=== PATIENT | male | born 1950 | race Caucasian/White ===

== ENCOUNTER 2019-08-08 03:00 | Inpatient (IN) | payer OTHER ==
[2019-08-08] MEDS ORDERED: NA CHLORIDE 0.9% 1,000 ML ONE (03:27)
[2019-08-08] MEDS ORDERED: LABETALOL 20 MG/4ML SYRINGE IV ONE (03:27)
[2019-08-08] MEDS ORDERED: ONDANSETRON 4 MG/2 ML VIAL ONE (03:27)
[2019-08-08] MEDS ORDERED: MORPHINE 4 MG/ML SYR ONE (03:27)
[2019-08-08 03:59] LABS: Basophils % 1.2 % (0-1.3); Hematocrit 32.8 % (39.6-49.0); Lymphocytes % 8.5 % (15.3-44.8); MPV 8.9 fL (7.6-11.3); RBC Red Blood Cell Count 3.67 M/uL (4.33-5.43)
[2019-08-08] MEDS ORDERED: LIDOCAINE 1% MPF 5 ML VIAL ONE (04:23)
[2019-08-08 04:29] LABS: Albumin 2.1 g/dL (3.4-5.0); Bilirubin Direct 0.1 mg/dL (0-0.2); Bilirubin Total 0.3 mg/dL (0.2-1.0); Potassium 3.8 mmol/L (3.5-5.1); Protein, Total 7.3 g/dL (6.4-8.2)
--- NOTE | 2019-08-08 05:21 | ER ---
Nurse's Notes [facility] Name: Matt Izquierdo Age: 69 yrs Sex: Male : 1950 Arrival Date: 08/08/2019 Time: 03:01 Bed 5 Private MD: Diagnosis: Cellulitis right foot and leg. Uncontrolled hypertension and diabetes. Non- compliance. Chronic renal disease Presentation: 08/08 03:09 Presenting complaint: Patient states: Bilateral foot pain, has not been able to afford lp1 medications; States stepping on a nail about 1 week ago to bottom of right foot, continued pain. Transition of care: patient was not received from another setting of care. Onset of symptoms was August 08, 2019. Risk Assessment: Do you want to hurt yourself or someone else? Patient reports no desire to harm self or others. Care prior to arrival: None. 03:09 Method Of Arrival: Wheelchair lp1 03:09 Acuity: KIRSTY 3 lp1 Historical: - Allergies: 03:12 No Known Allergies; lp1 - Home Meds: 03:12 gabapentin oral oral [Active]; Novolin 70/30 [place] Sub-Q [Active]; metformin Oral lp1 [Active]; - PMHx: 03:12 Hypertension; Diabetes - IDDM; Myocardial infarction; Anxiety; Pancreatitis; lp1 - PSHx: 03:12 Appendectomy; Heart stents; lp1 - Immunization history:: Adult Immunizations up to date. - Social history:: Smoking status: Patient/guardian denies using tobacco. - Ebola Screening: : No symptoms or risks identified at this time. Screenin:12 Abuse screen: Denies threats or abuse. Denies injuries from another. Nutritional lp1 screening: No deficits noted. Tuberculosis screening: No symptoms or risk factors identified. 03:45 Fall Risk IV access (20 points). Ambulatory Aid- Crutches/Cane/Walker (15 pts). Total jb4 Magdaleno Fall Scale indicates Low Risk Score (25-44 pts). Fall prevention measures have been instituted. Side Rails Up X 2 Placed close to Nursing Station Frequent Obs/Assesments occuring Family Present and informed to notify staff if they need to leave bedside As available Patient and Family Educated on Fall Prevention Program and strategies. Assessment: 03:15 General: Appears in no apparent distress. uncomfortable, Behavior is calm, cooperative, jb4 appropriate for age. Pain: Complains of pain in right foot, left foot, right leg and left leg Pain does not radiate. Pain currently is 9 out of 10 on a pain scale. Neuro: Level of Consciousness is awake, alert, obeys commands, Oriented to person, place, time, situation. Cardiovascular: Patient's skin is warm and dry. Respiratory: Airway is patent Respiratory effort is even, unlabored, Respiratory pattern is regular, symmetrical. GI: No signs and/or symptoms were reported involving the gastrointestinal system. : No signs and/or symptoms were reported regarding the genitourinary system. EENT: No signs and/or symptoms were reported regarding the EENT system. Derm: Skin is intact, Skin is pink, warm \T\ dry. Right foot is red and hot to the touch. Right 3rd toe noted to be reddened and swollen. Hot to the touch. Blanchable dime sized black spot noted to the dorsal aspect 3rd right toe. Non blanchable soft spot noted to the ventral aspect of 3rd right toe. Provider notified. Musculoskeletal: Circulation, motion, and sensation intact. Swelling present in right foot, right lower leg. 03:54 Reassessment: Patient appears in no apparent distress at this time. Patient and/or jb4 family updated on plan of care and expected duration. Pain level reassessed. Patient is alert, oriented x 3, equal unlabored respirations, skin warm/dry/pink. Patient states feeling better. 04:30 Reassessment: Patient appears in no apparent distress at this time. Patient and/or jb4 family updated on plan of care and expected duration. Pain level reassessed. Patient is alert, oriented x 3, equal unlabored respirations, skin warm/dry/pink. Assisted provider with I\T\D. 05:30 Reassessment: Patient appears in no apparent distress at this time. Patient and/or jb4 family updated on plan of care and expected duration. Pain level reassessed. Patient is alert, oriented x 3, equal unlabored respirations, skin warm/dry/pink. PT is resting in bed with eyes closed, respirations even and unlabored. no s/s of distress or pain noted. 06:13 Reassessment: Patient appears in no apparent distress at this time. No changes from jb4 previously documented assessment. Patient and/or family updated on plan of care and expected duration. Pain level reassessed. 07:36 Reassessment: Patient appears in no apparent distress at this time. Patient and/or ph family updated on plan of care and expected duration. Pain level reassessed. Patient is alert, oriented x 3, equal unlabored respirations, skin warm/dry/pink. Pt resting comfortably, urinal provided, report called to Yelitza GARCIA on second. Vital Signs: 03:10 Weight 81.65 kg (R); Height 5 ft. 11 in. (180.34 cm); Pain 9/10; lp1 03:14 BP 205 / 101; Pulse 85; Resp 18; Temp 98.4(O); Pulse Ox 99% on R/A; Pain 8/10; oe 03:45 BP 145 / 80; Pulse 70; Resp 16; Pulse Ox 95% on R/A; jb4 04:30 BP 161 / 94; Pulse 77; Resp 16; Pulse Ox 99% on R/A; jb4 05:00 BP 177 / 89; Pulse 69; Resp 16; Pulse Ox 97% on R/A; jb4 06:00 BP 152 / 74; Pulse 67; Resp 16; Pulse Ox 97% on R/A; jb4 07:05 BP 178 / 95; Pulse 78; Resp 17; Pulse Ox 98% on R/A; tw2 03:10 Body Mass Index 25.10 (81.65 kg, 180.34 cm) lp1 ED Course: 03:01 Patient arrived in ED. ds1 03:08 Alex Williamson MD is Attending Physician. pkl 03:10 Triage completed. lp1 03:10 Arm band placed on right wrist. lp1 03:15 mAada Menendez is Primary Nurse. wh 03:21 Primary Nurse role handed off by Amada Menendez jb4 03:21 Jayant Pro, RADHA is Primary Nurse. jb4 03:37 Inserted saline lock: 18 gauge in left antecubital area, using aseptic technique. Blood jb4 collected. 03:37 Initial lab(s) drawn, by me, sent to lab. First set of blood cultures drawn by me. jb4 03:45 Patient has correct armband on for positive identification. Placed in gown. Bed in low jb4 position. Call light in reach. Side rails up X 1. Pulse ox on. NIBP on. 04:07 Foot Right 3 View XRAY In Process Unspecified. EDMS 04:07 XRAY CXR (1 view) In Process Unspecified. EDMS 04:30 Assist provider with I \T\ D: of an abscess on right foot Set up I\T\D tray. Performed by carolin Williamson MD Culture sent to lab. Dressing with Neosporin and 4X4s, tape Patient tolerated well. 04:38 Notified ED physician of a critical lab result(s). d-dimer 1061. jb4 05:18 Gracy Amin MD is Hospitalizing Provider. pkl Administered Medications: 03:38 Drug: Zofran 4 mg Route: IVP; Site: left antecubital; jb4 04:00 Follow up: Response: No adverse reaction; Nausea is decreased jb4 03:41 Drug: morphine 4 mg {Note: Rass score 0.} Route: IVP; Site: left antecubital; jb4 04:00 Follow up: Response: No adverse reaction; Pain is decreased; RASS: Alert and Calm (0) jb4 03:43 Drug: Trandate 20 mg Route: IVP; Site: left antecubital; jb4 03:50 Follow up: Response: No adverse reaction; Blood pressure is lowered jb4 03:47 Drug: NS 0.9% 1000 ml Route: IV; Rate: 125 ml/hr; Site: left antecubital; jb4 07:18 Follow up: Response: No adverse reaction; IV Status: Infusion continued upon admission jb4 Outcome: 05:20 Decision to Hospitalize by Provider. pkl 07:59 Patient left the ED. ph Signatures: Dispatcher [employer] Alex Morgan MD MD pkl Jessie Mena ds1 Stefanie Hollis, RN RN lp1 Caity Moore RN RN ph Raven Dumont, RN RN tw2 Jayant Pro, RN RN jb4 Erick Aleman Winsy wh Corrections: (The following items were deleted from the chart) 03:18 03:15 Pain: Complains of pain in right foot, left foot, right leg and left leg Pain jb4 does not radiate. Pain currently is 8 out of 10 on a pain scale. jb4 03:20 03:15 Pain: Complains of pain in right foot, left foot, right leg and left leg Pain jb4 does not radiate. Pain currently is 8 out of 10 on a pain scale. jb4 04:06 03:15 Derm: Skin is intact, Skin is pink, warm \T\ dry. Right foot is red and hot to the jb4 touch. jb4 04:36 03:15 Derm: Skin is intact, Skin is pink, warm \T\ dry. Right foot is red and hot to the jb4 touch. Right 3rd toe noted to be reddened and swollen. Hot to the touch. Blanchable dime sized black spot noted to the dorsal aspect 3rd right toe. Non blanchable soft spot noted to the ventral aspect of 3rd right toe. jb4
--- NOTE | 2019-08-08 05:21 | EDPHYS ---
Physician Documentation [facility] Name: Matt Izquierdo Age: 69 yrs Sex: Male : 1950 Arrival Date: 08/08/2019 Time: 03:01 Bed 5 Private MD: ED Physician Alex Williamson HPI: 08/08 03:26 This 69 yrs old Male presents to ER via Wheelchair with complaints of Leg pkl Swelling, Foot Pain. 03:26 The patient presents with pain, that is acute. The complaints affect the right leg and pkl right foot. Context: resulted from stepped on a nail 1 week ago. Historical: - Allergies: 03:12 No Known Allergies; lp1 - Home Meds: 03:12 gabapentin oral oral [Active]; Novolin 70/30 [place] Sub-Q [Active]; metformin Oral lp1 [Active]; - PMHx: 03:12 Hypertension; Diabetes - IDDM; Myocardial infarction; Anxiety; Pancreatitis; lp1 - PSHx: 03:12 Appendectomy; Heart stents; lp1 - Immunization history:: Adult Immunizations up to date. - Social history:: Smoking status: Patient/guardian denies using tobacco. - Ebola Screening: : No symptoms or risks identified at this time. ROS: 03:26 MS/extremity: Positive for erythema, pain, swelling, of the right leg and right foot. pkl 03:26 Eyes: Negative for injury, pain, redness, and discharge, ENT: Negative for injury, pain, and discharge, Neck: Negative for injury, pain, and swelling, Cardiovascular: Negative for chest pain, palpitations, and edema, Respiratory: Negative for shortness of breath, cough, wheezing, and pleuritic chest pain, Abdomen/GI: Negative for abdominal pain, nausea, vomiting, diarrhea, and constipation, Back: Negative for injury and pain, : Negative for injury, bleeding, discharge, and swelling. 03:26 MS/extremity: Positive for erythema, pain, puncture, swelling, tenderness, of the right leg and right foot. 03:26 Neuro: Negative for altered mental status. Exam: 03:26 Head/Face: Normocephalic, atraumatic. Eyes: Pupils equal round and reactive to light, pkl extra-ocular motions intact. Lids and lashes normal. Conjunctiva and sclera are non-icteric and not injected. Cornea within normal limits. Periorbital areas with no swelling, redness, or edema. ENT: Nares patent. No nasal discharge, no septal abnormalities noted. Tympanic membranes are normal and external auditory canals are clear. Oropharynx with no redness, swelling, or masses, exudates, or evidence of obstruction, uvula midline. Mucous membranes moist. Neck: Trachea midline, no thyromegaly or masses palpated, and no cervical lymphadenopathy. Supple, full range of motion without nuchal rigidity, or vertebral point tenderness. No Meningismus. Chest/axilla: Normal chest wall appearance and motion. Nontender with no deformity. No lesions are appreciated. Cardiovascular: Regular rate and rhythm with a normal S1 and S2. No gallops, murmurs, or rubs. Normal PMI, no JVD. No pulse deficits. Respiratory: Lungs have equal breath sounds bilaterally, clear to auscultation and percussion. No rales, rhonchi or wheezes noted. No increased work of breathing, no retractions or nasal flaring. Abdomen/GI: Soft, non-tender, with normal bowel sounds. No distension or tympany. No guarding or rebound. No evidence of tenderness throughout. Back: No spinal tenderness. No costovertebral tenderness. Full range of motion. 03:26 Musculoskeletal/extremity: Extremities: grossly normal except: noted in the right foot: erythema, pain, puncture, swelling. 03:26 Neuro: Orientation: is normal, Mentation: is normal, Cranial nerves: grossly normal, Motor: is normal. Vital Signs: 03:10 Weight 81.65 kg (R); Height 5 ft. 11 in. (180.34 cm); Pain 9/10; lp1 03:14 BP 205 / 101; Pulse 85; Resp 18; Temp 98.4(O); Pulse Ox 99% on R/A; Pain 8/10; oe 03:45 BP 145 / 80; Pulse 70; Resp 16; Pulse Ox 95% on R/A; jb4 04:30 BP 161 / 94; Pulse 77; Resp 16; Pulse Ox 99% on R/A; jb4 05:00 BP 177 / 89; Pulse 69; Resp 16; Pulse Ox 97% on R/A; jb4 06:00 BP 152 / 74; Pulse 67; Resp 16; Pulse Ox 97% on R/A; jb4 07:05 BP 178 / 95; Pulse 78; Resp 17; Pulse Ox 98% on R/A; tw2 03:10 Body Mass Index 25.10 (81.65 kg, 180.34 cm) lp1 MDM: 03:08 Patient medically screened. pkl 04:49 Data reviewed: vital signs, nurses notes, lab test result(s). ED course: Discussed pk patient with Dr. Amin. Will see patient in ER and decide if patient will meet criteria for admission . 08/08 03:20 Order name: CBC with Diff; Complete Time: 04:27 pkl 08/08 03:20 Order name: Chem 7; Complete Time: 04:30 pkl 08/08 03:20 Order name: LFT's; Complete Time: 04:30 pkl 08/08 03:20 Order name: Blood Culture Adult (2) pkl 08/08 03:20 Order name: Sed Rate; Complete Time: 04:27 pkl 08/08 03:20 Order name: D-Dimer; Complete Time: 04:31 pkl 08/08 03:21 Order name: Lactate; Complete Time: 04:31 pkl 08/08 04:27 Order name: Wound Culture ao 08/08 06:08 Order name: CBC with Automated Diff EDMS 08/08 06:08 Order name: CBC with Automated Diff EDMS 08/08 06:08 Order name: CBC with Automated Diff EDMS 08/08 06:08 Order name: CBC with Automated Diff EDMS 08/08 06:09 Order name: Comprehensive Metabolic Panel EDMS 08/08 03:26 Order name: Foot Right 3 View XRAY pkl 08/08 03:38 Order name: XRAY CXR (1 view) pkl 08/08 04:36 Order name: US Extremity Venous Unilateral Ltd pkl 08/08 06:08 Order name: CONS Pharmacy Consult EDMS 08/08 06:09 Order name: Comprehensive Metabolic Panel EDMS 08/08 06:09 Order name: Troponin I EDMS 08/08 06:09 Order name: Troponin I EDMS 08/08 06:09 Order name: Troponin I EDMS 08/08 06:09 Order name: Troponin I EDMS 08/08 06:09 Order name: Vancomycin Level Trough EDMS 08/08 06:09 Order name: Vancomycin Level Trough EDMS 08/08 07:53 Order name: US EDSD 08/08 04:27 Order name: Wound Care; Complete Time: 04:35 ao 08/08 04:27 Order name: Wound dressing; Complete Time: 04:35 ao 08/08 06:08 Order name: CONS Pharmacy Consult EDSD 08/08 06:08 Order name: CONS Pharmacy Consult EDSD 08/08 06:08 Order name: Case Management Consult EDSD 08/08 06:08 Order name: CONS Physician Consult EDSD 08/08 06:08 Order name: Physical Therapy Consult EDSD 08/08 06:08 Order name: Consistent Carb (ADA) 1800 Mike EDSD Administered Medications: 03:38 Drug: Zofran 4 mg Route: IVP; Site: left antecubital; jb4 04:00 Follow up: Response: No adverse reaction; Nausea is decreased jb4 03:41 Drug: morphine 4 mg {Note: Rass score 0.} Route: IVP; Site: left antecubital; jb4 04:00 Follow up: Response: No adverse reaction; Pain is decreased; RASS: Alert and Calm (0) jb4 03:43 Drug: Trandate 20 mg Route: IVP; Site: left antecubital; jb4 03:50 Follow up: Response: No adverse reaction; Blood pressure is lowered jb4 03:47 Drug: NS 0.9% 1000 ml Route: IV; Rate: 125 ml/hr; Site: left antecubital; jb4 07:18 Follow up: Response: No adverse reaction; IV Status: Infusion continued upon admission jb4 Disposition: 08/08/19 05:20 Hospitalization ordered by Gracy Amin for Observation. Preliminary diagnosis is Cellulitis right foot and leg. Uncontrolled hypertension and diabetes. Non- compliance. Chronic renal disease. - Bed requested for Telemetry/MedSurg (observation). - Status is Observation. ph - Condition is Stable. - Problem is new. - Symptoms are unchanged. UTI on Admission? No Signatures: Dispatcher [employer] EDSD Alee Santacruz RN RN mw Lam, Pin, MD MD pkl Pena, Laura, RN RN lp1 Caity Moore RN RN ph Molina Estrada RN RN ao Bryson, James RN RN jb4 Corrections: (The following items were deleted from the chart) 03:22 03:21 HEMOGLOBIN A1C+CHEM A1C.LAB.BRZ ordered. EDMS EDMS 06:44 05:20 Hospitalization Ordered by Gracy Amin MD for Observation. Preliminary mw diagnosis is Cellulitis right foot and leg. Uncontrolled hypertension and diabetes. Non- compliance. Chronic renal disease. Bed requested for Telemetry/MedSurg (observation). Status is Observation. Condition is Stable. Problem is new. Symptoms are unchanged. UTI on Admission? No. pkl 07:59 06:44 08/08/2019 05:20 Hospitalization Ordered by Gracy Amin MD for Observation. ph Preliminary diagnosis is Cellulitis right foot and leg. Uncontrolled hypertension and diabetes. Non- compliance. Chronic renal disease. Bed requested for Telemetry/MedSurg (observation). Status is Observation. Condition is Stable. Problem is new. Symptoms are unchanged. UTI on Admission? No. mw
[2019-08-08] MEDS ORDERED: ONDANSETRON 4 MG/2 ML VIAL IV PRN (06:01)
[2019-08-08] MEDS ORDERED: Oxycodone HCl/Acetaminophen 1 TAB TAB PO PRN (06:02)
[2019-08-08] MEDS ORDERED: GLUCAGON 1 MG/VIAL IM PRN (06:03)
[2019-08-08] MEDS ORDERED: D50W 25 GM/50 ML SYRINGE/VIAL IV PRN (06:03)
[2019-08-08] MEDS: NA CHLORIDE 0.9% 1,000 ML IV SCH ×2 (07:00→17:56)
--- NOTE | 2019-08-08 07:53 | RAD REPORT ---
EXAM DESCRIPTION: Korey Single View08/08/2019 4:07 am CLINICAL HISTORY: Hypertension COMPARISON: 2016 FINDINGS: The lungs appear clear of acute infiltrate. The heart is normal size IMPRESSION: No acute abnormalities displayed
--- NOTE | 2019-08-08 07:53 | RAD REPORT ---
EXAM DESCRIPTION: USExtremity Venous Uni Ltd08/08/2019 7:09 am CLINICAL HISTORY: Right leg swelling. COMPARISON: None. FINDINGS: Right common femoral, superficial femoral, popliteal and right posterior tibial veins are compressible and demonstrate augmentation. Doppler demonstrates good flow. IMPRESSION: No evidence of deep venous thrombosis involving the right lower extremity.
[2019-08-08] MEDS: VANCOMYCIN 1.5 GM in NA CHLORIDE 0.9% 500 ML IVPB SCH (08:00)
[2019-08-08] MEDS: ENOXAPARIN 80 MG/0.8 ML SQ SCH ×2 (09:00→09:48)
[2019-08-08] MEDS: MORPHINE 2 MG/ML SYR IV PRN (09:45)
--- NOTE | 2019-08-08 09:45 | RAD REPORT ---
EXAM DESCRIPTION: RAD - Foot Right 3 View - 08/08/2019 4:07 am CLINICAL HISTORY: Right foot pain FINDINGS: No fracture or dislocation is seen The bones appear osteoporotic. No bony destructive lesion
[2019-08-08] MEDS: GABAPENTIN 300 MG CAP PO SCH ×3 (09:47→20:03)
[2019-08-08] MEDS: INSULIN -REGULAR HUMAN 50 UNIT/0.5 ML ML SQ SCH ×4 (09:48→20:49)
[2019-08-08] MEDS: HYDRALAZINE HCL 20 MG/ML VIAL IV PRN ×2 (09:49→20:50)
[2019-08-08] MEDS: INSULIN GLARGINE 100 UNITS/ML SQ SCH (09:49)
--- NOTE | 2019-08-08 11:18 | HP ---
Date of Admission: 08/08/2019 Chief Complaint: Right foot pain and swelling. History Of Presenting Complaint: Mr. Matt Izquierdo is a 69-year-old male with past medical history of hypertension, diabetes mellitus, CAD, who presented today because of worsening pain and r edness with swelling of the right foot after he stepped on a nail 2 weeks ago. The patient states th e symptoms continued to worsen. He also admitted to pain in this other foot due to his not being abl e to afford his Neurontin. The patient states he typically gets pain in both lower extremities when he is out of Neurontin. He had not been taking any of his medications including his insulin for diab etes since over the last 1 month due to financial issues. The patient denies any fever or chills. H e rates pain at about 8/10 now, but the pain is much worse when he ambulates. He has not seen any ph ysician or taken any antibiotics for this new onset of pain. He states he was admitted to [facility] 1 month ago for inability to afford this medication in the setting of elevated glucose level s. He denies any headache or dizziness. He states he is unable to recall all his medications except for Neurontin and insulin. Past Medical History: Significant for: 1.Hypertension. 2.Diabetes mellitus. 3.Diabetic neuropathy. 4.Chronic kidney disease with creatinine of 1.6 in 2017. 5.Coronary artery disease, status post 3 PCIs in the past, last was a year ago. 6.History of anxiety. 7.History of pancreatitis in the past. Past Surgical History: Significant for appendectomy. Allergies: NO KNOWN DRUG ALLERGIES. Home Medications: The patient states he takes Neurontin 300 t.i.d., Novolin 70/30, and metformin, bu t he has been unable to afford any of his medications for over a month. Family History: Significant for coronary artery disease. Social History: He denies any tobacco use. He denies any alcohol or illicit drug use. He states he gets benefits from social security, but it is barely enough for him to afford these medications. Review of Systems: All systems reviewed x14 were negative except as mentioned above. Physical Examination: Current Vital Signs: Blood pressure on presentation was 205/101. The current blood pressure improve d to 177/86, pulse of 75, respiratory rate of 18, temperature of 98.4, O2 saturation 99% on room air. General: A slightly overweight middle-aged male, appears older than stated age, lying in bed, calm, not in any distress, but appears to be anxious intermittently. HEENT: Head is atraumatic, normocephalic. Pupils are equal, reactive to light. Neck: No JVD. No carotid bruit. Respiratory: Good air entry with trace basilar crepitations. CARDIOVASCULAR: S1, S2. Rate and rhythm regular. GI: Abdomen full, soft, nontender. Bowel sounds positive. Extremities: No pedal edema or erythema over the left lower extremity, but the right extremity with edema extending from just above the ankle and involving the whole of the right foot. Punctate wound with drainage and surrounding erythema extending from the mid foot up to the toes with a punctate wou nd over the 3rd digit. Mild drainage noted. NEURO: The patient is alert and oriented. Moving extremities well. No neurological focal motor def icit. Laboratory Data: Chest x-ray shows mild pulmonary congestive changes, though there are no acute infi ltrates. Foot x-ray shows no osteophyte reaction. Images reviewed by me. WBC 11.2, hemoglobin 11.3, platelets 269. D-dimer of 1061. ESR of greater than 140. Sodium 134, po tassium 3.8, BUN 43, creatinine 3.15 and the last was 1.6 two years ago. Lactic acid 0.8. AST, zack line phosphatase normal. Albumin low at 2.1. Glucose 359. Impression: 1.Right foot traumatic cellulitis. 2.Medication nonadherence. 3.Hypertension, uncontrolled. 4.Diabetes mellitus, diet uncontrolled. 5.Acute on chronic kidney disease. 6.Diabetic neuropathy. Plan: We will admit the patient to observation and manage patient for the followin.Right foot cellulitis due to penetrating injury. We will start the patient on empiric vancomycin as well as clindamycin. We will obtain blood culture x2. We will also obtain culture from the wound . No evidence of osteomyelitis on x-ray of the foot, but given elevated D-dimer, we will obtain dupl ex to rule out DVT. We will start patient on empiric Lovenox q.12 for now. If persistent or nonheal ing symptoms, might need to consult Surgery for debridement of the puncture site. 2.Medication nonadherence due to financial issues. We will consult case management/sexual assault social worker to help with obtaining medications at home. 3.Hypertension, uncontrolled. We will start the patient on low-dose Norvasc. No KORI or ARB for now given the elevated creatinine. 4.Acute renal failure. Unclear if baseline worsening, but we will do gentle IV gentle fluids and fo llow. We will consult Nephrology. 5.Diabetes mellitus. We will resume the patient on insulin sliding scale with Accu-Chek and #2 Leve zuleyka 15 units q.12 while inpatient. 6.DVT prophylaxis: Follow plan for Lovenox q.12. 7.Advanced directives: The patient is full code. Total time spent with review of record, discussion with patient, and evaluation greater than 60 minvishal BOWER/TIM Voice ID: [id number]
[2019-08-08] MEDS: CLINDAMYCIN HCL 150 MG CAP PO SCH ×2 (12:22→18:00)
[2019-08-08] MEDS: CEFEPIME/SWI 2gm 2 GM/20 ML SYR IV SCH (13:30)
[2019-08-08 14:52] VITALS: BMI 25.1
[2019-08-08] MEDS ORDERED: Tdap (Diph,Pertuss(Acell),Tet Vac) 0.5 ML SYR IMVAC ONE (18:00)
--- NOTE | 2019-08-08 20:08 | RAD REPORT ---
EXAM DESCRIPTION: MRI - Foot Right Wo Cont - 08/08/2019 7:52 pm CLINICAL HISTORY: Osteomylitis Puncture wound to foot, pain and swelling COMPARISON: Foot Right 3 View dated 08/08/2019 FINDINGS: Diminished T1 signal and elevated T2/IR signal is seen involving the third metacarpal head and neck with the elevated T2 signal extending proximally in the third metatarsal shaft. The third m etatarsal head appears irregular. Subtle edema is also present involving the proximal phalanx of the third toe. There is surrounding edema in the soft tissues as well. No drainable fluid collection. No fracture seen. IMPRESSION: Mild osteomyelitis is suspected involving the third metatarsal, greatest in the region o f the third metatarsal head. Early involvement of the proximal phalanx of the third toe is also suspe cted.
[2019-08-08] MEDS: MELATONIN 5 MG TABLET PO PRN (20:50)
[2019-08-09] MEDS: AMLODIPINE 5 MG TAB PO SCH ×3 (00:09→20:35)
[2019-08-09] MEDS: MORPHINE 2 MG/ML SYR IV PRN (05:30)
[2019-08-09] MEDS: METOPROLOL TAR 50 MG TAB PO SCH ×2 (05:33→17:29)
[2019-08-09] MEDS: ACETAMINOPHEN 500 MG TAB PO PRN ×2 (05:36→20:36)
[2019-08-09 06:03] LABS: Absolute Lymphocytes (CBC) 0.9 K/uL (0.7-4.9); Hematocrit 31.8 % (39.6-49.0); Lymphocytes % 7.2 % (15.3-44.8); MPV 8.7 fL (7.6-11.3); RBC Red Blood Cell Count 3.56 M/uL (4.33-5.43)
[2019-08-09 06:23] LABS: Albumin 1.8 g/dL (3.4-5.0); Bilirubin Total 0.4 mg/dL (0.2-1.0); Potassium 4.6 mmol/L (3.5-5.1); Troponin I 0.03 ng/mL (0.0-0.045)
[2019-08-09] MEDS: INSULIN -REGULAR HUMAN 50 UNIT/0.5 ML ML SQ SCH ×4 (07:30→20:37)
[2019-08-09] MEDS: NA CHLORIDE 0.9% 1,000 ML IV SCH (08:52)
[2019-08-09] MEDS: INSULIN GLARGINE 100 UNITS/ML SQ SCH (08:53)
[2019-08-09] MEDS: GABAPENTIN 300 MG CAP PO SCH ×3 (08:54→20:35)
--- NOTE | 2019-08-09 13:59 | P.PN ---
Subjective Date of Service: 08/09/19 Primary Care Provider: unknown Subjective: Doing well Physical Examination - Vital Signs Temperature: 98.4 F Blood Pressure: 130/68 Pulse: 59 Respirations: 16 Pulse Ox (%): 94 - Physical Exam General: Alert, In no apparent distress, Oriented x3, Cooperative HEENT: Atraumatic Neck: Supple Respiratory: Clear to auscultation bilaterally, Normal air movement Cardiovascular: Normal pulses, Regular rate/rhythm Gastrointestinal: Normal bowel sounds, Soft and benign Neurological: Normal affect - Studies Microbiology Data (last 24 hrs): 08/08/19 04:25 Wound - Abscess Gram Stain - Final Medications List Reviewed: Yes Assessment & Plan Discharge Plan: LTAC Plan to discharge in: 24 Hours Physician Review Additional Text: Impression: Right foot traumatic/puncture cellulitis with noted osteomyelitis of the 3rd metatarsal, greatest in the region of the 3rd metatarsal head and proximal phalanx Hypertension uncontrolled Diabetes mellitus type 2 Acute on chronic renal disease stage IV Diabetic neuropathy Plan: Right foot traumatic/puncture cellulitis with noted osteomyelitis of the 3rd metatarsal, greatest in the region of the 3rd metatarsal head and proximal phalanx: Will continue with IV antibiotic therapy. Pharmacy monitor to adjust medication. MRI of reviewed. Patient will require long-term IV antibiotic therapy. Case discussed with surgery who agrees. Will consult long-term acute care facility placement for long-term IV antibiotic therapy and aggressive wound care. No DVT identified. PICC line ordered. Patient agrees to long-term acute care facility. Hypertension uncontrolled: Medication added. Will continue to adjust medication for better control. Diabetes mellitus type 2 uncontrolled: A1c 9.3. Blood sugar needs to be better controlled. Continue Accu-Cheks and monitor sliding scale. Acute on chronic renal disease stage IV: Will obtain renal ultrasound. Continue IV fluids. Will consult Nephrology to further evaluate. Diabetic neuropathy: Will provide medication for pain. Time Spent Managing Pts Care (In Minutes): 55
--- NOTE | 2019-08-09 14:24 | CON ---
Date of Consultation: 08/09/2019 Brief History Of Present Illness: Patient is a 69-year-old male with past medical history of hypertension, diabetes, coronary artery disease, who presents because of worsening pain and rednes s, swelling of the right foot after he stepped on a nail approximately 2 weeks ago. He states that h magaly stepped on the nail and he had to walk on it all the way home. It was then stuck in the web space of his right foot between the near the third web space of his right foot for several hours. He ultim ately had a good pair of pliers to remove it and states that it was almost an inch penetration at tay t time. He removed it and essentially noticed worsening redness, pain of that area and as such came with worsening pain, redness, swelling and cellulitis extending up to the midfoot. Past Medical History: Significant for hypertension; diabetes; diabetic neuropathy; coronary artery d isease, status post 3 PCIs in the past, last was year ago; CKD with creatinine 1.6; anxiety; pancreat itis. Past Surgical History: Significant for appendectomy. Allergies: NO KNOWN DRUG ALLERGIES. Medications: He takes Neurontin, Novolin, metformin, but unable to afford any of his medications ove r the month. Family History: Significant for coronary artery disease. Social History: He denies smoking, alcohol, or recreational drug use. He gets S [employer]. Review of Systems: A 10-point review of systems other than HPI, denies. Physical Examination: Vital Signs: At the time of my examination, his BMI is 25.1, temperature 98.4, respiratory rate 16, pulse is 59, blood pressure 130/68. General: He is awake, alert, and oriented. Psychiatric: He is conversive and appropriate. HEENT: He is normocephalic. His sclerae are anicteric. Extremities: Focused examination of the extremities, his right lower extremity has a penetrating wou nd that appears to have been incised in the third web space. The incision is approximately slightly larger than a quarter of a centimeter. It has some surrounding cellulitis. No drainage at this time . Palpation shows no fluctuance. He has some cellulitis extending up to the just beyond the midfoot on both the plantar and dorsal aspect of the foot. He has minimal tenderness to deep palpation of t he affected area of the third web space. There is some slight discoloration to the dorsal aspect of the foot, but no obvious wounds or fluctuance. Laboratory Data: He had laboratory exam, which revealed a white blood cell count 11.8, hemoglobin 11 .0, hematocrit 31.8, platelet count is 276. His neutrophils are 82%. His sodium 137, potassium 4.6, chloride 108, carbon dioxide 23, BUN 34, creatinine 3.09, glucose is 99, it was 359 on admission. L actic acid was 0.8. He had imaging performed which included a foot x-ray, which is officially read a s no fracture dislocation. The bones appear osteoporotic. No bony destructive lesions. Additionall y, he had a MRI of the right foot, which was officially read as mild osteomyelitis is suspected invol ving the third metatarsal, greatest in the region of the third metatarsal head and early involvement of proximal phalanx of the third toe is also suspected. There is no drainable fluid collection. No fracture seen. There is edema in the soft tissues as well. He had a chest x-ray performed, which wa s officially read as no acute abnormalities displayed. He additionally had an extremity venous study , which was officially read, no evidence of DVT in the right lower extremity. Assessment And Plan: A 69-year-old male who comes in with penetrating wound to the right foot and a history of diabetes and noncompliance with medications. 1.Continue medical management. 2.Antibiotic coverage. 3.Pack the wound with iodoform packing daily, elevation, and serial exams. There is no drainable co llections at this time and no necrotic tissue. However, he has what appears to be early osteomyeliti s. I have explained the operative versus nonoperative management with long-term antibiotics. He agr ees to proceed with nonoperative management at this time and does not want to consider any surgical i ntervention. I will remain available should he changes mind. Thank you for this interesting consult. JOSE/TIM Voice ID: [id number] Report ID: [id number]
[2019-08-09] MEDS: CEFEPIME/SWI 2gm 2 GM/20 ML SYR IV SCH (16:15)
[2019-08-09] MEDS: ENOXAPARIN 30 MG/0.3 ML SQ SCH (16:22)
[2019-08-09] MEDS: VANCOMYCIN 1.5 GM in NA CHLORIDE 0.9% 500 ML IVPB SCH (20:33)
[2019-08-09] MEDS: MELATONIN 5 MG TABLET PO PRN (20:36)
[2019-08-10] MEDS: NA CHLORIDE 0.9% 1,000 ML IV SCH ×3 (00:44→21:05)
[2019-08-10] MEDS: ACETAMINOPHEN 500 MG TAB PO PRN ×2 (04:45→15:27)
[2019-08-10] MEDS: METOPROLOL TAR 50 MG TAB PO SCH ×2 (05:01→16:52)
[2019-08-10 05:25] LABS: Absolute Lymphocytes (CBC) 1.2 K/uL (0.7-4.9); Basophils % 0.1 % (0-1.3); Hematocrit 31.2 % (39.6-49.0); Lymphocytes % 8.9 % (15.3-44.8); MPV 8.8 fL (7.6-11.3); RBC Red Blood Cell Count 3.47 M/uL (4.33-5.43)
[2019-08-10 05:45] LABS: Potassium 4.5 mmol/L (3.5-5.1)
[2019-08-10] MEDS: INSULIN -REGULAR HUMAN 50 UNIT/0.5 ML ML SQ SCH ×4 (07:30→21:01)
[2019-08-10] MEDS: INSULIN GLARGINE 100 UNITS/ML SQ SCH (08:59)
[2019-08-10] MEDS: GABAPENTIN 300 MG CAP PO SCH ×3 (08:59→21:00)
[2019-08-10] MEDS: AMLODIPINE 5 MG TAB PO SCH ×2 (08:59→21:00)
--- NOTE | 2019-08-10 10:48 | P.PN ---
Subjective Date of Service: 08/10/19 Primary Care Provider: unknown Chief Complaint: Right foot pain Subjective: Doing well Physical Examination - Vital Signs Temperature: 98.8 F Blood Pressure: 146/74 Pulse: 66 Respirations: 17 Pulse Ox (%): 94 - Physical Exam General: Alert, In no apparent distress, Cooperative HEENT: Atraumatic Neck: Supple Respiratory: Clear to auscultation bilaterally, Normal air movement Cardiovascular: Normal pulses, Regular rate/rhythm Gastrointestinal: Normal bowel sounds Musculoskeletal: Other (Bandage to the right lower extremity) Neurological: Normal speech, Normal strength at 5/5 x4 extr, Normal tone, Normal affect - Studies Microbiology Data (last 24 hrs): 08/08/19 04:25 Wound - Abscess Gram Stain - Final Medications List Reviewed: Yes Assessment & Plan Discharge Plan: LTAC Plan to discharge in: 72 Hours Physician Review Additional Text: Impression: Right foot traumatic/puncture cellulitis with noted osteomyelitis of the 3rd metatarsal, greatest in the region of the 3rd metatarsal head and proximal phalanx Hypertension uncontrolled Diabetes mellitus type 2 Acute on chronic renal disease stage IV Diabetic neuropathy Anemia of chronic disease Plan: Right foot traumatic/puncture cellulitis with noted osteomyelitis of the 3rd metatarsal, greatest in the region of the 3rd metatarsal head and proximal phalanx: Will continue with IV antibiotic therapy. Wound culture pending. Pharmacy monitor to adjust medication. MRI reviewed. Patient will require long -term IV antibiotic therapy and aggressive wound care. Case discussed with surgery who agrees. Long-term acute care facility placement was consulted. Spoke with facility. Transfer will likely occur on Tuesday if approved by insurance. Continue current treatment. I will turn the service over to the hospitalist team tomorrow. I will go over plan of care with the team. Hypertension uncontrolled: Blood pressure better controlled with addition of medication. Will continue to adjust medication for better control. Diabetes mellitus type 2 uncontrolled: A1c 9.3. Continue basal insulin. Will continue to adjust for better control. Continue Accu-Cheks and monitor sliding scale. Acute on chronic renal disease stage IV: Continue IV fluids. Will discuss with nephrology. Await further recommendations. Diabetic neuropathy: Continue with medication for pain. Anemia of chronic disease: Will continue to monitor closely. Time Spent Managing Pts Care (In Minutes): 55
[2019-08-10] MEDS: MORPHINE 2 MG/ML SYR IV PRN (12:26)
--- NOTE | 2019-08-10 13:11 | RAD REPORT ---
EXAM DESCRIPTION: US - Renal Ultrasound-Complete - 08/10/2019 12:24 pm CLINICAL HISTORY: Acute kidney injury COMPARISON: None. FINDINGS: The right kidney measures 10.1 x 5.6 x 5.6 cm. The left kidney measures 10.9 x 5.6 x 4.2 cm. Renal cortical thickness and echogenicity are normal. No hydronephrosis or suspicious renal mass. No bladder wall thickening or mass. No intraluminal stone or mass. IMPRESSION: No hydronephrosis or suspicious renal mass. No other significant findings.
[2019-08-10] MEDS: ENOXAPARIN 30 MG/0.3 ML SQ SCH (15:28)
[2019-08-10] MEDS: CEFEPIME/SWI 2gm 2 GM/20 ML SYR IV SCH (16:53)
--- NOTE | 2019-08-10 18:57 | CON ---
Date of Consultation: 08/10/2019 Reason For Consultation: Elevated BUN and creatinine, fluid management. History Of Present Illness: This is a pleasant 69-year-old gentleman with significant past medical h istory of diabetes since 1994, complicated with neuropathy; coronary artery disease, status post PTCA 3 times; hypertension; hyperlipidemia. Patient had chronic kidney disease with baseline creatinine of 1.1 back in 2016. At that time, his GFR within normal limit. Patient came to the hospital that h e stepped on nail and his leg started swelling with erythema. For that reason, he reported to the [facility], found to have diabetic foot and osteomyelitis confirmed with MRI. Lab showed elevation in BUN and creatinine. Creatinine 3.3, GFR of 18. For that reason, we have yinka gavin consulted. Patient denied taking any nonsteroidal. No IV contrast. Past Medical History: Include; 1.Diabetes complicated with neuropathy. No retinopathy. 2.Hypertension. 3.Hyperlipidemia. 4.Coronary artery disease, status post PTCA, status post RI. Past Surgical History: Appendectomy. Allergies: NO KNOWN DRUGS ALLERGY. Family History: Positive for coronary artery disease and hypertension. Social History: Denies smoking. Denies alcohol. Denies drugs abuse. Home Medications: Patient off his medication for the last month as he ran out financially. Current medications in the hospital include; Norvasc 5 mg b.i.d., Lovenox, gabapentin, hydralazine 10 0 q.i.d., metoprolol, Zofran, and vancomycin. Review of Systems: Head and Neck: No red eye. No ear pain. GI: No nausea, no vomiting. : No polyuria, no dysuria, no hematuria. HOSPITALITY INTERNSHIP: Not applicable. Respiratory: No shortness of breath. Cardiovascular: No chest pain. Endocrine: No polydipsia. Skin: No rash. Neuro: Has neuropathy. Musculoskeletal: Has foot pain. Physical Examination: Vital Signs: When I saw the patient, patient lying in bed. Blood pressure 146/66, pulse of 98, afeb rile. Patient had good urine output. Chest: Clear to auscultation. Heart: S1, S2. Regular. Abdomen: Soft, nontender. Extremities: No edema. Dressing on the left foot. Laboratory Data: Sodium 138, potassium 4.5, bicarb 24, BUN 44, creatinine 3.3, GFR of 18, calcium 8. 5, magnesium of 2. WBC 13.8, H and H 10.8/31.2, platelets 295. Renal ultrasound showing normal size kidney 10.1/10.9, no hydronephrosis. Assessment And Plan: 1.Acute kidney injury, possible progression of disease/superimposed with diabetes, hypertension, and nephrosclerosis. With the presence of anemia, light chain disease needs to be ruled out. We will s end for serology and serum protein electrophoresis. I agree with holding any KORI inhibitor or ARB fo r the time being. We will start the patient on hydration and we will follow up the patient. I am go ing to send for PTH and protein creatinine. 2.Hypertension, controlled, not optimal. Patient started on amlodipine and beta liban. We will f ollow up response. We will keep holding any KORI inhibitor and ARB for the time being. 3.Osteomyelitis. Patient on cefepime and vancomycin. Patient going to need for residential dose appr opriate. We will follow up vancomycin trough. 4.Diabetes, as by primary. 5.Anemia with the presence of acute kidney injury. Light chain disease needs to be ruled out. We w ill send for the workup. CHERYL/TIM Voice ID: [id number] Report ID: [id number]
[2019-08-10 22:10] LABS: Urine Appearance CLEAR; Urine Bilirubin NEGATIVE (NEG); Urine Blood 1+ (NEG); Urine Color YELLOW; Urine Glucose 1+ (NEG); Urine Protein 3+ (NEG); Urine Urobilinogen 0.2 mg/dL (0.2-1.0); Urine pH 5.5 (5.0-7.0)
[2019-08-10 22:12] LABS: Urine Microscopic Reflex ORDER UMIC
[2019-08-10 22:24] LABS: Urine Amorphous Sediment 1+ /HPF (NONE SEEN); Urine Bacteria 20-50 /HPF (NONE SEEN); Urine Culture Reflex Order REFLEXED; Urine Mucus 1+ /HPF (NONE SEEN); Urine RBC <5 /HPF (NONE SEEN)
[2019-08-10 22:39] LABS: Urine Protein/Creatinine Ratio 3.48 ratio (<0.15)
[2019-08-11 05:54] LABS: Absolute Lymphocytes (CBC) 0.7 K/uL (0.7-4.9); Basophils % 0.4 % (0-1.3); Hematocrit 29.2 % (39.6-49.0); Lymphocytes % 5.8 % (15.3-44.8); MPV 8.7 fL (7.6-11.3); RBC Red Blood Cell Count 3.27 M/uL (4.33-5.43)
[2019-08-11] MEDS: METOPROLOL TAR 50 MG TAB PO SCH ×2 (06:01→16:59)
[2019-08-11 07:01] LABS: Albumin 1.4 g/dL (3.4-5.0); Ferritin 768.6 ng/mL (26-388); Folic Acid, (Folate) 5.4 ng/mL (3.1-17.5); Magnesium 1.9 mg/dL (1.8-2.4); Phosphorus 3.8 mg/dL (2.5-4.9); Potassium 4.1 mmol/L (3.5-5.1); Thyroid Stimulating Hormone 0.999 uIU/mL (0.360-3.740); Uric Acid 5.7 mg/dL (3.5-7.2)
[2019-08-11] MEDS: INSULIN -REGULAR HUMAN 50 UNIT/0.5 ML ML SQ SCH ×4 (07:30→21:24)
[2019-08-11] MEDS: VANCOMYCIN 1.5 GM in NA CHLORIDE 0.9% 500 ML IVPB SCH (08:00)
[2019-08-11] MEDS: GABAPENTIN 300 MG CAP PO SCH ×3 (08:59→21:25)
[2019-08-11] MEDS: AMLODIPINE 5 MG TAB PO SCH ×2 (08:59→21:25)
[2019-08-11] MEDS: INSULIN GLARGINE 100 UNITS/ML SQ SCH (09:00)
--- NOTE | 2019-08-11 10:17 | P.PN ---
Subjective Date of Service: 08/11/19 (Hospitalist) Primary Care Provider: unknown Chief Complaint: Osteomyelitis of the right foot Patient has no pain awaiting PICC line wound shows Staph patient is agitated wants to ambulate Review of Systems Unremarkable Physical Examination - Vital Signs Temperature: 99.9 F Blood Pressure: 168/92 Pulse: 62 Respirations: 20 Pulse Ox (%): 94 - Physical Exam General: Alert, Oriented x3 Neck: Supple Respiratory: Clear to auscultation bilaterally Cardiovascular: No edema, Normal S1 S2 - Studies Microbiology Data (last 24 hrs): 08/08/19 04:25 Wound - Abscess Gram Stain - Final 08/08/19 04:25 Wound - Abscess Culture & Sensitivity - Final Staphylococcus Intermedius Medications List Reviewed: Yes Assessment & Plan - Problems (Diagnosis) (1) Osteomyelitis Current Visit: Yes Status: Acute Plan: Patient is 69 years of age admitted with osteomyelitis of the right foot patient has chronic renal failure white count is declining MRI of the foot shows mild osteomyelitis vital signs stable ambulate patient can be managed with p.o. levofloxacin for a prolonged period possible discharge tomorrow Qualifiers: Osteomyelitis location: foot Laterality: right Physician Review Additional Text: Impression: Right foot traumatic/puncture cellulitis with noted osteomyelitis of the 3rd metatarsal, greatest in the region of the 3rd metatarsal head and proximal phalanx Hypertension uncontrolled Diabetes mellitus type 2 Acute on chronic renal disease stage IV Diabetic neuropathy Anemia of chronic disease Plan: Right foot traumatic/puncture cellulitis with noted osteomyelitis of the 3rd metatarsal, greatest in the region of the 3rd metatarsal head and proximal phalanx: Will continue with IV antibiotic therapy. Wound culture pending. Pharmacy monitor to adjust medication. MRI reviewed. Patient will require long -term IV antibiotic therapy and aggressive wound care. Case discussed with surgery who agrees. Long-term acute care facility placement was consulted. Spoke with facility. Transfer will likely occur on Tuesday if approved by insurance. Continue current treatment. I will turn the service over to the hospitalist team tomorrow. I will go over plan of care with the team. Hypertension uncontrolled: Blood pressure better controlled with addition of medication. Will continue to adjust medication for better control. Diabetes mellitus type 2 uncontrolled: A1c 9.3. Continue basal insulin. Will continue to adjust for better control. Continue Accu-Cheks and monitor sliding scale. Acute on chronic renal disease stage IV: Continue IV fluids. Will discuss with nephrology. Await further recommendations. Diabetic neuropathy: Continue with medication for pain. Anemia of chronic disease: Will continue to monitor closely.
[2019-08-11] MEDS ORDERED: SOD FERRIC GLUC COMPLX/SUCROSE 250 MG in NA CHLORIDE 0.9% 250 ML IV SCH (12:00)
[2019-08-11] MEDS: NA CHLORIDE 0.9% 1,000 ML IV SCH (12:45)
--- NOTE | 2019-08-11 16:25 | PN ---
Date of Progress Note: 08/11/2019 Subjective: Patient was admitted with acute kidney injury, osteomyelitis on his right foot after rei pping on nail. Physical Examination: Vital Signs: Blood pressure 168/92, pulse of 62, afebrile. Patient had good urine output. Chest: Clear to auscultation. Heart: S1, S2. Regular. Abdomen: Soft, nontender. Extremities: No edema. Dressing on the right foot. Laboratory Data: WBC 11.9, H and H 10.1/29.2, platelet 316. Sodium 139, potassium 4.1, bicarb 20, B UN 47, creatinine down to 3.1, GFR of 20, uric acid 5.7, calcium 7.7, phosphorus 3.8, magnesium 1.9, T-sat of 14, ferritin 768. Albumin 1.4, PTH 142. TSH 0.9. PC ratio 3.4. Vanc trough of 18. Serol ogy still pending. Renal ultrasound showing normal size kidney 10.1/10.9, no hydronephrosis. Current Medications: Include: 1.Levaquin. 2.Vancomycin. 3.Amlodipine 5 mg. 4.Metoprolol 50 b.i.d. 5.Gabapentin. 6.IV fluid 100 per hour. Assessment And Plan: 1.Acute kidney injury on chronic kidney disease, mostly normal size kidney with nephrotic-range prot einuria mostly secondary to diabetes, nephropathy with component of the acute as a prerenal/toxic acu te tubular necrosis/progression of the disease because of poor compliance. Serology workup is still pending for the nephrotic-range proteinuria. We will follow up. 2.Secondary hyperparathyroidism. No need for calcitriol for the time being as it is on the target. 3.Hypertension, not controlled. I am going to start the patient on hydralazine. We will keep holdi ng the KORI inhibitor or ARB for the time being given the acute kidney injury. 4.Nephrotic range of proteinuria with the presence of acute kidney injury and anemia. We will follo w up serology. Follow up serum protein electrophoresis. 5.Iron-deficiency anemia. Start the patient on IV iron. We will follow up. 6.Osteomyelitis as by the Primary. 7.Diabetes as by the Primary. CHERYL/SHARRONL Voice ID: [id number] Report ID: [id number]
[2019-08-11] MEDS: MORPHINE 2 MG/ML SYR IV PRN (16:58)
[2019-08-11] MEDS: ENOXAPARIN 30 MG/0.3 ML SQ SCH (17:00)
[2019-08-11] MEDS: HYDRALAZINE HCL 25 MG TABLET PO SCH (21:25)
[2019-08-11 22:28] LABS: Rheumatoid Factor NEG (NEG)
[2019-08-12] MEDS: MORPHINE 2 MG/ML SYR IV PRN ×2 (00:54→06:36)
[2019-08-12] MEDS: METOPROLOL TAR 50 MG TAB PO SCH (06:28)
[2019-08-12 07:00] LABS: Albumin 1.5 g/dL (3.4-5.0); Magnesium 1.8 mg/dL (1.8-2.4); Phosphorus 3.5 mg/dL (2.5-4.9); Potassium 4.1 mmol/L (3.5-5.1)
[2019-08-12 07:01] LABS: Absolute Lymphocytes (CBC) 0.9 K/uL (0.7-4.9); Basophils % 0.2 % (0-1.3); Hematocrit 28.8 % (39.6-49.0); Lymphocytes % 8.2 % (15.3-44.8); MPV 9.2 fL (7.6-11.3); RBC Red Blood Cell Count 3.19 M/uL (4.33-5.43)
[2019-08-12] MEDS: INSULIN -REGULAR HUMAN 50 UNIT/0.5 ML ML SQ SCH (07:30)
[2019-08-12] MEDS: NA CHLORIDE 0.9% 1,000 ML IV SCH (08:00)
[2019-08-12] MEDS ORDERED: MAGNESIUM SULFATE 1 gm IVPB 1 GM/100 ML BAG IV ONE (09:00)
[2019-08-12] MEDS ORDERED: levoFLOXacin 500 MG TAB PO SCH (09:00)
[2019-08-12] MEDS: AMLODIPINE 5 MG TAB PO SCH (09:04)
[2019-08-12] MEDS: GABAPENTIN 300 MG CAP PO SCH (09:05)
[2019-08-12] MEDS: HYDRALAZINE HCL 25 MG TABLET PO SCH (09:05)
[2019-08-12] MEDS: INSULIN GLARGINE 100 UNITS/ML SQ SCH (09:06)
[2019-08-12 09:08] VITALS: BP 152/84
--- NOTE | 2019-08-12 09:19 | P.DS ---
Admission Date: 08/08/19 Discharge Date: 08/12/19 Primary Care Provider: unknown Disposition: ROUTINE DISCHARGE Discharge Condition: FAIR Reason for Admission: Osteomyelitis of the right foot - Problems (1) Osteomyelitis Current Visit: Yes Status: Acute Qualifiers: Osteomyelitis location: foot Laterality: right Brief History of Present Illness: Patient admitted with pain in the right foot and swelling was found to have osteomyelitis Hospital Course: Admitted treated with IV antibiotics seen by general surgery. MRI of the foot done seen by Nephrology at the time of discharge patient ambulating vital signs stable labs reviewed chronic renal failure wound culture shows Staph intermedius white count was declining on examination alert oriented responsive cooperative ambulating with a walker chest clear cardiovascular system os sounds normal he does have a bandage on the right foot eating and drinking plan to discharge on Levaquin 500 mg every other day 14 pills given to follow up with that doctor John next week Vital Signs/Physical Exam: Temp Pulse Resp BP Pulse Ox 99.5 F 58 20 152/84 H 90 L 08/12/19 04:00 08/12/19 09:04 08/12/19 06:36 08/12/19 09:04 08/12/19 06:36 Laboratory Data at Discharge: WBC 11.2 K/uL (4.3-10.9) H 08/12/19 05:23 Hgb 9.8 g/dL (13.6-17.9) L 08/12/19 05:23 Hct 28.8 % (39.6-49.0) L 08/12/19 05:23 Plt Count 346 K/uL (152-406) 08/12/19 05:23 Sodium 141 mmol/L (136-145) 08/12/19 05:23 Potassium 4.1 mmol/L (3.5-5.1) 08/12/19 05:23 BUN 46 mg/dL (7-18) H 08/12/19 05:23 Creatinine 3.16 mg/dL (0.55-1.3) H 08/12/19 05:23 Glucose 84 mg/dL (74-106) 08/12/19 05:23 Uric Acid 5.7 mg/dL (3.5-7.2) 08/11/19 05:20 Phosphorus 3.5 mg/dL (2.5-4.9) 08/12/19 05:23 Magnesium 1.8 mg/dL (1.8-2.4) 08/12/19 05:23 Total Bilirubin 0.4 mg/dL (0.2-1.0) 08/09/19 05:44 AST 10 U/L (15-37) L 08/09/19 05:44 ALT 15 U/L (12-78) 08/09/19 05:44 Alkaline Phosphatase 98 U/L (45-117) 08/09/19 05:44 Troponin I 0.03 ng/mL (0.0-0.045) 08/09/19 05:44 Home Medications: Gabapentin 300 mg PO TID 08/08/19 Insulin 70/30 NPH/Reg Human [Novolin 70/30*] 35 unit SQ TID 08/08/19 Metformin HCl [Glucophage*] 1 tab PO TID 08/08/19 Patient Discharge Instructions: Please call in prescription for Levaquin 500 mg every other day quantity 14. Diet: Renal Activity: Ad john Followup: Miko Hobbs MD [ACTIVE - CAN ADMIT] -
[2019-08-12 10:02] VITALS: TEMP 99.6
[2019-08-12 10:49] VITALS: O2SAT 94
[2019-08-14 03:06] LABS: HBsAG Nonreactive (Nonreactive)
[2019-08-14 04:21] LABS: Alpha-1-Globulins 0.5 g/dL (0.2-0.3); Gamma Globulins 0.9 g/dL (0.8-1.7); INTERPRETATION REPORT
[2019-08-14 10:09] LABS: HIV AG/AB 4TH GEN Non-reactive (Non-reactive); Vitamin D 1,25-Dihydroxy Total 10 pg/mL (18-72); Vitamin D,1,25-OH2, D2 <8 pg/mL
[2019-08-14 18:07] LABS: Hepatitis C Virus RNA (PCR)log <1.18 log IU/mL
== END 2019-08-12 10:32 | disposition home or self-care (01) | DRG 638 ==
LOC: ER 03:00 → ERHOLD 06:16 → OBSVTOIN 06:16 → 2ND 07:38
PROVIDERS: ADMIT Internal Medicine; ATTEND Internal Medicine
DX: E11.69 Type 2 diabetes mellitus with other specified complication (principal); M86.171 Other acute osteomyelitis, right ankle and foot; B95.7 Other staphylococcus as the cause of diseases classified elsewhere; I12.9 Hypertensive chronic kidney disease with stage 1 through stage 4 chronic kidney disease, or unspecified chronic kidney disease; E11.22 Type 2 diabetes mellitus with diabetic chronic kidney disease; E11.65 Type 2 diabetes mellitus with hyperglycemia; N18.4 Chronic kidney disease, stage 4 (severe); N17.0 Acute kidney failure with tubular necrosis; E11.40 Type 2 diabetes mellitus with diabetic neuropathy, unspecified; D63.1 Anemia in chronic kidney disease; E78.5 Hyperlipidemia, unspecified; I25.10 Atherosclerotic heart disease of native coronary artery without angina pectoris; Z95.5 Presence of coronary angioplasty implant and graft; I25.2 Old myocardial infarction; Z23 Encounter for immunization
CPT/HCPCS: 36415; 71045; 76770; 80048; 80053; 80069; 80074; 80076; 80202; 81003; 81015; 82570; 82607; 82652; 82728; 82746; 82947; 83036; 83520; 83540; 83605; 83735; 83970; 84156; 84165; 84443; 84466; 84484; 84550; 85025; 85044; 85379; 85652; 86021; 86038; 86160; 86225; 86317; 86430; 86704; 86706; 87040; 87070; 87077; 87086; 87088; 87186; 87205; 87389; 87522; 90471; 90715; 93971; 96361; 96374; 96375; 99284; J0360; J0692; J1650; J1815; J2270; J2405; J2916; J7030; J7040

== ENCOUNTER 2019-11-19 15:17 | Inpatient (IN) | payer OTHER ==
--- OUTSIDE RECORDS SUMMARY | 2019-11-19 15:31 | XMS REPORT | Summary of Care ---
:1950 Author Organization [facility] Address [address] [place] [id number] Care Team Providers Name Role Phone Pcp, Patient Does Not Have A Primary Care Provider Reason for Referral (Routine) Status Reason Specialty Diagnoses / Referred By Referred To Procedures Contact Contact New Request IM-NEPHROLOGY Diagnoses Acute pancreatitis without infection or necrosis, unspecified pancreatitis type Type 2 diabetes mellitus with stage 4 chronic kidney disease, with long-term current use of insulin Ehsan Echavarria Procedures Discharge Follow-Up: Specialty Service IM-NEPHROLOGY; 1 Week MD Maya [address] [place] [phone] (Routine) Status Reason Specialty Diagnoses / Procedures Referred By Referred To Contact Contact New Request Diagnoses Acute pancreatitis without infection or necrosis, unspecified pancreatitis type Ehsan Echavarria Pcp, Patient Does Procedures Discharge Follow-up: PCP PATIENT DOES NOT HAVE A PCP; 3-5 Days MD Maya Not Have A [address] [place] [phone] Phone: Radiology Services (HELEN) Status Reason Specialty Diagnoses / Referred By Referred To Procedures Contact Contact New Request Diagnostic Diagnoses Other hypervolemia Ehsan Echavarria Radiology Procedures XR CHEST 1 VW MD Maya [address] [place] [phone] Radiology Services (HELEN) Status Reason Specialty Diagnoses / Referred By Referred To Procedures Contact Contact New Request Diagnostic Diagnoses Other hypervolemia Ehsan Echavarria Radiology Procedures XR CHEST 1 VW MD Maya [address] [place] [phone] (Routine) Status Reason Specialty Diagnoses / Referred By Referred To Procedures Contact Contact New Request Procedures Ehsan Echavarria, UNILATERAL VENOUS DUPLEX LOWER [address] EXTREMITY BY [place], [place] [facility] [phone] (Routine) Status Reason Specialty Diagnoses / Referred By Referred To Procedures Contact Contact New Request Procedures Ehsan Echavarria, UNILATERAL VENOUS DUPLEX LOWER [address] [place] [facility] [phone] Radiology Services (Routine) Status Reason Specialty Diagnoses / Referred By Referred To Procedures Contact Contact New Request Diagnostic Diagnoses Pain of upper abdomen Ehsan Echavarria Radiology Procedures US ABDOMEN EZRA Trejo MD [address] [place] [phone] Radiology Services (Routine) Status Reason Specialty Diagnoses / Referred By Referred To Procedures Contact Contact New Request Diagnostic Diagnoses Pain of upper abdomen Ehsan Echavarria Radiology Procedures US ABDOMEN EZRA Trejo MD [address] [place] [phone] MRI/CAT Scan (STAT) Status Reason Specialty Diagnoses / Referred By Referred To Procedures Contact Contact New Request Diagnostic Diagnoses Pain of upper abdomen JermaineJameel-Sotero Radiology Procedures CT ABDOMEN PELVIS WO CONTRAST CT ABDOMEN PELVIS W CONTRAST [address] [facility] [id number] [place] [address] Reason for Visit Reason Comments Abdominal Pain Edema Auth/Cert Status Reason Specialty Diagnoses / Referred By Referred To Procedures Contact Contact Emergency Medicine Ed-Emergency Dept [address] [place] [phone] Encounter Details Date Type Department Care Team Description 05/03/2019 - Hospital Encounter [facility] (Donnie Olson [address] [facility] [id number] [place], [place] [phone] Acute pancreatitis 05/08/2019 11C) Ehsan Echavarria MD [address] [place] [phone] [address] [place], [place] [phone] Allergies No Known Allergiesdocumented as of this encounter (statuses as of 05/08/2019) Medications Medication Sig Dispensed Refills Start End Date Status Date lisinopril 2.5 mg Take 1 tablet 30 tablet 0 Active tabletIndications: by mouth 9 Essential hypertension daily. atorvastatin 40 mg Take 1 tablet 30 tablet 3 Active tabletIndications: by mouth at 9 Hyperlipidemia, bedtime. unspecified hyperlipidemia type gabapentin 300 mg Take 1 90 capsule 2 Active capsuleIndications: capsule by 9 Peripheral mouth 3 polyneuropathy (three) times daily. metoprolol tartrate 25 Take 0.5 15 tablet 3 Active mg tabletIndications: tablets by 9 Essential hypertension mouth 2 (two) times daily. SERTraline 100 mg Take 1.5 45 tablet 1 Active tabletIndications: tablets by 9 Depression, unspecified mouth daily. depression type aspirin 81 mg chewable Take 1 tablet 30 tablet 11 Active tabletIndications: by mouth 9 Hyperlipidemia, daily. unspecified hyperlipidemia type isosorbide mononitrate Take 1 tablet 30 tablet 2 Active 30 mg 24 hr by mouth 9 tabletIndications: daily. Atypical chest pain nitroglycerin 0.[address] 1 30 tablet 0 Active sublingual tablet under 9 tabletIndications: the tongue Chest pain due to every 5 myocardial ischemia, (five) unspecified ischemic minutes as chest pain type needed for Chest pain. cephALEXin 500 mg Take 1 6 capsule 0 05/10/20 Active capsuleIndications: capsule by 9 19 Cellulitis of left mouth every lower extremity 12 (twelve) hours for 3 days. insulin NPH and regular inject 8 1 Vial 0 Active human 70-30 100 unit/mL Units under 9 (70-30) the skin 2 injectionIndications: (two) times Type 2 diabetes daily before mellitus with stage 4 breakfast and chronic kidney disease, dinner. with long-term current use of insulin amLODIPine 10 mg Take 1 tablet 30 tablet 3 Active tabletIndications: by mouth 9 Essential hypertension daily. aspirin 81 mg chewable Take 1 tablet 30 tablet 11 05/07/20 Discontinued tablet by mouth 8 19 daily. traMADOL 50 mg tablet Take 1 tablet 20 tablet 0 05/07/20 Discontinued by mouth 8 19 every 6 (six) hours as needed (pain). atorvastatin 40 mg Take 1 tablet 0 05/07/20 Discontinued tablet by mouth at 8 19 bedtime. [address] 0[address] 1 0 05/07/20 Discontinued sublingual tablet tablet under 8 19 the tongue every 5 (five) minutes as needed for Chest pain. insulin 70/30 100 inject 15 1 Vial 0 05/07/20 Discontinued unit/mL (70-30) Units under 8 19 injection the skin 2 (two) times daily before breakfast and dinner. metoprolol tartrate 25 Take 0.5 15 tablet 3 05/07/20 Discontinued mg tablet tablets by 19 mouth 2 (two) times daily. metFORMIN 500 mg tablet Take 1 tablet 30 tablet 11 05/07/20 Discontinued by mouth 8 19 daily with breakfast. lisinopril 20 mg tablet Take 1 tablet 30 tablet 3 05/07/20 Discontinued by mouth 8 19 daily. SERTraline 100 mg Take 1.5 45 tablet 1 05/07/20 Discontinued tablet tablets by 8 19 mouth daily. hydroCHLOROthiazide 25 Take 1 tablet 30 tablet 3 05/07/20 Discontinued mg tablet by mouth 8 19 daily. isosorbide mononitrate Take 1 tablet 30 tablet 2 05/07/20 Discontinued 30 mg 24 hr tablet by mouth 8 19 daily. gabapentin 300 mg Take 1 90 capsule 2 05/07/20 Discontinued capsule capsule by 8 19 mouth 3 (three) times daily. hydroCHLOROthiazide 25 Take 1 tablet 30 tablet 3 05/07/20 Discontinued mg tabletIndications: by mouth 9 19 Essential hypertension daily. documented as of this encounter (statuses as of 05/08/2019) Active Problems Problem Noted Date Acute kidney injury 05/04/2019 Acute pancreatitis 05/03/2019 Suicide attempt by multiple drug overdose 10/14/2017 Unstable angina 10/13/2017 Chest pain 10/02/2017 Myocardial infarction documented as of this encounter (statuses as of 05/08/2019) Immunizations Name Administration Dates Next Due Pneumococcal 13 Conjugate, PCV13 (Prevnar 13) 05/07/2019 () documented as of this encounter Social History Tobacco Use Types Packs/Day Years Used Date Never Smoker Smokeless Tobacco: Never Used Alcohol Use Drinks/Week oz/Week Comments No Sex Assigned at Date Recorded Not on file Job Start Date Occupation Industry Not on file Not on file Not on file Travel History Travel Start Travel End No recent travel history available. documented as of this encounter Last Filed Vital Signs Vital Sign Reading Time Taken Comments Blood Pressure 169/79 05/08/2019 8:00 AM CDT Pulse 57 05/08/2019 8:00 AM CDT Temperature 36.5 C (97.7 F) 05/08/2019 8:00 AM CDT Respiratory Rate 18 05/08/2019 8:00 AM CDT Oxygen Saturation 93% 05/08/2019 8:00 AM CDT Inhaled Oxygen Concentration - - Weight 93.5 kg (206 lb 1.6 oz) 05/07/2019 4:06 AM CDT Height - - Body Mass Index 28.75 10/13/2017 9:29 PM EDITORIAL MANAGER documented in this encounter Progress Notes Robbin Schaefer MD - 05/07/2019 8:31 PM CDTBrief Night Float Progress Note: Mr. Izquierdo is medically clear for discharge, he is complaining of headache and stating he is dizzy to drive. 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 He is not orthostatic and he is noted to to refuse medications throughout hospital stay. Robbin Schaefer MD Internal Medicine PGY-3 [place] Team [phone] Pager: [phone] signed by Robbin Schaefer MD at 2018 8:33 PM CDIdania Gomez - 05/07/2019 12:15 PM CDT Medical Nutrition Therapy- Progress Note: Current Medical Status: I have reviewed Dr. Trevizo's progress note dated 05/06/2019 and additional EPIC documentation for anunderstanding of the patient's current medical condition and plan of care. Pertinent Medications: I have reviewed the medications currently ordered in the EMR located under the medications andMAR tabs. Current medications include: Atorvastatin 40 mg QHS, Gabapentin 300 mg TID, Heparin injection 5,000 units Q12H, Hydrochlorothiazide 25 mg daily, Humulin N 8 units QAM+HS, Humulin R injection 0.13 units/kg/day x 86.2 kg BID AC, Metoprolol tartrate 12.5 mg BID, Sliding Scale Novolog TID meals +HS. Lab and Medical Test Results: 05/06/2019 12:15 05/06/2019 16:28 05/06/2019 21:11 05/07/2019 08:02 05/07/2019 12:14 POCT GLU 262 (H) 204 (H) 189 (H) 143 (H) 270 (H) 05/06/2019 05:08 WBC x10^3 8.31 RBC x10^6 3.74 (L) HGB 11.4 (L) HCT 34.3 (L) MCV 91.7 MCH 30.5 MCHC 33.2 RDW-SD 42.4 RDW-CV 12.7 PLT x10^3 212 MPV 10.9 NRBC /100 WBC 0.0 NRBC x10^3 <0.01 05/03/2019 18:43 HGB A1C 10.7 (H) Nutrition Assessment: Age: [age] year old Sex: Male Ht: 1.803 m / 5'11" Current Wt: 93.5 kg/ 206 lb BMI: 28.76 kg/m (Normal for age) Current Dietary Order(s): GI Soft ([place]), Low Residue Diet; Texture: Regular Nutrition & Diet History: Visited patient this afternoon. Patient was upset about being on a GI soft bland diet. Patient stated never receiving diabetic education. Began to discuss what foods contain carbohydrates and why carb counting helps control blood glucose, however patient stated "if i take that home I'll use it as toilet paper " referring to educational handout. Patient also stated "I'm gonna eat what I want when I want". Due to patient not wanting any diabetic education I did not take anymore of his time. Nutrition Diagnosis: Not ready for diet/lifestyle change related to unwilling or disinterested in learning/applying information as evidenced by hostility and resistance to change. Nutrition Plan of Care: Intervention(s): 1. Recommend 2000 Calorie Diabetic Consistent Carbohydrate Diet Goal(s): 1. The pt's documented intake is no less than 50% of provided meals D/C Planning: Diabetic Consistent Carbohydrate Diet Nutrition Monitoring and Evaluation: A registered dietitian will f/u as indicated to report nutrition related information and to revise the recommended nutrition intervention(s); please call with questions Idania Dumont Crm Technical Lead RD Office: [id number] Associated attestation - Kaylynn Guillermo RD - 05/07/2019 2:17 PM CDTI agree with the nutrition assessment and recommendations for this patient seen by Idania Dumont Crm Technical Lead on 05.07.2019. Kaylynn Guillermo RD, LD Clinical Dietitian Office [phone] Estrellita Roa MD - 05/07/2019 6:23 AM CDTAlperin Team Progress Note Date of Service: 05/07/19 Days Since Admission: 3 Chief Complaint: Abdominal Pain Diagnosis: Pancreatitis 24-HOUR EVENTS: Orthostatic + per PT note, given 1L bolus Repeat negative SUBJECTIVE: Mr. Izquierdo feels better this AM. Notes abdominal pain and n/v improved and BMs regular. OBJECTIVE: Vitals: Temp: [36.3 C (97.4 F)-36.8 C (98.3 F)] Heart Rate (monitor): [55-65] Pulse: [55-67] Resp: [18-20] BP: (136-211)/(73-90) MAP (mmHg): [87-119] Intake/Output: No intake or output data in the 24 hours ending 05/08/19 0623 Physical Exam: General: awake, alert, NAD HEENT: Normocephalic, atraumatic, EOMI Cardiac: RRR, no m/r/g Respiratory: CTAB G/I: soft, non-distended, mild tenderness in epigastric region but significantly improved from prior Extremities: No pedal edema Skin: abrasion on LLE with improvement in erythema Neuro: AAOx3, no focal neurologic deficits LABS/IMAGING - reviewed ASSESSMENT/PLAN Matt Izquierdo is a 69 year old male admitted to the hospital with Nausea & Vomiting- resolved RLQ/RUQ Abdominal Pain - resolved Acute pancreatitis - resolved Assessment: Patient with improvement in his symptoms, tolerating PO and ready for d/c. However, later in the evening evidently began stating he had VARGAS and dizziness and stated he was unable to drive and refused taxi voucher. Plan: - Advance diet as tolerated - f/u BCx - [place] for pain - Zofran q6hprn LLE Cellulitis - improving - c/w Keflex (05/04 -05/10) CKD 4 Suspect NOHELIA resolved as Cr has been stable around 2.5 Plan: - Renally dose meds, avoid nephrotoxic agents T2DM (A1c 10.7), Hyperglycemia- improved Neuropathy Plan: - NPH 8u BID - Regular 5.6 u BID - Aspart SSI - gabapentin; renally dosed CAD s/p PCI at OSH 2009 HTN | HLD VARGAS 2/2 HTN- resolved PRANAV not on CPAP As was orthostatic, d/bao HCTZ and started amlodipine instead Plan: - lisinopril to restart at low dose on d/c - Atorvastatin - c/w amlodipine - c/w Lopressor + Imdur MDD Anxiety -c/w Zoloft Diet: GI soft Pain: Improved Morphine Prophylaxis: DVT- heparin Stress Ulcer: no indication for prophylaxis Code Status: addressed: DNR/DNI Estrellita Roa M.D. Internal Medicine PGY3 [place] Team Doctor # [phone] Pager # END OF DAILY PROGRESS NOTE HOSPITAL COURSE Matt Izquierdo is a 69 year old male with PMH CAD s/p PCI at OSH 2009, HFpEF 50-55 09/2017, DMII (A1C 8.5 10/2017), HTN, PRANAV not on CPAP admitted with pancreatitis of unknown etiology, uncontrolled DM2, hypertensive urgency. Complete abdominal US without evidence of gallstones but did note hepatic steatosis, kidneys without evidence of renal disease. Treating supportively, infection w/u. CURRENT MEDICATIONS - reviewed. Associated attestation - Ehsan Echavarria MD - 05/08/2019 8:23 AM CDTI personally examined the patient on 05/07/19, and I actively participated in the decision-making process. I agree with Dr. Roa's resident note. Abdominal pain and nausea have improved, but patient has developed significant hypertension with systolic blood pressure >200 and associated dizziness. Ehsan Echavarria MD Division of General Internal Monotype Mechanic Dereck Robles MD - 05/06/2019 7:34 AM CDT [place] Team Progress Note Date of Service: 05/06/2019 14:00 Days Since Admission: 2 Chief Complaint: Abdominal Pain Diagnosis: Pancreatitis 24-HOUR EVENTS: No acute events SUBJECTIVE: Mr. Izquierdo continues to not feel well this morning. Has RLQ abdominal pain still. Vomited 1x yesterday and feels nauseated. States he ate ~60% of each meal. No fevers or chills. OBJECTIVE: Vitals: Temp: [36.4 C (97.5 F)-36.7 C (98.1 F)] Pulse: [58-100] Resp: [18] BP: (144-153)/(72-90) Intake/Output: Intake/Output Summary (Last 24 hours) at 05/06/2019 1400 Last data filed at 05/06/2019 1200 Gross per 24 hour Intake 474 ml Output 350 ml Net 124 ml Physical Exam: General: awake, alert, NAD HEENT: Normocephalic, atraumatic, EOMI Cardiac: RRR, no m/r/g Respiratory: CTAB G/I: soft, non-distended, severe tenderness to palpation of RLQ and RUQ w/o rebound or guarding Extremities: No pedal edema Skin: abrasion on LLE with improvement in erythema Neuro: AAOx3, no focal neurologic deficits LABS/IMAGING - reviewed ASSESSMENT/PLAN Matt Izquierdo is a 69 year old male admitted to the hospital with Nausea & Vomiting RLQ/RUQ Abdominal Pain - persistent Acute pancreatitis - resolved Assessment: Patient does not have suprapubic pain, rather he has RLQ/RUQ Abdominal w/o peritoneal signs. No clear source of pain (has hx of appendix removal). Will f/u BCx & slowly advance diet and possibly discharge tomorrow. Plan: - Advance diet as tolerated - c/w IVF for now - f/u BCx - [place] for pain - Zofran q6hprn - Encouraged patient to ask for this LLE Cellulitis - improving - c/w Keflex (05/04 -) NOHELIA on CKD vs CKD progression Assessment: Cr mildly worsened from yesterday. Plan: - Renally dose meds, avoid nephrotoxic agents - Monitor Cr & UOP T2DM (A1c 10.7), Hyperglycemia Neuropathy Assessment: May have had episode of relative hypoglycemia this AM. Patient refusing insulin, 24 BG 110-250, TDD 10.6 units, encouraged patient on need for insulin Plan: - NPH 8u BID - Regular 5.6 u BID - Aspart SSI - gabapentin; renally dosed CAD s/p PCI at OSH 2009 HTN | HLD VARGAS 2/2 HTN- resolved PRANAV not on CPAP Assessment: Mildly HTN 140-150s/70-80s - will re-introduce home HCTZ Plan: - HOLD lasix, lisinopril- will reintroduce slowly as BP tolerates - Atorvastatin - Start HCTZ - c/w Lopressor + Imdur MDD Anxiety -c/w Zoloft Diet: GI soft Pain: Improved Morphine Prophylaxis: DVT- heparin Stress Ulcer: no indication for prophylaxis Code Status: addressed: DNR/DNI Dereck Trevizo M.D. Department of Internal Medicine PGY-3, [facility] Team Doctor's Number: [phone] Pager: [phone] END OF DAILY PROGRESS NOTE HOSPITAL COURSE Matt Izquierdo is a 69 year old male with PMH CAD s/p PCI at OSH 2009, HFpEF 50-55 09/2017, DMII (A1C 8.5 10/2017), HTN, PRANAV not on CPAP admitted with pancreatitis of unknown etiology, uncontrolled DM2, hypertensive urgency. Complete abdominal US without evidence of gallstones but did note hepatic steatosis, kidneys without evidence of renal disease. Treating supportively, infection w/u. CURRENT MEDICATIONS - reviewed. Associated attestation - Ehsan Echavarria MD - 05/07/2019 2:18 PM CDTI personally examined the patient on 05/06/19, and I actively participated in the decision-making process. I agree with Dr. Trevizo's resident note. Ehsan Echavarria MD Division of General Internal Monotype Mechanic Estrellita Reed MD - 05/05/2019 10:11 AM CDT [facility] Team Progress Note Date of Service: 05/05/2019 10:11 Days Since Admission: 1 Chief Complaint: Abdominal Pain Diagnosis: Pancreatitis 24-HOUR EVENTS: Episode of emesis last night Started on keflex for cellulitis of LLE Duplex w/o evidence of DVT SUBJECTIVE: Mr. Izquierdo was not feeling well this morning. He felt overheated and began having chills. He felt his BG was too low and felt that it was going to get lower. Was unable to eat banana at bedside but said he would probably be able to have juice. OBJECTIVE: Vitals: Temp: [35.9 C (96.7 F)-36.4 C (97.6 F)] Pulse: [56-62] Resp: [16-18] BP: (96-138)/(55-76) MAP (mmHg): [89] Vitals: 05/03/19 1801 05/05/19 0009 05/05/19 0401 05/05/19 0738 BP: 96/55 120/70 137/66 Pulse: 56 56 61 Resp: 18 18 16 Temp: 36.4 C (97.6 F) 35.9 C (96.7 F) 36.3 C (97.3 F) TempSrc: Oral Axillary Oral SpO2: 99% 97% 99% Weight: 86.2 kg (190 lb) 92.1 kg (203 lb) Intake/Output: Intake/Output Summary (Last 24 hours) at 05/05/2019 1011 Last data filed at 05/05/2019 0829 Gross per 24 hour Intake 354 ml Output 200 ml Net 154 ml Physical Exam: General: Awake, Alert, ill appearing HEENT: Normocephalic, atraumatic, EOMI Cardiac: RRR Respiratory: CTAB G/I: Normoactive bowel sounds, soft, non-distended, severe tenderness to palpation of RLQ and RUQ Extremities: no clubbing, no cyanosis, trace bilateral pedal edema Skin: abrasion on LLE with improvement in erythema Neuro: AAOx3, no focal neurologic deficits LABS/IMAGING - reviewed ASSESSMENT/PLAN Matt Izquierdo is a 69 year old male admitted to the hospital with Acute pancreatitis Assessment: Seemingly idiopathic pancreatitis. No gallstones seen on US. Clinically appear improvingas he was able to tolerate breakfast. Plan: -advance diet as tolerated -c/w IVF for now -[place] for pain -zofran q6hprn NOHELIA on CKD vs CKD progression Assessment: Cr appears to be improving so likely pre-renal component. PTH is elevated which may be seen with chronic renal disease Plan: -monitor Cr T2DM (A1c 10.7), Hyperglycemia Neuropathy Assessment: May have had episode of relative hypoglycemia this AM. Will adjust insulin Plan: - decrease NPH to 8u BID, c/w regular and SSI - gabapentin; renally dosed CAD s/p PCI at OSH 2009 VARGAS 2/2 HTN- resolved PRANAV not on CPAP Assessment: HTN improved, will continue holding meds as below Plan: -HOLD lasix/ HCTZ/ lisinopril- will reintroduce slowly as BP tolerates -atorvastatin - lopressor + imdur MDD Anxiety -c/w zoloft Diet: GI soft Pain: Improved Morphine Prophylaxis: DVT- heparin Stress Ulcer: no indication for prophylaxis Code Status: addressed: DNR/DNI Estrellita Roa M.D. Internal Medicine PGY3 [place] Team Doctor # [phone] Pager # END OF DAILY PROGRESS NOTE HOSPITAL COURSE Matt Izquierdo is a 69 year old male with PMH CAD s/p PCI at OSH 2009, HFpEF 50-55 09/2017, DMII (A1C 8.5 10/2017), HTN, PRANAV not on CPAP admitted with pancreatitis of unknown etiology, uncontrolled DM2, hypertensive urgency. Complete abdominal US without evidence of gallstones but did note hepatic steatosis, kidneys without evidence of renal disease. Treating supportively, infection w/u. CURRENT MEDICATIONS - reviewed. Current Facility-Administered Medications Medication Dose Route Frequency Last Rate Last Dose insulin NPH (HUMULIN N) injection 8 Units 8 Units Subcutaneous QAM+HS cephALEXin (KEFLEX) capsule 500 mg 500 mg Oral Q12H 500 mg at 05/05/19 08 dextrose 10% (D10W) bolus infusion 250 mL 250 mL IV Infusion PRN - SEE INSTRUCTIONS gabapentin (NEURONTIN) capsule 200 mg 200 mg Oral ONCE NOW Stopped at 2329 glucagon (GLUCAGEN DIAGNOSTIC KIT) injection 1 mg 1 mg Intramuscular PRN insulin regular human (HUMULIN R) injection 5.6 Units 0.13 Units/kg/day Subcutaneous BIDAC 5.6 Units at 05/04/19 175 NaCl 0.9% (NS) IV infusion 1,000 mL 1,000 mL Intravenous CONTINUOUS 100 mL/ hr at 05/05/19 08 Sliding Scale Insulin - Aspart (NOVOLOG) + Fsbg Testing Subcutaneous TID MEALS+HS Stopped at05/04/192148 acetaminophen (TYLENOL) tablet 650 mg 650 mg Oral Q6HPRN 650 mg at 2233 aspirin chewable tablet 81 mg 81 mg Oral DAILY 81 mg at 05/05/19823 atorvastatin (LIPITOR) tablet 40 mg 40 mg Oral QHS 40 mg at 05/04/192148 gabapentin (NEURONTIN) capsule 300 mg 300 mg Oral TID 300 mg at 05/04/192148 heparin injection 5,000 Units 5,000 Units Subcutaneous Q12H 5,000 Units at 05/04/19 215 isosorbide mononitrate (IMDUR) 24 hr tablet 30 mg 30 mg Oral DAILY 30 mg at 05/05/19 08 metoprolol tartrate (LOPRESSOR) half tablet 12.5 mg 12.5 mg Oral BID 12.5 mg at 05/05/19 0824 morpHINE injection 4 mg 4 mg Slow IV Push Q4HPRN 4 mg at 05/05/19 08 nitroglycerin (NITROSTAT) sublingual tablet 0.4 mg 0.4 mg Sublingual Q5MIN PRN ondansetron (ZOFRAN (PF)) injection 4 mg 4 mg Slow IV Push Q6HPRN 4 mg at 05/04/19 2200 SERTraline (ZOLOFT) tablet 150 mg 150 mg Oral DAILY 150 mg at 05/05/19 0824 Associated attestation - Ehsan Echavarria MD - 05/07/2019 2:18 PM CDTI personally examined the patient on 05/05/19, and I actively participated in the decision-making process. I agree with Dr. Roa's resident note. Ehsan Echavarria MD Division of General Internal Monotype Mechanic Daniel Isaac MD - 05/04/2019 10:24 PM CDTPt couldn't tolerate foods and started throwing up. Fluid restartedElectronically signed by Daniel Buckner MD at 2018 10:24 PM Tracy Hoffman SW - 05/04/2019 11:54 AM CDTCare Management Social Functional Assessment Patient Name: Matt Izquierdo Age: [age] year old Sex: male Patient's Previous Admission Date at [facility]: 10/13/2017 Current diagnosis and co-morbidities: acute pancreatitis Readmission Questions: Was patient discharged from any acute care hospital within the last 30 days: No Social Functional Assessment: Primary language spoken/preferred: [place] Mental Status: Alert & Oriented to Person,Place & Time Information given by: Self Patient's support system: None Primary Internet Researcher: Self MPOA: No Living Arrangement: Mobile Home Address of living arrangement : "[facility]" at [address] in [place], [place] Persons living in home: Self Barriers to returning home: None Baseline functional status- ambulation: Independent Functional status-baseline personal care: Independent Baseline functional status- driving: Independent Baseline functional status- grocery shopping: Independent Functional status-baseline housekeeping: Independent Functional status-baseline meal prep: Independent Current functional status same as prior: Yes Do you have a PCP?: No Refered to: Carlie Edgar Indigent Home Health Care Agency: No Provider Services: No DME Company: No Equipment: None Hemodialysis: No Community resources utilized: [facility] Resources Fact Sheet;SSA/SSI/Medicaid Funding Resources: Self Pay(Medicaid SSI pending) Prescription coverage plan: Self Pay Pharmacy where meds are filled: (local [facility] informed patient to download Good Rx harish onto hissmartphone at bedside, pt expressed understanding) Anticipated services prior to disharge: Continue Medical Eval Expected mode of discharge transportation: Personal vehicle Additional info required for discharge planning: Pending medical evaluation;No needs identified Recommended discharge plan: Home Any issues or concerns with obtaining/affording your medications at home: no. 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 Describe: no issues. SFA Complete: Social Functional Assessment complete: Yes Alcohol Use Screening (AUDIT-C) How often do you have a drink containing alcohol?: Never(Patient denied tobacco , alcohol, and illicit drug use) SCORE: 0 Role of Care Management explained. Aditi Urrutia, [facility] [phone] (personal cell #/not for patient use) [phone] [place] [phone] Care Mgmt Dept Estrellita Piedra MD - 05/04/2019 8:15 AM CDT Michele Team Progress Note Date of Service: 05/04/2019 08:15 Days Since Admission: 0 Chief Complaint: Abdominal Pain Diagnosis: Pancreatitis 24-HOUR EVENTS: Admitted to michele SUBJECTIVE: Mr. Izquierdo is hungry this morning. He told me he has not eaten since morning, a hamburger which he was able to keep down. He had nausea and dry heaves earlier this morning but still has a strong appetite. His says his abdominal pain is 8/10 in severity unchanged from yesterday only improved with morphine. He says his neuropathy in his feet is also hurting him this morning. Denies any fever, chills, CP, SOB. OBJECTIVE: Vitals: Temp: [-13.7 C (7.4 F)-36.6 C (97.9 F)] Heart Rate (monitor): [61-73] Pulse: [61-79] Resp: [12-18] BP: (111-211)/(55-116) MAP (mmHg): [94-146] Vitals: 05/03/19 2300 05/04/19 0015 05/04/19 0400 05/04/19 0748 BP: 133/86 (!) 141/79 111/55 126/57 Pulse: 66 66 65 65 Resp: 18 18 Temp: 36.2 C (97.2 F) 36.6 C (97.8 F) (!) -13.7 C (7.4 F) TempSrc: Oral Oral Oral SpO2: 97% 100% 96% 99% Weight: Intake/Output: Intake/Output Summary (Last 24 hours) at 05/04/2019 08 Last data filed at 05/04/2019 0516 Gross per 24 hour Intake Output 2140 ml Net -2140 ml Physical Exam: General: Awake, Alert, ill appearing HEENT: Normocephalic, atraumatic, EOMI, PEERL Cardiac: RRR, S1 and S2 heard, No m/r/g; distal pulses 2+ throughout Respiratory: CTAB G/I: Normoactive bowel sounds, soft, non-distended, severe tenderness to palpation of RLQ Extremities: no clubbing, no cyanosis, mild bilateral pedal edema Skin: warm, dry, no rashes, no lesions Neuro: AAOx3, no focal neurologic deficits Resident's Addendum I agree with above Physical Exam by MS4 Boby Mullins with the following additions : General: alert and oriented x 4 (person, place, date/time and situation); no apparent distress Lungs: clear to auscultation bilaterally Cardio: regular rate and rhythm Abdomen: soft; tender to palpation in RLQ, epigastric, and RUQ; non-distended; normoactive bowel sounds Extremities: trace BLE edema Skin: no rashes Neuro: no focal deficits. LABS/IMAGING - reviewed ASSESSMENT/PLAN Matt Izquierdo is a 69 year old male admitted to the hospital with Acute pancreatitis Assessment: Etiology of pancreatitis unclear at this time, CT scan without any clear GB or pancreas abnormalities and no RLQ abnormalities to indicate etiology of abdominal pain though this is limited by lack of contrast 2/2 NOHELIA vs progression of CKD. Plan: -complete abdominal US to evaluate for possible gallstones -check HCV, HIV -advance diet as tolerated -c/w IVF for now -morphine q4hprn -zofran q6hprn NOHELIA on CKD vs CKD progression Assessment: Unclear if patient indeed with NOHELIA vs progression of CKD or both. His DM has been uncontrolled for some time and he has been noncompliant with most medications so would not be surprising for CKD to progress. He has some mild metabolic acidosis and azotemia at this time, Ca this AM mildly low. He has had poor PO intake however so a pre-renal insult is possible. Will monitor for now. Plan: -complete abdominal US -check phos -monitor Cr T2DM (A1c 10.7), Hyperglycemia Neuropathy Assessment: Poorly controlled due to financial restrictions. Will adjust regimen inpatient. Plan: - SSI+ DMII order set LA+SA, questionable compliance with home meds - gabapentin; renally dosed - consult food and nutrition CAD s/p PCI at OSH 2009 VARGAS 2/2 HTN PRANAV not on CPAP Assessment: HTN improved Plan: -HOLD lasix/ HCTZ/ lisinopril- will reintroduce slowly as BP tolerates -atorvastatin - lopressor + imdur MDD Anxiety -c/w zoloft Diet: GI soft Pain: Improved Morphine Prophylaxis: DVT- heparin Stress Ulcer: no indication for prophylaxis Code Status: addressed: DNR/DNI Ze Mullins MS4 Resident's Addendum I agree with the above Assessment and Plan by MS4 Boby Mullins with changes made above. Estrellita Roa M.D. Internal Medicine PGY3 [place] Team Doctor # [phone] Pager # END OF DAILY PROGRESS NOTE HOSPITAL COURSE Matt Izquierdo is a 69 year old male with PMH CAD s/p PCI at OSH 2009, HFpEF 50-55 09/2017, DMII (A1C 8.5 10/2017), HTN, PRANAV not on CPAP admitted with pancreatitis of unknown etiology, uncontrolled DM2, hypertensive urgency. CURRENT MEDICATIONS - reviewed. Current Facility-Administered Medications Medication Dose Route Frequency Last Rate Last Dose dextrose 10% (D10W) bolus infusion 250 mL 250 mL IV Infusion PRN - SEE INSTRUCTIONS glucagon (GLUCAGEN DIAGNOSTIC KIT) injection 1 mg 1 mg Intramuscular PRN insulin NPH (HUMULIN N) injection 10 Units 0.24 Units/kg/day Subcutaneous QAM+HS insulin regular human (HUMULIN R) injection 5.6 Units 0.13 Units/kg/day Subcutaneous BIDAC potassium acetate 40 mEq in NaCl 0.9% (NS) piggyback 40 mEq IV Piggyback ONCE Sliding Scale Insulin - Aspart (NOVOLOG) + Fsbg Testing Subcutaneous TID MEALS+HS acetaminophen (TYLENOL) tablet 650 mg 650 mg Oral Q6HPRN aspirin chewable tablet 81 mg 81 mg Oral DAILY atorvastatin (LIPITOR) tablet 40 mg 40 mg Oral QHS gabapentin (NEURONTIN) capsule 300 mg 300 mg Oral TID heparin injection 5,000 Units 5,000 Units Subcutaneous Q12H isosorbide mononitrate (IMDUR) 24 hr tablet 30 mg 30 mg Oral DAILY metoprolol tartrate (LOPRESSOR) half tablet 12.5 mg 12.5 mg Oral BID morpHINE injection 4 mg 4 mg Slow IV Push Q4HPRN NaCl 0.9% (NS) IV infusion 1,000 mL 1,000 mL Intravenous CONTINUOUS 100 mL/ hr at 05/04/19 0125 1,000 mL at 05/04/19 0125 nitroglycerin (NITROSTAT) sublingual tablet 0.4 mg 0.4 mg Sublingual Q5MIN PRN ondansetron (ZOFRAN (PF)) injection 4 mg 4 mg Slow IV Push Q6HPRN SERTraline (ZOLOFT) tablet 150 mg 150 mg Oral DAILY Associated attestation - Ehsan Echavarria MD - 05/07/2019 2:17 PM CDTI personally examined the patient on 05/04/19, and I actively participated in the decision-making process. I agree with Dr. Roa's resident note. Ehsan Echavarria MD Division of General Internal Monotype Mechanic Professordocumented in this encounter Plan of Treatment Name Type Priority Associated Diagnoses Date/Time BLOOD CULTURE SCREEN LAB STAT 05/05/2019 10:59 AM CDT BLOOD CULTURE SCREEN LAB STAT 05/05/2019 10:59 AM CDT Health Maintenance Due Date Last Done Comments DTaP,Tdap,and Td Vaccines (1 - Tdap) 1970 COLONOSCOPY 2001 Zoster Recombinant Vaccine (SHINGRIX) (1 of 2) 2001 Medicare Wellness Visit 02/16/2016 PNEUMOCOCCAL VACCINES 65+ (1 of 2 - PCV13) 02/16/2016 INFLUENZA VACCINE (#1) 2019 HEPATITIS C (HCV) SCREEN Completed 05/03/2019 documented as of this encounter Procedures Procedure Name Priority Date/Time Associated Diagnosis Comments POCT GLUCOSE Routine 05/07/2019 12:14 Results for this (AUTOMATED) PM CDT procedure are in the results section. POCT GLUCOSE Routine 05/07/2019 8:02 Results for this (AUTOMATED) AM CDT procedure are in the results section. POCT GLUCOSE Routine 05/06/2019 9:11 Results for this (AUTOMATED) PM CDT procedure are in the results section. POCT GLUCOSE Routine 05/06/2019 4:28 Results for this (AUTOMATED) PM CDT procedure are in the results section. POCT GLUCOSE Routine 05/06/2019 12:15 Results for this (AUTOMATED) PM CDT procedure are in the results section. POCT GLUCOSE Routine 05/06/2019 8:11 Results for this (AUTOMATED) AM CDT procedure are in the results section. CBC WITH DIFFERENTIAL Routine 05/06/2019 5:08 Results for this AM CDT procedure are in the results section. CBC WITH DIFF Routine 05/06/2019 5:08 Results for this AM CDT procedure are in the results section. BASIC METABOLIC PANEL Routine 05/06/2019 5:08 Results for this (NA, K, CL, CO2, AM CDT procedure are in GLUCOSE, BUN, the results CREATININE, CA) section. POCT GLUCOSE Routine 05/05/2019 8:42 Results for this (AUTOMATED) PM CDT procedure are in the results section. POCT GLUCOSE Routine 05/05/2019 4:13 Results for this (AUTOMATED) PM CDT procedure are in the results section. POCT GLUCOSE Routine 05/05/2019 12:22 Results for this (AUTOMATED) PM CDT procedure are in the results section. LACTIC ACID WHOLE STAT 05/05/2019 10:59 Results for this BLOOD AM CDT procedure are in the results section. POCT GLUCOSE Routine 05/05/2019 8:04 Results for this (AUTOMATED) AM CDT procedure are in the results section. POCT GLUCOSE Routine 05/05/2019 7:41 Results for this (AUTOMATED) AM CDT procedure are in the results section. CBC WITH DIFFERENTIAL Routine 05/05/2019 5:15 Results for this AM CDT procedure are in the results section. CBC WITH DIFF Routine 05/05/2019 5:15 Results for this AM CDT procedure are in the results section. INTACT PTH CALCIUM Routine 05/05/2019 5:15 Results for this GROUP AM CDT procedure are in the results section. BASIC METABOLIC PANEL Routine 05/05/2019 5:15 Results for this (NA, K, CL, CO2, AM CDT procedure are in GLUCOSE, BUN, the results CREATININE, CA) section. POCT GLUCOSE Routine 05/04/2019 8:43 Results for this (AUTOMATED) PM CDT procedure are in the results section. POCT GLUCOSE Routine 05/04/2019 5:28 Results for this (AUTOMATED) PM CDT procedure are in the results section. US ABDOMEN COMPLETE Routine 05/04/2019 4:22 Pain of upper Results for this PM CDT abdomen procedure are in the results section. UNILATERAL VENOUS Routine 05/04/2019 1:14 DUPLEX LOWER EXTREMITY PM CDT BY VASCULAR LAB TROPONIN I STAT 05/04/2019 11:26 Results for this AM CDT procedure are in the results section. POCT GLUCOSE Routine 05/04/2019 11:24 Results for this (AUTOMATED) AM CDT procedure are in the results section. XR CHEST 1 VW HELEN 05/04/2019 10:32 Other hypervolemia Results for this AM CDT procedure are in the results section. POCT GLUCOSE Routine 05/04/2019 8:22 Results for this (AUTOMATED) AM CDT procedure are in the results section. UREA NITROGEN, URINE Routine 05/04/2019 5:13 Results for this RANDOM AM CDT procedure are in the results section. CBC WITH DIFFERENTIAL Routine 05/04/2019 5:11 Results for this AM CDT procedure are in the results section. CBC WITH DIFF Routine 05/04/2019 5:11 Results for this AM CDT procedure are in the results section. BASIC METABOLIC PANEL Routine 05/04/2019 5:08 Results for this (NA, K, CL, CO2, AM CDT procedure are in GLUCOSE, BUN, the results CREATININE, CA) section. MAGNESIUM Add-on 05/04/2019 5:08 Results for this AM CDT procedure are in the results section. PHOSPHORUS Add-on 05/04/2019 5:08 Results for this AM CDT procedure are in the results section. POCT GLUCOSE Routine 05/04/2019 1:27 Results for this (AUTOMATED) AM CDT procedure are in the results section. LACTIC ACID WHOLE STAT 05/03/2019 11:53 Results for this BLOOD PM CDT procedure are in the results section. GALV/CLC ONLY - URINE Routine 05/03/2019 11:53 Results for this DRUG (IMMUNOASSAY) - PM CDT procedure are in COMPREHENSIVE DRUG the results SCREEN section. POCT GLUCOSE Routine 05/03/2019 11:05 Results for this (AUTOMATED) PM CDT procedure are in the results section. CREATININE, URINE Add-on 05/03/2019 7:45 Results for this RANDOM PM CDT procedure are in the results section. URINALYSIS STAT 05/03/2019 7:45 Pain of upper Results for this PM CDT abdomen procedure are in the results section. CT ABDOMEN PELVIS WO STAT 05/03/2019 7:32 Pain of upper Results for this CONTRAST PM CDT abdomen procedure are in the results section. HIV 1/2 AG-AB WITH Add-on 05/03/2019 6:43 Results for this REFLEX PM CDT procedure are in the results section. CBC WITH DIFFERENTIAL STAT 05/03/2019 6:43 Pain of upper Results for this PM CDT abdomen procedure are in the results section. N-TERMINAL PRO-BNP STAT 05/03/2019 6:43 Pain of upper Results for this PM CDT abdomen procedure are in the results section. HCV ANTIBODY Add-on 05/03/2019 6:43 Results for this PM CDT procedure are in the results section. ACTIVATED PARTIAL STAT 05/03/2019 6:43 Pain of upper Results for this THRMPLAS NORMA PM CDT abdomen procedure are in the results section. PROTHROMBIN TIME / INR STAT 05/03/2019 6:43 Pain of upper Results for this PM CDT abdomen procedure are in the results section. GLYCOSYLATED Add-on 05/03/2019 6:43 Results for this HEMOGLOBIN (A1C) PM CDT procedure are in the results section. CBC WITH DIFF Routine 05/03/2019 6:43 Pain of upper Results for this PM CDT abdomen procedure are in the results section. ETHANOL Add-on 05/03/2019 6:43 Results for this PM CDT procedure are in the results section. LIPID PANEL Add-on 05/03/2019 6:43 Results for this (44325)(TOTAL PM CDT procedure are in CHOLESTEROL, the results TRIGLYCERIDES, HDL) section. BASIC METABOLIC PANEL STAT 05/03/2019 6:43 Pain of upper Results for this (NA, K, CL, CO2, PM CDT abdomen procedure are in GLUCOSE, BUN, the results CREATININE, CA) section. HEPATIC FUNCTION PANEL STAT 05/03/2019 6:43 Pain of upper Results for this (02747) PM CDT abdomen procedure are in (ALB,T.PRO,BILI the results T,BU/BC,ALT,AST,ALK section. PHOS) TROPONIN I STAT 05/03/2019 6:43 Pain of upper Results for this PM CDT abdomen procedure are in the results section. BETA HYDROXY-BUTYRATE Add-on 05/03/2019 6:43 Results for this PM CDT procedure are in the results section. LIPASE STAT 05/03/2019 6:43 Pain of upper Results for this PM CDT abdomen procedure are in the results section. documented in this encounter Results POCT GLUCOSE (AUTOMATED) (05/07/2019 12:14 PM CDT) POCT GLU 270 (H) 70 - 110 mg/dL [facility] Specimen Blood Performing Organization Address [facility] Phone Number [facility] CLIA: [id number], [address] [place] [address] [phone] [facility] POCT GLUCOSE (AUTOMATED) (05/07/2019 8:02 AM CDT) POCT GLU 143 (H) 70 - 110 mg/dL [facility] Specimen Blood Performing Organization Address City/[facility]/Zipcode Phone Number [facility] CLIA: [id number], [address] [place] [address] [phone] [facility] POCT GLUCOSE (AUTOMATED) (05/06/2019 9:11 PM CDT) POCT GLU 189 (H) 70 - 110 mg/dL [facility] Specimen Blood Performing Organization Address City/[facility]/Zipcode Phone Number [facility] CLIA: [id number], [address] [place] [address] [phone] [facility] POCT GLUCOSE (AUTOMATED) (05/06/2019 4:28 PM CDT) POCT GLU 204 (H) 70 - 110 mg/dL [facility] Specimen Blood Performing Organization Address City/[facility]/Zipcode Phone Number [facility] CLIA: [id number], [address] [place] [phone] [facility] POCT GLUCOSE (AUTOMATED) (05/06/2019 12:15 PM CDT) POCT GLU 262 (H) 70 - 110 mg/dL [facility] Specimen Blood Performing Organization Address [facility] Phone Number [facility] CLIA: [id number], [address] [place] [address] [phone] [facility] POCT GLUCOSE (AUTOMATED) (05/06/2019 8:11 AM CDT) POCT GLU 166 (H) 70 - 110 mg/dL [facility] Specimen Blood Performing Organization Address [facility] Phone Number [facility] CLIA: [id number], [address] [place] [phone] [facility] CBC WITH DIFFERENTIAL (05/06/2019 5:08 AM CDT) WBC 8.31 4.20 - 10.70 [facility] 10*3/L SERVICES RBC 3.74 (L) 4.26 - 5.52 [facility] 10*6/L SERVICES HGB 11.4 (L) 12.2 - 16.4 [facility] g/dL SERVICES HCT 34.3 (L) 38.4 - 49.3 % [facility] SERVICES MCV 91.7 81.7 - 95.6 fL [facility] MCH 30.5 26.1 - 32.7 pg [facility] MCHC 33.2 31.2 - 35.0 [facility] g/dL SERVICES RDW-SD 42.4 38.5 - 51.6 fL [facility] SERVICES RDW-CV 12.7 12.1 - 15.4 % [facility] PLT 212 150 - 328 [facility] 10*3/L SERVICES MPV 10.9 9.8 - 13.0 fL [facility] SERVICES NRBC/100 WBC 0.0 0.0 - 10.0 /100 [facility] WBCs SERVICES NRBC x10^3 <0.01 10*3/L [facility] SERVICES GRAN MAT (NEUT) % 66.4 % [facility] IMM GRAN % 0.40 % [facility] LYMPH % 21.4 % [facility] MONO % 8.4 % [facility] EOS % 2.9 % [facility] BASO % 0.5 % [facility] GRAN MAT x10^3(ANC) 5.52 1.99 - 6.95 [facility] 10*3/uL SERVICES IMM GRAN x10^3 0.03 0.00 - 0.06 [facility] 10*3/uL SERVICES LYMPH x10^3 1.78 1.09 - 3.23 [facility] 10*3/uL SERVICES MONO x10^3 0.70 0.36 - 1.02 [facility] 10*3/uL SERVICES EOS x10^3 0.24 0.06 - 0.53 [facility] 10*3/uL SERVICES BASO x10^3 0.04 0.01 - 0.09 [facility] 10*3/uL SERVICES Specimen Blood - ARM, LEFT Performing Organization Address City/State/Zipcode Phone Number [facility] CLIA: [id number], [address] [place] [address] [facility] Basic Metabolic Panel (NA, K, CL, CO2, GLUCOSE, BUN, CREATININE, CA) (2018 5:08 AM CDT) NA 139 135 - 145 [facility] mmol/L SERVICES K 4.1Comment: 3.5 - 5.0 [facility] Slight hemolysis mmol/L SERVICES CL 111 (H) 98 - 108 [facility] mmol/L SERVICES CO2 TOTAL 22 (L) 23 - 31 [facility] mmol/L SERVICES AGAP 6 2 - 16 [facility] SERVICES BUN 40 (H)Comment: 7 - 23 mg/dL [facility] Slight hemolysis SERVICES GLUCOSE 146 (H) 70 - 110 [facility] mg/dL SERVICES CREATININE 2.52 (H) 0.60 - 1.25 [facility] mg/dL SERVICES CALCIUM 8.1 (L) 8.6 - 10.6 [facility] mg/dL SERVICES eGFR Calculation 25.6 mL/min/1.73m2 [facility] (Non- SERVICES Malian) eGFR Calculation 31.0 mL/min/1.73m2 [facility] () SERVICES Specimen Blood - ARM, LEFT Narrative Performed At Association of Glomerular Filtration Rate (GFR) and Staging [facility] of Kidney Disease* + + + + | GFR (mL/min/1.73 m2)| With Kidney Damage|Without Kidney Damage + + + + |>90|Stage one| Normal + + + + |60-89|Stage two| Decreased GFR + + + + |30-59|Stage three| Stage three + + + + |15-29|Stage four | Stage four + + + + |<15 (or dialysis)|Stage five | Stage five + + + + *Each stage assumes the associated GFR level has been in effect for at least three months.Stages 1 to 5, with or without kidney disease, indicate chronic kidney disease. Notes: Determination of stages one and two (with eGFR >59mL/min/1.73 m2) requires estimation of kidney damage for at least three months as defined by structural or functional abnormalities of the kidney, manifested by either: Pathological abnormalities or Markers of kidney damage (including abnormalities in the composition of the blood or urine or abnormalities in imaging tests). Performing Organization Address City/[facility] Phone Number [facility] CLIA: [id number], [address] [place] [address] [facility] POCT GLUCOSE (AUTOMATED) (05/05/2019 8:42 PM CDT) POCT GLU 192 (H) 70 - 110 mg/dL [facility] Specimen Blood Performing Organization Address [facility] Phone Number [facility] CLIA: [id number], [address] [place] [phone] [facility] POCT GLUCOSE (AUTOMATED) (05/05/2019 4:13 PM CDT) POCT GLU 204 (H) 70 - 110 mg/dL [facility] Specimen Blood Performing Organization Address [facility] Phone Number [facility] CLIA: [id number], [address] [place] [address] [phone] [facility] POCT GLUCOSE (AUTOMATED) (05/05/2019 12:22 PM CDT) POCT GLU 256 (H) 70 - 110 mg/dL [facility] Specimen Blood Performing Organization Address City/[facility] Phone Number [facility] CLIA: [id number], [address] [place] [address] [phone] [facility] Lactic Acid Whole Blood (05/05/2019 10:59 AM CDT) Pathologist [facility] LACTIC ACID 1.81 0.50 - 2.20 mmol/L [facility] Specimen Blood - VENOUS Performing Organization Address [facility] Phone Number [facility] CLIA: [id number], [address] [place] [address] [phone] [facility] POCT GLUCOSE (AUTOMATED) (05/05/2019 8:04 AM CDT) POCT GLU 127 (H) 70 - 110 mg/dL [facility] Specimen Blood Performing Organization Address [facility] Phone Number [facility] CLIA: [id number], [address] [place] [address] [phone] [facility] POCT GLUCOSE (AUTOMATED) (05/05/2019 7:41 AM CDT) POCT GLU 133 (H) 70 - 110 mg/dL [facility] Specimen Blood Performing Organization Address [facility] Phone Number [facility] CLIA: [id number], [address] [place] [address] [phone] [facility] CBC WITH DIFFERENTIAL (05/05/2019 5:15 AM CDT) WBC 8.22 4.20 - 10.70 [facility] 10*3/L SERVICES RBC 3.58 (L) 4.26 - 5.52 [facility] 10*6/L SERVICES HGB 11.0 (L) 12.2 - 16.4 [facility] g/dL SERVICES HCT 32.0 (L) 38.4 - 49.3 % [facility] MCV 89.4 81.7 - 95.6 fL [facility] MCH 30.7 26.1 - 32.7 pg [facility] MCHC 34.4 31.2 - 35.0 [facility] g/dL SERVICES RDW-SD 41.0 38.5 - 51.6 fL [facility] RDW-CV 12.6 12.1 - 15.4 % [facility] PLT 195 150 - 328 [facility] 10*3/L SERVICES MPV 11.0 9.8 - 13.0 fL [facility] NRBC/100 WBC 0.0 0.0 - 10.0 /100 [facility] WBCs SERVICES NRBC x10^3 <0.01 10*3/L [facility] GRAN MAT (NEUT) % 70.9 % [facility] IMM GRAN % 0.50 % [facility] LYMPH % 18.2 % [facility] MONO % 7.8 % [facility] EOS % 2.1 % [facility] BASO % 0.5 % [facility] GRAN MAT x10^3(ANC) 5.83 1.99 - 6.95 [facility] 10*3/uL SERVICES IMM GRAN x10^3 0.04 0.00 - 0.06 [facility] 10*3/uL SERVICES LYMPH x10^3 1.50 1.09 - 3.23 [facility] 10*3/uL SERVICES MONO x10^3 0.64 0.36 - 1.02 [facility] 10*3/uL SERVICES EOS x10^3 0.17 0.06 - 0.53 [facility] 10*3/uL SERVICES BASO x10^3 0.04 0.01 - 0.09 [facility] 10*3/uL SERVICES Specimen Blood - VENOUS Performing Organization Address City/State/Zipcode Phone Number [facility] CLIA: [id number], [address] [place], [place] [address] INTACT PTH CALCIUM GROUP (05/05/2019 5:15 AM CDT) CALCIUM 8.1 (L) 8.6 - 10.6 [facility] mg/dL SERVICES PTH-INTACT 182.0 (H) 12.0 - 88.0 [facility] pg/mL SERVICES PTH-CA Interpretation Comment: Further [facility] clinical data SERVICES needed for interpretation. Specimen Blood - VENOUS Performing Organization Address City/State/Zipcode Phone Number [facility] CLIA: [id number], [address] [place] [address] [facility] Basic Metabolic Panel (NA, K, CL, CO2, GLUCOSE, BUN, CREATININE, CA) (2018 5:15 AM CDT) NA 138 135 - 145 [facility] mmol/L SERVICES K 3.9 3.5 - 5.0 [facility] mmol/L SERVICES CL 110 (H) 98 - 108 mmol/L [facility] CO2 TOTAL 23 23 - 31 mmol/L [facility] AGAP 5 2 - 16 [facility] BUN 40 (H) 7 - 23 mg/dL [facility] GLUCOSE 114 (H) 70 - 110 mg/dL [facility] CREATININE 2.20 (H) 0.60 - 1.25 [facility] mg/dL SERVICES CALCIUM 8.1 (L) 8.6 - 10.6 [facility] mg/dL SERVICES eGFR Calculation 29.9 mL/min/1.73m2 [facility] (Non- SERVICES Malian) eGFR Calculation 36.3 mL/min/1.73m2 [facility] () SERVICES Specimen Blood - VENOUS Narrative Performed At Association of Glomerular Filtration Rate (GFR) and Staging [facility] of Kidney Disease* + + + + | GFR (mL/min/1.73 m2)| With Kidney Damage|Without Kidney Damage + + + + |>90|Stage one| Normal + + + + |60-89|Stage two| Decreased GFR + + + + |30-59|Stage three| Stage three + + + + |15-29|Stage four | Stage four + + + + |<15 (or dialysis)|Stage five | Stage five + + + + *Each stage assumes the associated GFR level has been in effect for at least three months.Stages 1 to 5, with or without kidney disease, indicate chronic kidney disease. Notes: Determination of stages one and two (with eGFR >59mL/min/1.73 m2) requires estimation of kidney damage for at least three months as defined by structural or functional abnormalities of the kidney, manifested by either: Pathological abnormalities or Markers of kidney damage (including abnormalities in the composition of the blood or urine or abnormalities in imaging tests). Performing Organization Address City/[facility]/Zipcode Phone Number [facility] CLIA: [id number], [address] [place] [address] [facility] POCT GLUCOSE (AUTOMATED) (05/04/2019 8:43 PM CDT) POCT GLU 181 (H) 70 - 110 mg/dL [facility] Specimen Blood Performing Organization Address [facility] Phone Number [facility] CLIA: [id number], [address] [place] [address] [facility] POCT GLUCOSE (AUTOMATED) (05/04/2019 5:28 PM CDT) POCT GLU 233 (H) 70 - 110 mg/dL [facility] Specimen Blood Performing Organization Address [facility] Phone Number [facility] CLIA: [id number], [address] [place] [address] [facility] US ABDOMEN COMPLETE (05/04/2019 4:22 PM CDT) Specimen Impressions Performed At PACS/VR/DOSE 1.No evidence of cholelithiasis. 2.Hepatic steatosis 3.1.5 cm left renal cyst. Matthew Franz MD., have reviewed this study and agree with the above report. Narrative Performed At EXAM:US ABDOMEN COMPLETE PACS/VR/DOSE HISTORY: r/o gallstone pancreatitis; evaluate for ckd changes in kidneys as well COMPARISON: None. FINDINGS: The liver is normal in size (16.8 cm), shape and echotexture with mildly increased parenchymal echogenicity.No intrahepatic biliary dilatation is identified.The main portal vein demonstrates hepatopedal flow. The upper aorta, above the renal arteries, is seen and measures 2.3 cm in AP diameter.The upper IVC is seen entering the liver. The gallbladder is well distended without evidence of cholelithiasis, wall thickening, or pericholecystic fluid.No sonographic García's sign is elicited. The common bile duct is normal in caliber, measuring 3 mm. The kidneys are normal in size, shape and echotexture. Both kidneys demonstrate normal cortical thickness. The right kidney measures 10.1 cm. The left kidney measures 9.9 cm and contains a 1.5 cm anechoic, avascular lesion in the interpolar region with posterior acoustic enhancement, consistent with a cyst. No hydronephrosis or proximal hydroureter is seen. The spleen isnormal in size, measuring 8.0 cm.No evidence of ascites. The proximal pancreatic body has normal echotexture; the head and tail are obscured. Procedure Note [facility], Radiant Results Inft User - 05/04/2019 5:54 PM CDT EXAM:US ABDOMEN COMPLETE HISTORY: r/o gallstone pancreatitis; evaluate for ckd changes in kidneys as well COMPARISON: None. FINDINGS: The liver is normal in size (16.8 cm), shape and echotexture with mildly increased parenchymal echogenicity. No intrahepatic biliary dilatation is identified. The main portal vein demonstrates hepatopedal flow. The upper aorta, above the renal arteries, is seen and measures 2.3 cm in AP diameter. The upper IVC is seen entering the liver. The gallbladder is well distended without evidence of cholelithiasis, wall thickening, or pericholecystic fluid. No sonographic García's sign is elicited. The common bile duct is normal in caliber, measuring 3 mm. The kidneys are normal in size, shape and echotexture. Both kidneys demonstrate normal cortical thickness. The right kidney measures 10.1 cm. The left kidney measures 9.9 cm and contains a 1.5 cm anechoic, avascular lesion in the interpolar region with posterior acoustic enhancement, consistent with a cyst. No hydronephrosis or proximal hydroureter is seen. The spleen is normal in size, measuring 8.0 cm. No evidence of ascites. The proximal pancreatic body has normal echotexture; the head and tail are obscured. IMPRESSION 1. No evidence of cholelithiasis. 2. Hepatic steatosis 3. 1.5 cm left renal cyst. I, Cassandra Altman MD., have reviewed this study and agree with the above report. Performing Organization Address City/State/Zipcode Phone Number PACS/VR/DOSE TROPONIN I (05/04/2019 11:26 AM CDT) TROPONIN I 0.012 <=0.034 ng/mL [facility] Specimen Blood - HAND, LEFT Narrative Performed At Equal or Less than 0.034 ng/ml---Normal [facility] Note: Cardiac troponin begins to rise 3-4 hours after the onset of ischemia. Repeat in 4-6 hours if the sample was drawn within 3-4 hours of the onset of the symptom and found normal. Between 0.035 and 0.120 ng/mL--- Borderline. Questionable myocardial injury or necrosis Note: Serial measurement may be necessary to confirm or exclude the diagnosis of myocardial injury or necrosis; Clinical correlation (symptoms, EKGs, imaging studies, and others) required; Repeat in 4-6 hours if clinically indicated. Equal or Higher than 0.121 ng/mL---Abnormal. Myocardial Injury or Necrosis Likely Biotin has been reported to cause a negative bias, interpret results relative to patient's use of biotin. Performing Organization Address City/State/Zipcode Phone Number [facility] CLIA: [id number], [address] [place] [address] [facility] POCT GLUCOSE (AUTOMATED) (05/04/2019 11:24 AM CDT) POCT GLU 298 (H) 70 - 110 mg/dL [facility] Specimen Blood Performing Organization Address City/[facility]/Zipcode Phone Number [facility] CLIA: [id number], [address] [place] [phone] [facility] XR CHEST 1 VW (05/04/2019 10:32 AM CDT) Specimen Impressions Performed At Findings/IMPRESSION: PACS/VR/DOSE Streaky opacities in the left lower lung likely represent atelectasis. A small left-sided pleural effusion is suspected. The left hemidiaphragm is slightly elevated. No pneumothorax is noted. The heart is at the upper limit of normal in size. No acute osseous abnormality is detected. I reviewed this study and agree. I, Aristeo Cowan MD., have reviewed this study and agree with the above report. Narrative Performed At * * * * * * * * ORIGINAL REPORT * * * * * * * * PACS/VR/DOSE XR CHEST 1 VW Comparison: Chest x-ray on 10/02/2017 History: crackles Procedure Note [facility], [facility] Results Inft User - 05/04/2019 10:48 AM CDT * * * * * * * * ORIGINAL REPORT * * * * * * * * XR CHEST 1 VW Comparison: Chest x-ray on 10/02/2017 History: crackles IMPRESSION Findings/IMPRESSION: Streaky opacities in the left lower lung likely represent atelectasis. A small left-sided pleural effusion is suspected. The left hemidiaphragm is slightly elevated. No pneumothorax is noted. The heart is at the upper limit of normal in size. No acute osseous abnormality is detected. I reviewed this study and agree. I, Aristeo Cowan MD., have reviewed this study and agree with the above report. Performing Organization Address [facility]/Zipcoks Phone Number PACS/VR/DOSE POCT GLUCOSE (AUTOMATED) (05/04/2019 8:22 AM CDT) POCT GLU 290 (H) 70 - 110 mg/dL [facility] Specimen Blood Performing Organization Address [facility] Phone Number [facility] CLIA: [id number], [address] [place] [phone] [facility] UREA NITROGEN, URINE RANDOM (05/04/2019 5:13 AM CDT) UREA N UR 480 mg/dL [facility] Specimen Urine - URINE, CLEAN CATCH Performing Organization Address [facility] Phone Number [facility] CLIA: [id number], [address] [place] [address] [phone] [facility] CBC WITH DIFFERENTIAL (05/04/2019 5:11 AM CDT) WBC 7.72 4.20 - 10.70 [facility] 10*3/L SERVICES RBC 3.75 (L) 4.26 - 5.52 [facility] 10*6/L SERVICES HGB 11.4 (L) 12.2 - 16.4 [facility] g/dL SERVICES HCT 32.7 (L) 38.4 - 49.3 % [facility] MCV 87.2 81.7 - 95.6 fL [facility] MCH 30.4 26.1 - 32.7 pg [facility] MCHC 34.9 31.2 - 35.0 [facility] g/dL SERVICES RDW-SD 39.1 38.5 - 51.6 fL [facility] RDW-CV 12.2 12.1 - 15.4 % [facility] PLT 205 150 - 328 [facility] 10*3/L SERVICES MPV 10.7 9.8 - 13.0 fL [facility] NRBC/100 WBC 0.0 0.0 - 10.0 /100 [facility] WBCs SERVICES NRBC x10^3 <0.01 10*3/L [facility] GRAN MAT (NEUT) % 66.5 % [facility] IMM GRAN % 0.30 % [facility] LYMPH % 21.4 % [facility] MONO % 8.4 % [facility] EOS % 2.8 % [facility] BASO % 0.6 % [facility] GRAN MAT x10^3(ANC) 5.13 1.99 - 6.95 [facility] 10*3/uL SERVICES IMM GRAN x10^3 <0.03 0.00 - 0.06 [facility] 10*3/uL SERVICES LYMPH x10^3 1.65 1.09 - 3.23 [facility] 10*3/uL SERVICES MONO x10^3 0.65 0.36 - 1.02 [facility] 10*3/uL SERVICES EOS x10^3 0.22 0.06 - 0.53 [facility] 10*3/uL SERVICES BASO x10^3 0.05 0.01 - 0.09 [facility] 10*3/uL SERVICES Specimen Blood - VENOUS Performing Organization Address City/State/Zipcode Phone Number [facility] CLIA: [id number], [address] [place] [address] [phone] [facility] PHOSPHORUS (05/04/2019 5:08 AM CDT) PHOSPHORUS 3.9 2.5 - 5.0 mg/dL [facility] Specimen Blood - VENOUS Performing Organization Address City/[facility]/Zipcode Phone Number [facility] CLIA: [id number], [address] [place] [address] [phone] [facility] MAGNESIUM (05/04/2019 5:08 AM CDT) MAGNESIUM 1.8 1.7 - 2.4 mg/dL [facility] Specimen Blood - VENOUS Performing Organization Address City/State/Zipcode Phone Number [facility] CLIA: [id number], [address] [place] [address] [phone] [facility] Basic Metabolic Panel (NA, K, CL, CO2, GLUCOSE, BUN, CREATININE, CA) (2018 5:08 AM CDT) NA 137 135 - 145 [facility] mmol/L SERVICES K 3.3 (L) 3.5 - 5.0 [facility] mmol/L SERVICES CL 108 98 - 108 mmol/L [facility] CO2 TOTAL 21 (L) 23 - 31 mmol/L [facility] AGAP 8 2 - 16 [facility] BUN 38 (H) 7 - 23 mg/dL [facility] GLUCOSE 286 (H) 70 - 110 mg/dL [facility] CREATININE 2.48 (H) 0.60 - 1.25 [facility] mg/dL SERVICES CALCIUM 8.3 (L) 8.6 - 10.6 [facility] mg/dL SERVICES eGFR Calculation 26.1 mL/min/1.73m2 [facility] (Non- SERVICES Malian) eGFR Calculation 31.6 mL/min/1.73m2 [facility] () SERVICES Specimen Blood - VENOUS Narrative Performed At Association of Glomerular Filtration Rate (GFR) and Staging [facility] of Kidney Disease* + + + + | GFR (mL/min/1.73 m2)| With Kidney Damage|Without Kidney Damage + + + + |>90|Stage one| Normal + + + + |60-89|Stage two| Decreased GFR + + + + |30-59|Stage three| Stage three + + + + |15-29|Stage four | Stage four + + + + |<15 (or dialysis)|Stage five | Stage five + + + + *Each stage assumes the associated GFR level has been in effect for at least three months.Stages 1 to 5, with or without kidney disease, indicate chronic kidney disease. Notes: Determination of stages one and two (with eGFR >59mL/min/1.73 m2) requires estimation of kidney damage for at least three months as defined by structural or functional abnormalities of the kidney, manifested by either: Pathological abnormalities or Markers of kidney damage (including abnormalities in the composition of the blood or urine or abnormalities in imaging tests). Performing Organization Address City/State/[facility] Phone Number [facility] CLIA: [id number], [address] [place] [phone] [facility] POCT GLUCOSE (AUTOMATED) (05/04/2019 1:27 AM CDT) POCT GLU 285 (H) 70 - 110 mg/dL [facility] Specimen Blood Performing Organization Address City/[facility] Phone Number [facility] CLIA: [id number], [address] [place] [phone] [place] Lactic Acid Whole Blood (05/03/2019 11:53 PM CDT) LACTIC ACID 1.37 0.50 - 2.20 mmol/L [facility] Specimen Blood - VENOUS Performing Organization Address [facility] Phone Number [facility] CLIA: [id number], [address] [place] [address] [phone] [facility] GALV/CLC ONLY - URINE DRUG (IMMUNOASSAY) - COMPREHENSIVE DRUG SCREEN (2018 11:53 PM CDT) AMPHET Negative Negative [facility] LAN U Negative Negative [facility] BENZO U Negative Negative [facility] Cocaine Metabolite Negative Negative [facility] METHADONE Negative Negative [facility] OPIATES Negative Negative [facility] PCP Negative Negative [facility] THC Negative Negative [facility] Specimen Urine - URINE, CLEAN CATCH Narrative Performed At Urine Drug Cutoff Ranges [facility] Cocaine: 150 ng/mL Benzodiazepines: 200 ng/mL Methadone: 300 ng/mL Amphetamine: 1,000 ng/mL Opiates: 300 ng/mL Cannabinoids:50 ng/mL Phencyclidine: 25 ng/mL Barbiturates:200 ng/mL The results are to be used only for medical (i.e., treatment) purposes. Unconfirmed screening results must not be used for non-medical purposes (e.g., employment testing, legal testing). Performing Organization Address [facility] Phone Number [facility] CLIA: [id number], [address] [place] [address] [phone] [facility] POCT GLUCOSE (AUTOMATED) (05/03/2019 11:05 PM CDT) POCT GLU 331 (H) 70 - 110 mg/dL [facility] Specimen Blood Performing Organization Address City/[facility]/Zipcode Phone Number [facility] CLIA: [id number], [address] [place] [phone] [place] CREATININE, URINE RANDOM (05/03/2019 7:45 PM CDT) CREAT U 21.0 mg/dL [facility] Specimen Urine - URINE, CLEAN CATCH Performing Organization Address [facility] Phone Number [facility] CLIA: [id number], [address] [place] [address] [phone] [facility] Urinalysis (05/03/2019 7:45 PM CDT) APPEARANCE Hazy (A) Clear [facility] COLOR Straw (A) Yellow [facility] PH 6.0 4.8 - 8.0 [facility] SP GRAVITY 1.010 1.003 - 1.030 [facility] GLU U QUAL 500 mg/dL (A) Normal [facility] BLOOD 1+ (A) Negative [facility] KETONES Negative Negative [facility] PROTEIN 100 mg/dL (A) Negative [facility] UROBILIN Normal Normal [facility] BILIRUBIN Negative Negative [facility] NITRITE Negative Negative [facility] LEUK SIMA Negative Negative [facility] RBC/HPF 6 (H) 0 - 3 HPF [facility] WBC/HPF 1 0 - 5 HPF [facility] BACTERIA Negative Negative [facility] Specimen Urine - URINE, CLEAN CATCH Performing Organization Address [facility] Phone Number [facility] CLIA: [id number], [address] [place] [address] [phone] [facility] CT ABDOMEN PELVIS WO CONTRAST (05/03/2019 7:32 PM CDT) Specimen Impressions Performed At PACS/VR/DOSE No acute findings in the abdomen or pelvis. Kaye Franz MD., have reviewed this study and agree with the above report. Narrative Performed At * * * * * * * * ORIGINAL REPORT * * * * * * * * PACS/VR/DOSE EXAM: CT ABDOMEN/PELVIS WITHOUT CONTRAST HISTORY:Abd infection (incl peritonitis) COMPARISON: None. DOSE: 1145.74 mGycm TECHNIQUE AND FINDINGS: Contiguous axial imaging from the level of the lung bases through the pubic symphysis was performed without the intravenous administration of contrast. Coronal and sagittal reconstructions were obtained.Auto mA and/or iterative reconstruction were used to reduce radiation dose. FINDINGS: LOWER THORAX: Bibasilar dependent atelectasis. No cardiomegaly. Coronary artery calcifications with subendocardial areas of lower attenuation in the apical septum and apex with dilation of the left ventricular apex, most consistent with prior myocardial infarction.. LIVER: No focal hepatic lesions.Normal liver contour. GALLBLADDER AND BILIARY TREE: No biliary ductal dilation.No gallbladder wall thickening. SPLEEN: No splenomegaly. PANCREAS: No ductal dilation or masses. ADRENAL GLANDS: No adrenal nodules. KIDNEYS: No hydronephrosis, stones, or masses. PERITONEUM AND RETROPERITONEUM: No free air or fluid. LYMPH NODES: No lymphadenopathy. GI TRACT: No dilation or wall thickening. Sigmoid diverticulosis. PELVIS/BLADDER: Unremarkable. VESSELS: Scattered calcified atherosclerotic plaque. BONES AND SOFT TISSUES: No suspicious lytic or sclerotic bony lesions. Procedure Note [facility], Radiant Results Inft User - 05/03/2019 7:44 PM CDT * * * * * * * * ORIGINAL REPORT * * * * * * * * EXAM: CT ABDOMEN/PELVIS WITHOUT CONTRAST HISTORY: Abd infection (incl peritonitis) COMPARISON: None. DOSE: 1145.74 mGycm TECHNIQUE AND FINDINGS: Contiguous axial imaging from the level of the lung bases through the pubic symphysis was performed without the intravenous administration of contrast. Coronal and sagittal reconstructions were obtained. Auto mA and/or iterative reconstruction were used to reduce radiation dose. FINDINGS: LOWER THORAX: Bibasilar dependent atelectasis. No cardiomegaly. Coronary artery calcifications with subendocardial areas of lower attenuation in the apical septum and apex with dilation of the left ventricular apex, most consistent with prior myocardial infarction.. LIVER: No focal hepatic lesions. Normal liver contour. GALLBLADDER AND BILIARY TREE: No biliary ductal dilation. No gallbladder wall thickening. SPLEEN: No splenomegaly. PANCREAS: No ductal dilation or masses. ADRENAL GLANDS: No adrenal nodules. KIDNEYS: No hydronephrosis, stones, or masses. PERITONEUM AND RETROPERITONEUM: No free air or fluid. LYMPH NODES: No lymphadenopathy. GI TRACT: No dilation or wall thickening. Sigmoid diverticulosis. PELVIS/BLADDER: Unremarkable. VESSELS: Scattered calcified atherosclerotic plaque. BONES AND SOFT TISSUES: No suspicious lytic or sclerotic bony lesions. IMPRESSION No acute findings in the abdomen or pelvis. I, Adriana Acosta MD., have reviewed this study and agree with the above report. Performing Organization Address City/State/Zipcode Phone Number PACS/VR/DOSE HCV ANTIBODY (05/03/2019 6:43 PM CDT) HCV Ab NEGATIVE [facility] HCV Semi-Quantitative 0.03 [facility] Specimen Blood - VENOUS Performing Organization Address [facility] Phone Number [facility] CLIA: [id number], [address] [place] [address] [phone] [facility] HIV 1/2 AG-AB WITH REFLEX (05/03/2019 6:43 PM CDT) HIV 1/2 Ag-Ab with Negative Negative [facility] Reflex SERVICES HIV Semi-quantitative 0.06 [facility] Specimen Blood - VENOUS Narrative Performed At Non-reactive for HIV-1 antigen and HIV-1/HIV-2 [facility] antibodies.No laboratory evidence of HIV infection.Repeat in 2-4 weeks if acute HIV infection is suspected. Performing Organization Address [facility] Phone Number [facility] CLIA: [id number], [address] [place] [address] [phone] [facility] BETA HYDROXY-BUTYRATE (05/03/2019 6:43 PM CDT) BOH 0.1 mmol/L [facility] Specimen Blood - VENOUS Narrative Performed At Normal Ranges: [facility] Nonfasting Less than 0.1 mmol/L Overnight Fast Less than 0.4 mmol/L Fasting (1-2 weeks)6-8 mmol/L Test developed and characteristics determined by [facility]. Performing Organization Address [facility] Phone Number [facility] CLIA: [id number], [address] [place] [phone] [facility] ETHANOL (05/03/2019 6:43 PM CDT) ALCOHOL <10 mg/dL [facility] Specimen Blood - VENOUS Narrative Performed At Toxic Greater than or equal to 80 mg/dL. [facility] NOTE: Whole blood values are approximately 10% to 15% lower than serum and plasma. Performing Organization Address City/State/Zipcode Phone Number [facility] CLIA: [id number], [address] [place] [phone] [facility] GLYCOSYLATED HEMOGLOBIN (A1C) (05/03/2019 6:43 PM CDT) HGB A1C 10.7 (H) 4.0 - 6.0 % [facility] Specimen Blood - VENOUS Performing Organization Address [facility] Phone Number [facility] CLIA: [id number], [address] [place] [phone] [facility] LIPID PANEL (46070)(TOTAL CHOLESTEROL, TRIGLYCERIDES, HDL) (05/03/2019 6:43 PM CDT) CHOL 233 (H) 120 - 200 mg/dL [facility] HDL 36 (L) >40 mg/dL [facility] HDLC RATIO 6.5 (H) <=5.0 [facility] TRIG 299 (H) 30 - 170 mg/dL [facility] LDL CHOL 137 <=160 mg/dL [facility] VLDL 60 5 - 60 mg/dL [facility] Specimen Blood - VENOUS Performing Organization Address City/[facility] Phone Number [facility] CLIA: [id number], [address] [place] [phone] [facility] CBC WITH DIFFERENTIAL (05/03/2019 6:43 PM CDT) WBC 7.89 4.20 - 10.70 [facility] 10*3/L SERVICES RBC 4.04 (L) 4.26 - 5.52 [facility] 10*6/L SERVICES HGB 12.2 12.2 - 16.4 [facility] g/dL SERVICES HCT 35.6 (L) 38.4 - 49.3 % [facility] MCV 88.1 81.7 - 95.6 fL [facility] MCH 30.2 26.1 - 32.7 pg [facility] MCHC 34.3 31.2 - 35.0 [facility] g/dL SERVICES RDW-SD 39.1 38.5 - 51.6 fL [facility] RDW-CV 12.1 12.1 - 15.4 % [facility] PLT 223 150 - 328 [facility] 10*3/L SERVICES MPV 10.6 9.8 - 13.0 fL [facility] NRBC/100 WBC 0.0 0.0 - 10.0 /100 [facility] WBCs SERVICES NRBC x10^3 <0.01 10*3/L [facility] GRAN MAT (NEUT) % 74.0 % [facility] IMM GRAN % 0.30 % [facility] LYMPH % 15.8 % [facility] MONO % 7.5 % [facility] EOS % 2.0 % [facility] BASO % 0.4 % [facility] GRAN MAT x10^3(ANC) 5.84 1.99 - 6.95 [facility] 10*3/uL SERVICES IMM GRAN x10^3 <0.03 0.00 - 0.06 [facility] 10*3/uL SERVICES LYMPH x10^3 1.25 1.09 - 3.23 [facility] 10*3/uL SERVICES MONO x10^3 0.59 0.36 - 1.02 [facility] 10*3/uL SERVICES EOS x10^3 0.16 0.06 - 0.53 [facility] 10*3/uL SERVICES BASO x10^3 0.03 0.01 - 0.09 [facility] 10*3/uL SERVICES Specimen Blood - VENOUS Performing Organization Address City/State/Zipcode Phone Number [facility] CLIA: [id number], [address] [place] [phone] [facility] N-TERMINAL PRO-BNP (05/03/2019 6:43 PM CDT) NT-proBNP 686 (H) <=125 pg/mL [facility] Specimen Blood - VENOUS Narrative Performed At [facility] has been reported to cause a negative bias, interpret [facility] results relative to patient's use of biotin. Performing Organization Address City/State/Zipcode Phone Number [facility] CLIA: [id number], [address] [place] [phone] [facility] Prothrombin Time (PT) / INR (05/03/2019 6:43 PM CDT) PROTIME PATIENT 11.9 10.1 - 12.6 [facility] Seconds SERVICES INR 1.1Comment: Normal [facility] INR <1.1; Warfarin SERVICES Therapeutic range 2.0 to 3.0 or 2.5 to 3.5, depending upon the indications. Specimen Blood - VENOUS Performing Organization Address City/State/Zipcode Phone Number [facility] CLIA: [id number], [address] [place] [address] [phone] [facility] aPTT (05/03/2019 6:43 PM CDT) Pathologist [facility] APTT Patient 31 26 - 36 Seconds [facility] Specimen Blood - VENOUS Performing Organization Address [facility] Phone Number [facility] CLIA: [id number], [address] [place] [address] [phone] [facility] Troponin I (05/03/2019 6:43 PM CDT) Pathologist [facility] TROPONIN I 0.011 <=0.034 ng/mL [facility] Specimen Blood - VENOUS Narrative Performed At Equal or Less than 0.034 ng/ml---Normal [facility] Note: Cardiac troponin begins to rise 3-4 hours after the onset of ischemia. Repeat in 4-6 hours if the sample was drawn within 3-4 hours of the onset of the symptom and found normal. Between 0.035 and 0.120 ng/mL--- Borderline. Questionable myocardial injury or necrosis Note: Serial measurement may be necessary to confirm or exclude the diagnosis of myocardial injury or necrosis; Clinical correlation (symptoms, EKGs, imaging studies, and others) required; Repeat in 4-6 hours if clinically indicated. Equal or Higher than 0.121 ng/mL---Abnormal. Myocardial Injury or Necrosis Likely Biotin has been reported to cause a negative bias, interpret results relative to patient's use of biotin. Performing Organization Address City/State/Zipcode Phone Number [facility] CLIA: [id number], [address] [place] [phone] [facility] Lipase Serum (05/03/2019 6:43 PM CDT) LIPASE 1,187 (H) 0 - 220 U/L [facility] Specimen Blood - VENOUS Performing Organization Address [facility] Phone Number [facility] CLIA: [id number], [address] [place] [phone] [facility] Hepatic Function Panel (ALB, T.PRO, BILI T, BU/BC, ALT, AST, ALK PHOS) (2018 6:43 PM CDT) TOTAL BILI 0.5 0.1 - 1.1 mg/dL [facility] BILI UNCON 0.2 0.1 - 1.1 mg/dL [facility] BILI CONJ 0.0 0.0 - 0.3 mg/dL [facility] T PROTEIN 7.0 6.3 - 8.2 g/dL [facility] ALBUMIN 3.6 3.5 - 5.0 g/dL [facility] ALK PHOS 76 34 - 122 U/L [facility] ALT(SGPT) 21 9 - 51 U/L [facility] AST(SGOT) 21 13 - 40 U/L [facility] Specimen Blood - VENOUS Performing Organization Address City/[facility]/Zipcode Phone Number [facility] CLIA: [id number], [address] [place] [phone] [facility] Basic Metabolic Panel (NA, K, CL, CO2, GLUCOSE, BUN, CREATININE, CA) (2018 6:43 PM CDT) NA 134 (L) 135 - 145 [facility] mmol/L SERVICES K 3.9 3.5 - 5.0 [facility] mmol/L SERVICES CL 103 98 - 108 mmol/L [facility] CO2 TOTAL 23 23 - 31 mmol/L [facility] AGAP 8 2 - 16 [facility] BUN 37 (H) 7 - 23 mg/dL [facility] GLUCOSE 441 (H) 70 - 110 mg/dL [facility] CREATININE 2.54 (H) 0.60 - 1.25 [facility] mg/dL SERVICES CALCIUM 8.6 8.6 - 10.6 [facility] mg/dL SERVICES eGFR Calculation 25.3 mL/min/1.73m2 [facility] (Non- SERVICES Malian) eGFR Calculation 30.7 mL/min/1.73m2 [facility] () SERVICES Specimen Blood - VENOUS Narrative Performed At Association of Glomerular Filtration Rate (GFR) and Staging [facility] of Kidney Disease* + + + + | GFR (mL/min/1.73 m2)| With Kidney Damage|Without Kidney Damage + + + + |>90|Stage one| Normal + + + + |60-89|Stage two| Decreased GFR + + + + |30-59|Stage three| Stage three + + + + |15-29|Stage four | Stage four + + + + |<15 (or dialysis)|Stage five | Stage five + + + + *Each stage assumes the associated GFR level has been in effect for at least three months.Stages 1 to 5, with or without kidney disease, indicate chronic kidney disease. Notes: Determination of stages one and two (with eGFR >59mL/min/1.73 m2) requires estimation of kidney damage for at least three months as defined by structural or functional abnormalities of the kidney, manifested by either: Pathological abnormalities or Markers of kidney damage (including abnormalities in the composition of the blood or urine or abnormalities in imaging tests). Performing Organization Address City/State/Zipcode Phone Number [facility] CLIA: [id number], [address] [place] [phone] [facility] documented in this encounter Visit Diagnoses Diagnosis Acute pancreatitis without infection or necrosis, unspecified pancreatitis type - Primary Pain of upper abdomen Abdominal pain, other specified site Other hypervolemia Leg edema, left Edema Essential hypertension Unspecified essential hypertension Hyperlipidemia, unspecified hyperlipidemia type Peripheral polyneuropathy Unspecified hereditary and idiopathic peripheral neuropathy Depression, unspecified depression type Atypical chest pain Other chest pain Cellulitis of left lower extremity Cellulitis and abscess of leg, except foot Type 2 diabetes mellitus with stage 4 chronic kidney disease, with long-term current use of insulin Chest pain due to myocardial ischemia, unspecified ischemic chest pain type Acute kidney injury Acute kidney failure, unspecified documented in this encounter Administered Medications Medication Order MAR Action Action Date Dose Rate Site acetaminophen (TYLENOL) tablet Given 05/04/2019 10:34 PM CDT 650 mg 650 mg 650 mg, Oral, Q6HPRN, Starting Celeste 19 at 2328, Until Discontinued, Routine, Pain (scale 1-3) amLODIPine (NORVASC) tablet 10 mg Given 05/08/2019 10:14 AM CDT 10 mg 10 mg, Oral, DAILY, First dose on Tue05/08/19 at 0900, Until Discontinued, Routine aspirin chewable tablet 81 mg Given 05/08/2019 10:14 AM CDT 81 mg 81 mg, Oral, DAILY, First dose on Tue05/04/19 at 0900, Until Discontinued, Routine Given 05/07/2019 9:29 AM CDT 81 mg Given 05/06/2019 8:17 AM CDT 81 mg atorvastatin (LIPITOR) tablet 40 mg Given 05/07/2019 7:58 PM CDT 40 mg 40 mg, Oral, QHS, First dose on Tue05/04/19 at 2100, Until Discontinued, Routine Given 05/06/2019 9:12 PM CDT 40 mg Given 05/05/2019 8:56 PM CDT 40 mg cephALEXin (KEFLEX) capsule 500 mg Given 05/08/2019 10:14 AM CDT 500 mg 500 mg, Oral, Q12H, First dose on Tue05/04/19 at 2000, Until Discontinued, HELEN, Reason for Anti-Infective: Documented Infection, Documented Infection Site: Skin / Soft Tissue, Duration of Therapy: 7 days Given 05/07/2019 7:58 PM CDT 500 mg Given 05/07/2019 9:29 AM CDT 500 mg dextrose 10% (D10W) bolus infusion 250 mL 250 mL, IV Infusion, PRN - SEE INSTRUCTIONS, Give if sugar <70 and patient cannot tolerate PO or has AMS. Thank you, Starting Tue05/04/19 at 0045, Give if sugar <70 and patient cannot tolerate PO or has AMS. Thank you, gabapentin (NEURONTIN) capsule 300 mg Given 05/08/2019 10:14 AM CDT 300 mg 300 mg, Oral, TID, First dose on Tue05/04/19 at 0800, Until Discontinued, Routine Given 05/07/2019 7:58 PM CDT 300 mg Given 05/07/2019 3:34 PM CDT 300 mg glucagon (GLUCAGEN DIAGNOSTIC KIT) injection 1 mg 1 mg, Intramuscular, PRN, Starting Tue05/04/19 at 0033, Until Discontinued, HELEN, Blood Glucose < or=70 mg/dL and patient is unable to swallow or has mental changes. heparin injection 5,000 Units Given 05/04/2019 9:51 PM CDT 5,000 Units Abdomen-SC 5,000 Units, Subcutaneous, Q12H, First dose on Tue05/04/19 at 0800, Until Discontinued, Routine HYDROcodone-acetaminophen (NORCO) 10-325 Given 05/05/2019 12:45 PM CDT 1 tablet mg tablet 1 tablet 1 tablet, Oral, Q6HPRN, Starting 05/05/19 at 1020, Until Discontinued, Routine, Pain (scale 7-10) insulin NPH (HUMULIN N) injection Given 05/07/2019 8:01 PM CDT 8 Units Abdomen-SC 8 Units 8 Units, Subcutaneous, QAM+HS, First dose on Tue05/05/19 at 0900, Until Discontinued, Routine insulin regular human (HUMULIN R) Given 05/07/2019 6:04 PM CDT 5.6 Units Right Arm injection 5.6 Units 5.6 Units (rounded from 5.603 Units=0.13 Units/kg/day 86.2 kg), Subcutaneous, BIDAC, First dose on Tue05/04/19 at 0730, Until Discontinued, Routine Given 05/06/2019 5:04 PM CDT 5.6 Units Right Upper Arm-SC Given 05/05/2019 4:28 PM CDT 5.6 Units Right Arm isosorbide mononitrate (IMDUR) 24 hr tablet Given 05/08/2019 10:15 AM CDT 30 mg 30 mg 30 mg, Oral, DAILY, First dose on Tue05/04/19 at 0900, Until Discontinued, Routine Given 05/07/2019 9:29 AM CDT 30 mg Given 05/06/2019 8:17 AM CDT 30 mg metoprolol tartrate (LOPRESSOR) half tablet Given 05/08/2019 10:14 AM CDT 12.5 mg 12.5 mg 12.5 mg, Oral, BID, First dose on Tue05/04/19 at 0800, Until Discontinued, Routine Given 05/07/2019 7:58 PM CDT 12.5 mg Given 05/07/2019 9:29 AM CDT 12.5 mg ondansetron (ZOFRAN (PF)) injection 4 mg Given 05/04/2019 10:00 PM CDT 4 mg 4 mg, Slow IV Push, Q6HPRN, Starting Tue05/03/19 at 2332, Until Discontinued, Routine, Nausea and Vomiting (N/V) SERTraline (ZOLOFT) tablet 150 mg Given 05/08/2019 10:14 AM CDT 150 mg 150 mg, Oral, DAILY, First dose on Tue05/04/19 at 0900, Until Discontinued, Routine Given 05/07/2019 9:29 AM CDT 150 mg Given 05/06/2019 8:17 AM CDT 150 mg Sliding Scale Insulin - Aspart Given 05/07/2019 8:09 PM CDT 2 Units Abdomen-SC (NOVOLOG) + Fsbg Testing Subcutaneous, TID MEALS+HS, First dose on Tue05/04/19 at 0800, Until Discontinued, Routine Given 05/07/2019 6:04 PM CDT 2 Units Right Upper Arm-SC Given 05/07/2019 12:57 PM CDT 3 Units Right Arm Medication Order MAR Action Action Date Dose Rate Site acetaminophen (TYLENOL) tablet Given 05/04/2019 1:21 AM CDT 1,000 mg 1,000 mg 1,000 mg, Oral, ONCE NOW, 1 dose, Tue05/04/19 at 0145, Routine cloNIDine (CATAPRES) tablet 0.1 mg Given 05/07/2019 10:47 PM CDT 0.1 mg 0.1 mg, Oral, ONCE, 1 dose, Tue05/07/19 at 2015, Routine furosemide (LASIX) injection 40 mg Given 05/03/2019 6:48 PM CDT 40 mg 40 mg, IV Push, ONCE, 1 dose, Tue05/03/19 at 1930, HELEN hydralAZINE (APRESOLINE) injection 10 mg Given 05/03/2019 9:09 PM CDT 10 mg 10 mg, Intravenous, ONCE, 1 dose, Tue05/03/19 at 2215, Routine, Indication: Hypertensive Emergency hydroCHLOROthiazide (ESIDRIX) tablet 25 mg Given 05/07/2019 9:30 AM CDT 25 mg 25 mg, Oral, DAILY, First dose on Tue05/07/19 at 0900, Until Discontinued, Routine insulin glargine (LANTUS U-100) Given 05/04/2019 1:27 AM CDT 8.5 Units Abdomen-SC injection 17 Units 17 Units (rounded from 17.24 Units=0.2 Units/kg/day 86.2 kg), Subcutaneous, QHS, First dose on Tue05/04/19 at 0045, Until Discontinued, Routine insulin NPH (HUMULIN N) injection Given 05/04/2019 9:01 AM CDT 10 Units Right Arm 10 Units 10 Units (rounded from 10.344 Units=0.24 Units/kg/day 86.2 kg), Subcutaneous, QAM+HS, First dose on Tue05/04/19 at 0900, Until Discontinued, Routine lactated ringers IV infusion New Bag 05/07/2019 5:30 PM CDT 1,000 mL 999 mL/hr 1,000 mL at 999 mL/hr, 1,000 mL, Intravenous, ONCE, 1 dose, [facility] 05/07/19 at 1530, STAT metoprolol (LOPRESSOR) injection 5 mg Given 05/03/2019 6:40 PM CDT 5 mg 5 mg, Slow IV Push, ONCE, 1 dose, [facility] 05/03/19 at 1930, HELEN morpHINE injection 4 mg Given 05/03/2019 6:48 PM CDT 4 mg 4 mg, Slow IV Push, ONCE, 1 dose, [facility] 05/03/19 at 1945, STAT morpHINE injection 4 mg Given 05/03/2019 9:13 PM CDT 4 mg 4 mg, Slow IV Push, ONCE, 1 dose, [facility] 05/03/19 at 2215, STAT morpHINE injection 4 mg Given 05/05/2019 8:21 AM CDT 4 mg 4 mg, Slow IV Push, Q4HPRN, Starting [facility] 05/03/19 at 2335, Until Tue05/05/19 at 1016, Routine, Breakthrough Pain (scale 4-10) Given 05/04/2019 9:14 AM CDT 4 mg NaCl 0.9% (NS) IV infusion 1,000 New Bag 05/04/2019 1:25 AM CDT 1,000 mL 100 mL/hr mL at 100 mL/hr, Intravenous, CONTINUOUS, Starting Tue05/03/19 at 2345, Until Tue05/04/19 at 1144, HELEN NaCl 0.9% (NS) IV infusion Dose/Rate Verify 05/05/2019 8:29 AM CDT 100 mL /hr 1,000 mL at 100 mL/hr, Intravenous, CONTINUOUS, Starting Tue05/04/19 at 2330, Until 05/05/19 at 1129, HELEN New Bag 05/04/2019 11:30 PM CDT 1,000 mL 100 mL/hr nitroglycerin (NITROL) 2 % ointment 1 Inch Given 05/03/2019 7:40 PM CDT 1 Inch 1 Inch, Transdermal (Apply To Skin), ONCE, 1 dose, [facility] 05/03/19 at 1945, Routine ondansetron (ZOFRAN (PF)) injection 4 mg Given 05/03/2019 6:40 PM CDT 4 mg 4 mg, Slow IV Push, ONCE, 1 dose, [facility] 05/03/19 at 1930, HELEN ondansetron (ZOFRAN (PF)) injection 4 mg Given 05/03/2019 9:11 PM CDT 4 mg 4 mg, Slow IV Push, ONCE, 1 dose, [facility] 05/03/19 at 2215, HELEN potassium acetate 40 mEq in NaCl 0.9% (NS) Given 05/04/2019 9:16 AM CDT 40 mEq piggyback 40 mEq, IV Piggyback, ONCE, 1 dose, Tue05/04/19 at 0730, 250 mL documented in this encounter Insurance Payer Benefit Plan / Subscriber ID Effective Dates Phone Address Type Group MEDICARE MEDICARE PART xxxxxxxxxx 2016-Sydnie [phone] Medicare A t 2 [id number] [place] [id number] documented as of this encounter
--- OUTSIDE RECORDS SUMMARY | 2019-11-19 15:31 | XMS REPORT | Summary of Care ---
:1950 Author Organization [address] [address] Care Team Providers Name Role Phone Pcp, Patient Does Not Have A Primary Care Provider Reason for Visit Reason Comments Transition Of Care Encounter Details Date Type Department Care Team Description 05/09/2019 Transition of Care [facility] Marika Pritchard, coarse wire drawer Of Care [address] [address] Allergies No Known Allergiesdocumented as of this encounter (statuses as of 05/09/2019) Medications Medication Sig Dispensed Refills Start Date End Date Status lisinopril 2.5 mg Take 1 tablet by 30 tablet 0 05/07/2019 Active tabletIndications: mouth daily. Essential hypertension atorvastatin 40 mg Take 1 tablet by 30 tablet 3 05/07/2019 Active tabletIndications: mouth at Hyperlipidemia, bedtime. unspecified hyperlipidemia type gabapentin 300 mg Take 1 capsule 90 capsule 2 05/07/2019 Active capsuleIndications: by mouth 3 Peripheral (three) times polyneuropathy daily. metoprolol tartrate Take 0.5 tablets 15 tablet 3 05/07/2019 Active 25 mg by mouth 2 (two) tabletIndications: times daily. Essential hypertension SERTraline 100 mg Take 1.5 tablets 45 tablet 1 05/07/2019 Active tabletIndications: by mouth daily. Depression, unspecified depression type aspirin 81 mg Take 1 tablet by 30 tablet 11 05/07/2019 Active chewable mouth daily. tabletIndications: Hyperlipidemia, unspecified hyperlipidemia type isosorbide Take 1 tablet by 30 tablet 2 05/07/2019 Active mononitrate 30 mg 24 mouth daily. hr tabletIndications: Atypical chest pain nitroglycerin 0.[address] 1 tablet 30 tablet 0 05/07/2019 Active sublingual under the tongue tabletIndications: every 5 (five) Chest pain due to minutes as myocardial ischemia, needed for Chest unspecified ischemic pain. chest pain type cephALEXin 500 mg Take 1 capsule 6 capsule 0 05/07/2019 05/10/2019 Active capsuleIndications: by mouth every Cellulitis of left 12 (twelve) lower extremity hours for 3 days. insulin NPH and inject 8 Units 1 Vial 0 05/07/2019 Active regular human 70-30 under the skin 2 100 unit/mL (70-30) (two) times injectionIndications: daily before Type 2 diabetes breakfast and mellitus with stage 4 dinner. chronic kidney disease, with long-term current use of insulin amLODIPine 10 mg Take 1 tablet by 30 tablet 3 05/08/2019 Active tabletIndications: mouth daily. Essential hypertension documented as of this encounter (statuses as of 05/09/2019) Active Problems Problem Noted Date Acute kidney injury 05/04/2019 Acute pancreatitis 05/03/2019 Suicide attempt by multiple drug overdose 10/14/2017 Unstable angina 10/13/2017 Chest pain 10/02/2017 Myocardial infarction documented as of this encounter (statuses as of 05/09/2019) Immunizations Name Administration Dates Next Due Pneumococcal [...] of this encounter Last Filed Vital Signs Not on filedocumented in this encounter Plan of Treatment Health Maintenance Due Date Last Done Comments DTaP,Tdap,and Td Vaccines (1 - Tdap) 1970 COLONOSCOPY 2001 Zoster Recombinant Vaccine (SHINGRIX) (1 of 2) 2001 Medicare Wellness Visit 02/16/2016 PNEUMOCOCCAL VACCINES 65+ (1 of 2 - PCV13) 02/16/2016 INFLUENZA VACCINE (#1) 2019 HEPATITIS C (HCV) SCREEN Completed 05/03/2019 documented as of this encounter Results Not on filedocumented in this encounter Insurance Payer Benefit Plan Subscriber ID Effective Phone Address Type / Group Dates MEDICARE MEDICARE PART xxxxxxxxxx 2016-Pres [phone] Medicare A [facility] [id number] [place] [id number] MEDICAID MEDICAID SSI PENDING 2019-Pre [address] [place] [address] Pending P[place]ING [id number] documented as of this encounter
--- OUTSIDE RECORDS SUMMARY | 2019-11-19 15:32 | XMS REPORT | Summary of Care ---
:1950 Author Organization [address] [address] Care Team Providers Name Role Phone Pcp, Patient Does Not Have A Primary Care Provider Reason for Visit Reason Comments Referral/consult [facility] referral closed - unable to contact patient Encounter Details Date Type Department Care Team Description 05/18/2019 Patient Outreach [facility] Annelise Jasmine RN Referral/consult [address] ([facility] referral [facility] [place] [address] contact patient) [phone] Allergies No Known Allergiesdocumented as of this encounter (statuses as of 05/18/2019) Medications Medication Sig Dispensed Refills Start Date End Date Status lisinopril 2.5 mg Take 1 tablet by 30 tablet 0 05/07/2019 Active tabletIndications: mouth daily. Essential hypertension atorvastatin 40 mg Take 1 tablet by 30 tablet 3 05/07/2019 Active tabletIndications: mouth at bedtime. Hyperlipidemia, unspecified hyperlipidemia type gabapentin 300 mg Take 1 capsule by 90 capsule 2 05/07/2019 Active capsuleIndications: mouth 3 (three) Peripheral times daily. polyneuropathy metoprolol tartrate 25 Take 0.5 tablets 15 tablet 3 05/07/2019 Active mg tabletIndications: by mouth 2 (two) Essential hypertension times daily. SERTraline 100 mg Take 1.5 tablets 45 tablet 1 05/07/2019 Active tabletIndications: by mouth daily. Depression, unspecified depression type aspirin 81 mg chewable Take 1 tablet by 30 tablet 11 05/07/2019 Active tabletIndications: mouth daily. Hyperlipidemia, unspecified hyperlipidemia type isosorbide mononitrate Take 1 tablet by 30 tablet 2 05/07/2019 Active 30 mg 24 hr mouth daily. tabletIndications: Atypical chest pain nitroglycerin 0.[address] 1 tablet 30 tablet 0 05/07/2019 Active sublingual under the tongue tabletIndications: every 5 (five) Chest pain due to minutes as needed myocardial ischemia, for Chest pain. unspecified ischemic chest pain type insulin NPH and inject 8 Units 1 Vial 0 05/07/2019 Active regular human 70-30 under the skin 2 100 unit/mL (70-30) (two) times daily injectionIndications: before breakfast Type 2 diabetes and dinner. mellitus with stage 4 chronic kidney disease, with long-term current use of insulin amLODIPine 10 mg Take 1 tablet by 30 tablet 3 05/08/2019 Active tabletIndications: mouth daily. Essential hypertension documented as of this encounter (statuses as of 05/18/2019) Active Problems Problem Noted Date Acute kidney injury 05/04/2019 Acute pancreatitis 05/03/2019 Suicide attempt by multiple drug overdose 10/14/2017 Unstable angina 10/13/2017 Chest pain 10/02/2017 Myocardial infarction documented as of this encounter (statuses as of 05/18/2019) Immunizations Name Administration Dates Next Due Pneumococcal [...] Signs Not on filedocumented in this encounter Progress Notes Annelise Jasmine RN - 05/18/2019 10:11 AM CDTCHP referral is closed; unable to contact patient. BETTE Yoder, RN, [facility] Outpatient Computational MathematicianSenior HydrogeologistKindred Hospital - [place] O: [phone] M: [phone] documented in this encounter Plan of Treatment Health [...] 2016-Pres [phone] Medicare A [facility] [id number] [place] [phone] MEDICAID MEDICAID SSI PENDING 2019-Pre [address] P[place] [address] documented as of this encounter
--- OUTSIDE RECORDS SUMMARY | 2019-11-19 15:32 | XMS REPORT | Summary of Care ---
:1950 Author Organization [facility] Health Address [address] [place] [id number] Care Team Providers Name Role Phone Pcp, Patient Does Not Have A Primary Care Provider Encounter Details Date Type Department Care Team Description 05/15/2019 Orders Only [email or web address] Doctor Unassigned, No [address] [facility] [place] [address] [address] [place] [address] Allergies No Known Allergiesdocumented as of this encounter (statuses as of 05/15/2019) Medications Medication Sig Dispensed Refills Start Date [...] as of this encounter (statuses as of 05/15/2019) Active Problems Problem Noted Date Acute kidney injury 05/04/2019 Acute pancreatitis 05/03/2019 Suicide attempt by multiple drug overdose 10/14/2017 Unstable angina 10/13/2017 Chest pain 10/02/2017 Myocardial infarction documented as of this encounter (statuses as of 05/15/2019) Immunizations Name Administration Dates Next Due Pneumococcal [...] Procedure Name Priority Date/Time Associated Diagnosis Comments DNR Routine 05/15/2019 12:01 AM CDT documented in this encounter Results Not on filedocumented in this encounter Insurance Payer Benefit Plan Subscriber ID Effective Phone Address Type / Group Dates MEDICARE MEDICARE PART xxxxxxxxxx 2016-Pres [phone] Medicare A ent [id number] [place] [phone] MEDICAID MEDICAID SSI PENDING 2019-Pre [address] [place] [address] Pending PENDING PENDING sent RAJAT Ryan [phone] documented as of this encounter
--- OUTSIDE RECORDS SUMMARY | 2019-11-19 15:32 | XMS REPORT ---
:1950 Author Organization [facility] Address [address] [place] [address] Care Team Providers Name Role Phone SLOANE ALEMAN Unavailable Unavailable Problems This patient has no known problems. Allergies, Adverse Reactions, Alerts This patient has no known allergies or adverse reactions. Medications This patient has no known medications. Results Test Description Test Time Test Comments Text Results Atomic Results Result Comments BLOOD CULTURE 2019-09-16 09:24:00 Test Item Value Reference Range Comments CULTURE (BEAKER) (test aqmn=1580) No growth in 5 days BLOOD [id number] 09:24:00 Test Item Value Reference Range Comments CULTURE (BEAKER) (test rswm=1447) No growth in 5 days WOUND CULTURE + GRAM [id number] 09:28:00 Test Item Value Reference Range Comments CULTURE (BEAKER) (test ACINETOBACTER 4+ Acinetobacter onxf=9254) BAUMANNII COMPLEX baumannii complex Ampicillin + Sulbactam (test code=6) Cefazolin (test code=9) Cefepime (test code=51) Ceftazidime (test code=27) Ceftriaxone (test code=52) Gentamicin (test code=18) Levofloxacin (test code=22) Meropenem (test code=34) Tetracycline (test code=2) Tigecycline (test lovq=858) Tobramycin (test code=25) Trimethoprim + Sulfamethoxazole (test code=47) Colistimethate (test code=96) GRAM STAIN RESULT <1+ White blood cells (BEAKER) (test mgjp=3425) seen GRAM STAIN RESULT <1+ gram negative rods (BEAKER) (test kgpu=508127) GRAM STAIN RESULT <1+ gram positive (BEAKER) (test cocci wekk=775679) 1+ Skin floraPOCT-GLUCOSE [id number] 11:48:00 Test Item Value Reference Range Comments POC-GLUCOSE METER (BEAKER) 116 mg/dL 70-110 : Notified RN/MD: TESTED AT (test hlla=9328) [facility] [address] [facility] [address]: Fire Protection Engineering Technician/Utility Plant Operative [id number] for Livia Garber POCT-GLUCOSE [id number] 07:55:00 Test Item Value Reference Range Comments POC-GLUCOSE METER (BEAKER) 104 mg/dL 70-110 : Notified RN/MD: TESTED AT (test afze=8523) [facility] [address] [facility] [address]: Fire Protection Engineering Technician/Utility Plant Operative [id number] for Livia Garber CBC W/PLT COUNT & AUTO [id number] 07:26:00 Test Item Value Reference Range Comments WHITE BLOOD CELL COUNT (BEAKER) (test jumn=482) 5.0 K/ L 4.0-10.0 RED BLOOD CELL COUNT (BEAKER) (test zuzv=656) 3.84 M/ L 4.20-5.80 HEMOGLOBIN (BEAKER) (test mlyt=528) 11.3 GM/DL 13.0-16.8 HEMATOCRIT (BEAKER) (test azkd=670) 34.4 % 36.0-50.0 MEAN CORPUSCULAR VOLUME (BEAKER) (test vcya=204) 89.6 fL 82.0-99.0 MEAN CORPUSCULAR HEMOGLOBIN (BEAKER) (test 29.4 pg 27.0-33.0 npjd=837) MEAN CORPUSCULAR HEMOGLOBIN CONC (BEAKER) (test 32.8 GM/DL 32.0-36.0 sswc=245) RED CELL DISTRIBUTION WIDTH (BEAKER) (test 13.0 % 12.0-15.0 wrie=218) PLATELET COUNT (BEAKER) (test iofm=383) 176 K/CU MM 150-430 MEAN PLATELET VOLUME (BEAKER) (test bpda=249) 10.4 fL 6.0-11.5 NUCLEATED RED BLOOD CELLS (BEAKER) (test 0 /100 WBC 0-0 puls=327) (MANUAL DIFFERENTIAL)2019-09-12 07:26:00 Test Item Value Reference Range Comments NEUTROPHILS - REL (DIFF) (BEAKER) (test loir=5284) 64 % LYMPHOCYTES - REL (DIFF) (BEAKER) (test tuzv=5003) 23 % MONOCYTES - REL (DIFF) (BEAKER) (test urfh=4185) 4 % EOSINOPHILS - REL (DIFF) (BEAKER) (test qacm=8429) 1 % BANDS - REL (DIFF) (BEAKER) (test qmtn=0669) 8 % 0-10 NEUTROPHILS - ABS (DIFF) (BEAKER) (test qbrg=4868) 3.20 K/ L 1.80-8.00 LYMPHOCYTES - ABS (DIFF) (BEAKER) (test ugkf=5754) 1.15 K/ L 1.48-4.50 MONOCYTES - ABS (DIFF) (BEAKER) (test aurs=4362) 0.20 K/ L 0.00-1.30 EOSINOPHILS - ABS (DIFF) (BEAKER) (test ajay=5379) 0.05 K/ L 0.00-0.50 BANDS-ABS (DIFF) (BEAKER) (test efve=8138) 0.4 K/ L 0.0-0.8 TOTAL COUNTED (BEAKER) (test wvpg=1112) 100 BANDS + SEGMENTED NEUTROPHILS (BEAKER) (test 3.60 atlu=5822) WBC MORPHOLOGY (BEAKER) (test qvub=903) Normal PLT MORPHOLOGY (BEAKER) (test kjeu=323) Normal ANISOCYTOSIS (BEAKER) (test vmkh=948) 1+ few COMPREHENSIVE METABOLIC [id number] 06:41:00 Test Item Value Reference Range Comments TOTAL PROTEIN (BEAKER) 6.7 gm/dL 6.0-8.5 (test dska=850) ALBUMIN (BEAKER) (test 3.0 g/dL 3.5-5.0 gzce=5784) ALKALINE PHOSPHATASE 88 U/L 30-115 (BEAKER) (test sulv=906) BILIRUBIN TOTAL (BEAKER) 0.5 mg/dL 0.1-1.2 (test vpfn=028) SODIUM (BEAKER) (test 141 meq/L 135-148 mrqa=844) POTASSIUM (BEAKER) (test 4.0 meq/L 3.6-5.5 zggn=743) CHLORIDE (BEAKER) (test 103 meq/L 98-106 jbyz=461) CO2 (BEAKER) (test 30 meq/L 20-29 ihew=827) BLOOD UREA NITROGEN 32 mg/dL 10-26 (BEAKER) (test rrwy=048) CREATININE (BEAKER) (test 3.01 mg/dL 0.50-1.20 kaxq=720) GLUCOSE RANDOM (BEAKER) 105 mg/dL 70-110 (test xpgp=618) CALCIUM (BEAKER) (test 8.6 mg/dL 8.5-10.5 yeyr=745) AST (SGOT) (BEAKER) (test 20 U/L 5-40 zoby=192) ALT (SGPT) (BEAKER) (test 11 U/L 5-50 jtlt=283) EGFR (BEAKER) (test 21 mL/min/1.73 sq m ESTIMATED GFR IS NOT jxyz=5811) ACCURATE CREATININE CLEARANCE IN PREDICTING GLOMERULAR FILTRATION RATE. ESTIMATED GFR IS NOT APPLICABLE FOR DIALYSIS PATIENTS. POCT-GLUCOSE [id number] 20:22:00 Test Item Value Reference Range Comments POC-GLUCOSE METER (BEAKER) 146 mg/dL 70-110 : TESTED AT [address] (test oleu=8557) [facility] [address]: Fire Protection Engineering Technician/Utility Plant Operative [id number] for Liliana Ghosh POCT-GLUCOSE [id number] 17:35:00 Test Item Value Reference Range Comments POC-GLUCOSE METER (BEAKER) 89 mg/dL 70-110 : TESTED AT [address] (test uytn=0198) [facility] [address]: Fire Protection Engineering Technician/Utility Plant Operative [id number] for Yelitza Whitley RESPIRATORY PANEL [id number] 14:24:00 Test Item Value Reference Range Comments HUMAN METAPNEUMOVIRUS Not detected Not detected, (BEAKER) (test jckj=5191) Equivocal RHINOVIRUS (BEAKER) (test Not detected Not detected, ggkg=7051) Equivocal INFLUENZA A (BEAKER) (test Not detected Not detected, ppkb=5464) Equivocal INFLUENZA A (NO SUBTYPE) (test htqw=8391) INFLUENZA A SUBTYPE H1 (BEAKER) (test ubhm=7360) INFLUENZA A SUBTYPE H3 (BEAKER) (test gtsy=6147) INFLUENZA A SUBTYPE H1-2009 (BEAKER) (test npbp=2129) INFLUENZA B (BEAKER) (test Not detected Not detected, wepg=5344) Equivocal RESPIRATORY SYNCYTIAL Detected Not detected, Assay is not able VIRUS (BEAKER) (test Equivocal differentiate between RSV dykb=7040) A and RSV B.Contact isolation if immunosuppressed or young children. Consider stopping antibiotics. PARAINFLUENZA VIRUS 1 Not detected Not detected, (BEAKER) (test fkqg=0635) Equivocal PARAINFLUENZA VIRUS 2 Not detected Not detected, (BEAKER) (test wcbq=9696) Equivocal PARAINFLUENZA VIRUS 3 Not detected Not detected, (BEAKER) (test zqkl=1163) Equivocal PARAINFLUENZA VIRUS 4 Not detected Not detected, (BEAKER) (test zfqm=2282) Equivocal ADENOVIRUS (BEAKER) (test Not detected Not detected, womi=3929) Equivocal CORONAVIRUS 229E (BEAKER) Not detected Not detected, (test eolg=7992) Equivocal CORONAVIRUS HKU1 (BEAKER) Not detected Not detected, (test vyiq=2797) Equivocal CORONAVIRUS NL63 (BEAKER) Not detected Not detected, (test oeuc=9833) Equivocal CORONAVIRUS OC43 (BEAKER) Not detected Not detected, (test padh=9843) Equivocal BORDETELLA PERTUSSIS Not detected Not detected, (BEAKER) (test kgct=0383) Equivocal CHLAMYDOPHILA PNEUMONIAE Not detected Not detected, (BEAKER) (test slii=6254) Equivocal MYCOPLASMA PNEUMONIAE Not detected Not detected, (BEAKER) (test ljip=8802) Equivocal Other viruses and bacteria not targeted by this PCR panel cannot be excluded; therefore clinical correlation and follow up of serology, culture results, and other molecular studies is required. The results are not intended to be used as the sole means for clinical diagnosis or patient management decisions. This sample was tested at the [facility] using the [employer] FilmArray Respiratory Panel. It is FDA cleared and has been verified and approved by the [facility] for clinical use on nasopharyngeal swab specimens.The performance of the FilmArrayRP has not been established in individuals who received influenza vaccine. Recent administration ofa nasal influenza vaccine may cause false positive results for Influenza A and/orInfluenza B.POCT-GLUCOSE [id number] 12:01:00 Test Item Value Reference Range Comments POC-GLUCOSE METER (BEAKER) 103 mg/dL 70-110 : TESTED AT [address] (test ucou=8503) [facility] [address]: Fire Protection Engineering Technician/Utility Plant Operative [id number] for Yelitza Whitley POCT-GLUCOSE [id number] 08:23:00 Test Item Value Reference Range Comments POC-GLUCOSE METER (BEAKER) 99 mg/dL 70-110 : TESTED AT [facility] [address] [facility] (test yxji=5784) [facility] [address]: Fire Protection Engineering Technician/Utility Plant Operative [id number] for Yelitza Whitley COMPREHENSIVE METABOLIC [id number] 05:12:00 Test Item Value Reference Range Comments TOTAL PROTEIN (BEAKER) 7.0 gm/dL 6.0-8.5 (test ygkz=597) ALBUMIN (BEAKER) (test 3.3 g/dL 3.5-5.0 lyst=9089) ALKALINE PHOSPHATASE 105 U/L 30-115 (BEAKER) (test svmo=894) BILIRUBIN TOTAL (BEAKER) 0.6 mg/dL 0.1-1.2 (test udpr=077) SODIUM (BEAKER) (test 140 meq/L 135-148 cmcp=624) POTASSIUM (BEAKER) (test 4.0 meq/L 3.6-5.5 ibxr=288) CHLORIDE (BEAKER) (test 103 meq/L 98-106 yqou=723) CO2 (BEAKER) (test 26 meq/L 20-29 tsfk=926) BLOOD UREA NITROGEN 37 mg/dL 10-26 (BEAKER) (test omvn=888) CREATININE (BEAKER) (test 3.18 mg/dL 0.50-1.20 gqzl=798) GLUCOSE RANDOM (BEAKER) 93 mg/dL 70-110 (test kitq=944) CALCIUM (BEAKER) (test 8.5 mg/dL 8.5-10.5 cwni=176) AST (SGOT) (BEAKER) (test 20 U/L 5-40 wgrj=202) ALT (SGPT) (BEAKER) (test 12 U/L 5-50 kphy=015) EGFR (BEAKER) (test 20 mL/min/1.73 sq m ESTIMATED GFR IS NOT npvh=2689) ACCURATE CREATININE CLEARANCE IN PREDICTING GLOMERULAR FILTRATION RATE. ESTIMATED GFR IS NOT APPLICABLE FOR DIALYSIS PATIENTS. POCT-GLUCOSE [id number] 04:52:00 Test Item Value Reference Range Comments POC-GLUCOSE METER (BEAKER) 146 mg/dL 70-110 : TESTED AT [address] (test tjkt=4274) [facility] [address]: Fire Protection Engineering Technician/Utility Plant Operative [id number] for Kanwal W[place] CBC W/PLT COUNT & AUTO [id number] 04:46:00 Test Item Value Reference Range Comments WHITE BLOOD CELL COUNT (BEAKER) (test rwlt=689) 5.1 K/ L 4.0-10.0 RED BLOOD CELL COUNT (BEAKER) (test hydh=449) 3.91 M/ L 4.20-5.80 HEMOGLOBIN (BEAKER) (test xuth=189) 11.3 GM/DL 13.0-16.8 HEMATOCRIT (BEAKER) (test miin=869) 35.0 % 36.0-50.0 MEAN CORPUSCULAR VOLUME (BEAKER) (test wrpq=544) 89.5 fL 82.0-99.0 MEAN CORPUSCULAR HEMOGLOBIN (BEAKER) (test 28.9 pg 27.0-33.0 ghyc=211) MEAN CORPUSCULAR HEMOGLOBIN CONC (BEAKER) (test 32.3 GM/DL 32.0-36.0 vgxk=965) RED CELL DISTRIBUTION WIDTH (BEAKER) (test 13.0 % 12.0-15.0 gvzt=063) PLATELET COUNT (BEAKER) (test gtim=115) 143 K/CU MM 150-430 MEAN PLATELET VOLUME (BEAKER) (test vaci=904) 10.6 fL 6.0-11.5 NUCLEATED RED BLOOD CELLS (BEAKER) (test 0 /100 WBC 0-0 wvwz=108) NEUTROPHILS RELATIVE PERCENT (BEAKER) (test 57 % wfas=118) LYMPHOCYTES RELATIVE PERCENT (BEAKER) (test 25 % sqlg=538) MONOCYTES RELATIVE PERCENT (BEAKER) (test 12 % ounb=504) EOSINOPHILS RELATIVE PERCENT (BEAKER) (test 5 % xvmg=011) BASOPHILS RELATIVE PERCENT (BEAKER) (test 1 % zmlw=209) NEUTROPHILS ABSOLUTE COUNT (BEAKER) (test 2.89 K/ L 1.80-8.00 pvlv=041) LYMPHOCYTES ABSOLUTE COUNT (BEAKER) (test 1.25 K/ L 1.48-4.50 xazx=826) MONOCYTES ABSOLUTE COUNT (BEAKER) (test 0.63 K/ L 0.00-1.30 mwiz=582) EOSINOPHILS ABSOLUTE COUNT (BEAKER) (test 0.26 K/ L 0.00-0.50 nqhb=604) BASOPHILS ABSOLUTE COUNT (BEAKER) (test 0.03 K/ L 0.00-0.20 pxtf=561) IMMATURE GRANULOCYTES-RELATIVE PERCENT (BEAKER) 0 % 0-0 (test qoex=9596) U/S, ABDOMINAL, [id number] 01:31:00Reason for exam:->renal failureFINAL REPORT History: Abdominal pain and renal failure Abdominal ultrasound dated 09/10/2019 Comparison: None Comment: Real- time transabdominal ultrasound of the abdomen was performed. Liver: 15.0 cm , normal. Normal echogenicity. No focal lesions. Gallbladder: No gallstones.Diffuse gallbladder wall thickening, measuring 4 mm. No perocholecystic fluid.. No sonographic García's sign. The transverse diameter of the gallbladder lumen measures 2.4 cm. Biliary tree: No intrahepatic ductal dilatation. CBD: 4 mm. MPV: 11 mm Spleen: Normal size and echogenicity. Pancreas : Obscured by overlying bowel gas Right kidney: 9.4 x 6.0 x 5.8 cm. Normal echogenicity.Left kidney: 10.7 x 6.0 x 5.3 cm. Normal echogenicity. No ascites is present in the abdomen. The visualized abdominal aorta is normal in caliber. The IVC and Hepatic veins are patent. Impression: Diffuse gallbladder wall thickening, a nonspecific appearance in the absence of visualized cholelithiasis. If there is concern for gallbladder disease or dysfunction further evaluation with hepatobiliary nuclear medicine imaging can be obtained. Unremarkable ultrasound appearance of the kidneys. Signed: Madhavi Feliciano MDReport Verified Date/Time: 09/11/2019 01:31:39 RE [id number] 17:00:00 Test Item Value Reference Range Comments TROPONIN I (BEAKER) (test zxol=614) < ng/mL 0.00-0.15 Troponin I (TnI) levels must be interpreted in the context of the presenting symptoms and the clinical findings. Elevated TnI levels indicate myocardial damage, but are not specific for ischemic heart disease. Elevated TnI levels are seen in patients with other cardiac conditions (including myocarditis and congestive heart failure), and slight TnI elevations occur in patients with other conditions, including sepsis, renal failure, acidosis, acute neurological disease, and persistent tachyarrhythmia.POCT-GLUCOSE [id number] 16:57:00 Test Item Value Reference Range Comments POC-GLUCOSE METER (BEAKER) 102 mg/dL 70-110 : Notified RN/MD: TESTED AT (test fgkn=9443) [facility] [address] [place], [place] [address]: Fire Protection Engineering Technician/Utility Plant Operative [id number] for Shirlene, Reganitaben POCT-GLUCOSE [id number] 15:11:00 Test Item Value Reference Range Comments POC-GLUCOSE METER (BEAKER) 104 mg/dL 70-110 : Notified RN/MD: TESTED AT (test wspq=9102) [place] [id number]: Fire Protection Engineering Technician/Utility Plant Operative [id number] for Shirlene, Nikitaben POCT-GLUCOSE [id number] 14:53:00 Test Item Value Reference Range Comments POC-GLUCOSE METER (BEAKER) 97 mg/dL 70-110 : Notified RN/MD: TESTED AT [facility] (test prmb=8368) [address] [place], [place] [address]: Fire Protection Engineering Technician/Utility Plant Operative [id number] for Shirlene, Nikitaben POCT-GLUCOSE [id number] 14:39:00 Test Item Value Reference Range Comments POC-GLUCOSE METER (BEAKER) 116 mg/dL 70-110 : TESTED AT [address] (test tihl=9764) [place] [address]: Fire Protection Engineering Technician/Utility Plant Operative [id number] for Aaleslyeusiem, felicity TSH/FREE T4 IF [id number] 11:54:00 Test Item Value Reference Range Comments THYROID STIMULATING HORMONE (BEAKER) (test 1.59 uIU/mL 0.35-5.50 ttlg=660) LIPID [id number] 09:55:00 Test Item Value Reference Range Comments TRIGLYCERIDES (BEAKER) (test btln=166) 120 mg/dL CHOLESTEROL (BEAKER) (test kvqw=377) 99 mg/dL HDL CHOLESTEROL (BEAKER) (test mntb=695) 28 mg/dL LDL CHOLESTEROL CALCULATED (BEAKER) (test 47 mg/dL ykqw=238) Triglyceride Reference Range: Low Risk <150 Borderline 150- 199 High Risk 200-499 Very High Risk >=500Cholesterol Reference Range: Low Risk <200 Borderline 200-239 High Risk > 240HDL Cholesterol Reference Range: Low Risk >=60 High Risk <40LDL Cholesterol Reference Range: Optimal <100 Near Optimal 100-129 Borderline 130-159 High 160-189 Very High >=190COMPREHENSIVE METABOLIC [id number] 09:54:00 Test Item Value Reference Range Comments TOTAL PROTEIN (BEAKER) 7.0 gm/dL 6.0-8.5 (test uicp=831) ALBUMIN (BEAKER) (test 3.3 g/dL 3.5-5.0 wjsi=3015) ALKALINE PHOSPHATASE 107 U/L 30-115 (BEAKER) (test uxkn=665) BILIRUBIN TOTAL (BEAKER) 0.6 mg/dL 0.1-1.2 (test atxx=247) SODIUM (BEAKER) (test 138 meq/L 135-148 pdqg=592) POTASSIUM (BEAKER) (test 4.4 meq/L 3.6-5.5 kgnn=169) CHLORIDE (BEAKER) (test 104 meq/L 98-106 pcce=541) CO2 (BEAKER) (test 25 meq/L 20-29 mmgc=534) BLOOD UREA NITROGEN 39 mg/dL 10-26 (BEAKER) (test aatu=795) CREATININE (BEAKER) (test 3.10 mg/dL 0.50-1.20 wkgz=689) GLUCOSE RANDOM (BEAKER) 99 mg/dL 70-110 (test jxaw=213) CALCIUM (BEAKER) (test 8.8 mg/dL 8.5-10.5 cpap=655) AST (SGOT) (BEAKER) (test 21 U/L 5-40 rgqd=021) ALT (SGPT) (BEAKER) (test 14 U/L 5-50 wlcy=568) EGFR (BEAKER) (test 20 mL/min/1.73 sq m ESTIMATED GFR IS NOT dmdw=7477) ACCURATE CREATININE CLEARANCE IN PREDICTING GLOMERULAR FILTRATION RATE. ESTIMATED GFR IS NOT APPLICABLE FOR DIALYSIS PATIENTS. [id number] 09:54:00 Test Item Value Reference Range Comments MAGNESIUM (BEAKER) (test mfvn=712) 1.9 mg/dL 1.5-3.0 TROPONIN [id number] 09:54:00 Test Item Value Reference Range Comments TROPONIN I (BEAKER) (test xcbu=602) < ng/mL 0.00-0.15 Troponin I (TnI) levels must be interpreted in the context of the presenting symptoms and the clinical findings. Elevated TnI levels indicate myocardial damage, but are not specific for ischemic heart disease. Elevated TnI levels are seen in patients with other cardiac conditions (including myocarditis and congestive heart failure), and slight TnI elevations occur in patients with other conditions, including sepsis, renal failure, acidosis, acute neurological disease, and persistent tachyarrhythmia.URINALYSIS W/ REFLEX URINE [id number] 09:49:00 Test Item Value Reference Range Comments COLOR (BEAKER) (test hcms=469) Yellow CLARITY (BEAKER) (test dalc=679) Clear SPECIFIC GRAVITY UA (BEAKER) (test nxii=325) 1.025 1.001-1.035 PH UA (BEAKER) (test xcwy=066) 6.0 5.0-8.0 PROTEIN UA (BEAKER) (test uxjs=408) >=300 mg/dL Negative GLUCOSE UA (BEAKER) (test gyvj=864) Negative Negative KETONES UA (BEAKER) (test fxva=447) Negative Negative BILIRUBIN UA (BEAKER) (test oanu=962) Negative Negative BLOOD UA (BEAKER) (test xbml=600) Small Negative NITRITE UA (BEAKER) (test wciq=159) Negative Negative LEUKOCYTE ESTERASE UA (BEAKER) (test Negative Negative gtcs=728) UROBILINOGEN UA (BEAKER) (test trwl=467) 0.2 mg/dL 0.2-1.0 BACTERIA (BEAKER) (test jyij=787) Moderate AMORPHOUS CRYSTALS (BEAKER) (test smex=8569) Few RBC UA-MANUAL (BEAKER) (test bnne=6669) None Seen /HPF WBC UA-MANUAL (BEAKER) (test dqab=4177) <5 /HPF SQUAMOUS EPITHELIAL MANUAL (BEAKER) (test <5 /HPF zzre=7907) SOURCE(BEAKER) (test rwvk=5251) B-TYPE NATRIURETIC FACTOR (BNP)2019-09-10 09:46:00 Test Item Value Reference Range Comments B-TYPE NATRIURETIC PEPTIDE (BEAKER) (test 196 pg/mL 0-100 vnjr=137) HEMOGLOBIN [id number] 09:18:00 Test Item Value Reference Range Comments HEMOGLOBIN A1C (BEAKER) (test gmzu=694) 8.0 % 4.3-6.1 RAD, CHEST, 1 VIEW, NON [id number] 09:04:00Reason for exam:-> pneumoniaShould this be performed at the bedside?->YesFINAL REPORT Chest, 1 view, 09/10/2019 8:17 AM. History: Pneumonia. Comparison : Outside chest x-ray 09/08/2019. Discussion: The cardiomediastinal silhouette and pulmonary vasculature are within normal limits for a portable exam. Patchy left basilar consolidation is present, decreased compared to prior exam. Right upper extremity PICC is unchanged in position. The soft tissuesand osseous structures are intact. IMPRESSION: Decreased left basilar consolidation. Signed : Jameel Rascon [facility]Repliber[facility] Verified Date/Time: 09/10/2019 09:04:23 Reading Location: [facility] Radiology Reading Room CBC W/PLT COUNT & AUTO [id number] 09:03:00 Test Item Value Reference Range Comments WHITE BLOOD CELL COUNT (BEAKER) (test ynfb=926) 3.5 K/ L 4.0-10.0 RED BLOOD CELL COUNT (BEAKER) (test ebge=675) 3.67 M/ L 4.20-5.80 HEMOGLOBIN (BEAKER) (test gseh=524) 10.9 GM/DL 13.0-16.8 HEMATOCRIT (BEAKER) (test qaqh=023) 33.2 % 36.0-50.0 MEAN CORPUSCULAR VOLUME (BEAKER) (test ztsm=344) 90.5 fL 82.0-99.0 MEAN CORPUSCULAR HEMOGLOBIN (BEAKER) (test 29.7 pg 27.0-33.0 zaes=858) MEAN CORPUSCULAR HEMOGLOBIN CONC (BEAKER) (test 32.8 GM/DL 32.0-36.0 ulpy=244) RED CELL DISTRIBUTION WIDTH (BEAKER) (test 13.0 % 12.0-15.0 byok=633) PLATELET COUNT (BEAKER) (test hxgr=608) 139 K/CU MM 150-430 MEAN PLATELET VOLUME (BEAKER) (test nadu=057) 10.9 fL 6.0-11.5 NEUTROPHILS RELATIVE PERCENT (BEAKER) (test 48 % mqgy=783) LYMPHOCYTES RELATIVE PERCENT (BEAKER) (test 27 % zjiy=706) MONOCYTES RELATIVE PERCENT (BEAKER) (test 16 % nflf=218) EOSINOPHILS RELATIVE PERCENT (BEAKER) (test 8 % larw=236) BASOPHILS RELATIVE PERCENT (BEAKER) (test 1 % pysg=979) NEUTROPHILS ABSOLUTE COUNT (BEAKER) (test 1.69 K/ L 1.80-8.00 dqwg=388) LYMPHOCYTES ABSOLUTE COUNT (BEAKER) (test 0.97 K/ L 1.48-4.50 ctcz=226) MONOCYTES ABSOLUTE COUNT (BEAKER) (test 0.57 K/ L 0.00-1.30 pokj=748) EOSINOPHILS ABSOLUTE COUNT (BEAKER) (test 0.27 K/ L 0.00-0.50 wkgn=757) BASOPHILS ABSOLUTE COUNT (BEAKER) (test 0.03 K/ L 0.00-0.20 lbis=015)
--- NOTE | 2019-11-19 16:21 | ER ---
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 Pt unable to get prescription meds. Pt with Hx of Diabetes and HTN. Pt C/O right calf pain and swelling, infected wound and foul smelling odor on operative site. Coronavirus screen: The patient has NOT traveled to a country currently being monitored by the [facility] within the last 14 days. Ebola Screen: Patient negative for fever greater than or equal to 101.5 degrees Fahrenheit, and additional compatible Ebola Virus Disease symptoms Patient denies exposure to infectious person. Initial Sepsis Screen: Does the patient meet any 2 criteria? No. Patient's initial sepsis screen is negative. Does the patient have a suspected source of infection? Yes: Skin breakdown/wound. Risk Assessment: Do you want to hurt yourself or someone else? Patient reports no desire to harm self or others. 15:22 Method Of Arrival: EMS: [facility] 15:22 Acuity: KIRSTY 3 15:28 Onset of symptoms is unknown. 15:28 Care prior to arrival: IV initiated. 20 GA, in the left antecubital area, Glucose check: 391. Historical: - Allergies: 15:25 No Known Allergies; - PMHx: 15:25 Anxiety; Diabetes - IDDM; Hypertension; Myocardial infarction; Pancreatitis; - PSHx: 15:25 Appendectomy; - Immunization history:: Adult Immunizations not up to date. - Social history:: Smoking status: Patient/guardian denies using. Screenin:26 Abuse screen: Denies threats or abuse. Denies injuries from another. Nutritional screening: No deficits noted. Tuberculosis screening: No symptoms or risk factors identified. Fall Risk None identified. Assessment: 15:26 General: Appears in no apparent distress. Behavior is calm, cooperative, appropriate for age. Pain: Complains of pain in right leg Pain does not radiate. Pain currently is 5 out of 10 on a pain scale. Quality of pain is described as tender. Neuro: Level of Consciousness is awake, alert, obeys commands, Oriented to person, place, time, situation, Appropriate for age. Cardiovascular: Heart tones S1 S2. Respiratory: Airway is patent Respiratory effort is even, unlabored, Respiratory pattern is regular, symmetrical, Breath sounds are clear bilaterally. GI: Abdomen is flat, non-distended. : No signs and/or symptoms were reported regarding the genitourinary system. EENT: No signs and/or symptoms were reported regarding the EENT system. Derm: Wound noted right foot. Musculoskeletal: Circulation, motion, and sensation intact. 17:05 Reassessment: Patient appears in no apparent distress at this time. No changes from previously documented assessment. Patient and/or family updated on plan of care and expected duration. Pain level reassessed. Patient is alert, oriented x 3, equal unlabored respirations, skin warm/dry/pink. 18:25 Reassessment: Patient appears in no apparent distress at this time. No changes from previously documented assessment. Patient and/or family updated on plan of care and expected duration. Pain level reassessed. Patient is alert, oriented x 3, equal unlabored respirations, skin warm/dry/pink. Dr Camara at bedside explaining POC need for admit. 19:52 General: Appears in no apparent distress. uncomfortable, Behavior is calm, cooperative, jd3 appropriate for age. Pain: Complains of pain in right foot and right leg Pain does not radiate. Quality of pain is described as aching, tender. Neuro: Level of Consciousness is awake, alert, obeys commands, Oriented to person, place, time, situation. Cardiovascular: Denies chest pain, Capillary refill < 3 seconds Patient's skin is warm and dry. Respiratory: Airway is patent Respiratory effort is even, unlabored, Respiratory pattern is regular, symmetrical, Denies cough, shortness of breath. GI: No signs and/or symptoms were reported involving the gastrointestinal system. Abdomen is flat, non-distended. : No signs and/or symptoms were reported regarding the genitourinary system. EENT: No signs and/or symptoms were reported regarding the EENT system. Derm: Skin is intact, Skin is dry, Skin is normal, Skin temperature is warm. Musculoskeletal: Amputation of red and swollen with green exudate throughout surgical amputation site Circulation, motion, and sensation intact. Range of motion: intact in all extremities. 19:55 Reassessment: Patient appears in no apparent distress at this time. No changes from previously documented assessment. Patient and/or family updated on plan of care and expected duration. Pain level reassessed. Patient is alert, oriented x 3, equal unlabored respirations, skin warm/dry/pink. Patient states feeling better. 20:50 Reassessment: Patient appears in no apparent distress at this time. No changes from [facility] previously documented assessment. Patient and/or family updated on plan of care and expected duration. Pain level reassessed. Patient is alert, oriented x 3, equal unlabored respirations, skin warm/dry/pink. awaiting room assignment. 22:07 Reassessment: Patient appears in no apparent distress at this time. Patient and/or jd3 family updated on plan of care and expected duration. Pain level reassessed. Patient is alert, oriented x 3, equal unlabored respirations, skin warm/dry/pink. awaiting room assignment. Patient states feeling better. 22:36 Reassessment: Patient appears in no apparent distress at this time. Patient and/or jd3 family updated on plan of care and expected duration. Pain level reassessed. Patient is alert, oriented x 3, equal unlabored respirations, skin warm/dry/pink. report given to Ruma GARCIA. Vital Signs: 15:22 BP 187 / 97; Pulse 90; Resp 18; Temp 98.2; Pulse Ox 100% ; Weight 86.18 kg; Height 5 wh ft. 11 in. (180.34 cm); Pain 4/10; 16:00 BP 185 / 97; Pulse 89; Resp 18; Pulse Ox 100% on R/A; 18:00 BP 164 / 95; Pulse 76; Resp 18; Pulse Ox 100% on R/A; 19:00 BP 178 / 94; Pulse 72; Resp 18; Pulse Ox 100% on R/A; 20:00 BP 150 / 77; Pulse 72; Resp 18; Pulse Ox 98% on R/A; 22:07 BP 152 / 60; Pulse 76; Resp 17 S; Pulse Ox 100% on R/A; [facility] 15:22 Body Mass Index 26.50 (86.18 kg, 180.34 cm) ED Course: 15:19 Patient arrived in ED. 15:22 Amada Menendez is Primary Nurse. 15:23 Nancy [facility]camp[facility]-C [facility]. snw 15:23 Gentry Franklin MD is Attending Physician. snw 15:24 Triage completed. wh 15:27 Arm band placed on right wrist. 15:28 Patient has correct armband on for positive identification. Bed in low position. Call light in reach. Side rails up X 1. Pulse ox on. NIBP on. 16:11 Alphonse Luther DO is Hospitalizing Provider. snw 17:04 Chest Single View XRAY In Process Unspecified. EDMS 17:04 Foot Right 3 View XRAY In Process Unspecified. EDMS 22:37 No provider procedures requiring assistance completed. Patient admitted, IV remains in jd3 place. Administered Medications: 16:24 Drug: morphine 4 mg {Note: RASS 0.} Route: IVP; Site: right antecubital; 18:21 Follow up: Response: No adverse reaction; Pain is decreased; RASS: Alert and Calm (0) 16:26 Drug: Zofran (Ondansetron) 4 mg Route: IVP; Site: right antecubital; 18:21 Follow up: Response: No adverse reaction; Nausea is decreased 16:50 Drug: Clindamycin 600 mg Route: IVPB; Infused Over: 30 mins; Site: right antecubital; 18:21 Follow up: Response: No adverse reaction; IV Status: Completed infusion 17:44 Drug: vancoMYCIN 1.5 grams Route: IVPB; Infused Over: 2 hrs; Site: right antecubital; 20:12 Follow up: Response: No adverse reaction; IV Status: Completed infusion; IV Intake: jd3 500ml 18:21 Drug: NS 0.9% 500 ml Route: IV; Rate: bolus; Site: left antecubital; 19:08 Follow up: Response: No adverse reaction; IV Status: Completed infusion 19:00 Drug: fentaNYL (PF) 25 mcg {Note: RASS 0.} Route: IVP; Site: left antecubital; 20:02 Follow up: Response: No adverse reaction; Pain is decreased; RASS: Alert and Calm (0) 19:52 Drug: NS 0.9% 1000 ml Route: IV; Rate: 125 ml/hr; Site: right antecubital; jd3 20:50 Follow up: Response: No adverse reaction; IV Status: Infusion continued upon admission jd3 Intake: 20:12 IV: 500ml; Total: 500ml. jd3 Outcome: 16:16 Decision to Hospitalize by Provider. snw 22:37 Admitted to Med/surg accompanied by tech, via stretcher, room 415, with chart, Report jd3 called to Ruma GARCIA 22:37 Condition: stable 22:37 Instructed on the need for admit, Demonstrated understanding of instructions. 22:43 Patient left the ED. jd3 Signatures: Dispatcher [employer] EDMS Nancy Ocampo, SCRAP METAL PROCESSING WORKER-C SCRAP METAL PROCESSING WORKER-CsnAmada Bernal Jonathon RN RN jd3 Corrections: (The following items were deleted from the chart) 15:26 15:22 Chief complaint: EMS states: Pt with Hx of left middle toe amputation back in July. Pt unable to get prescription meds. Pt with Hx of Diabetes and HTN. Pt C/O left calf pain and swelling, infected wound and foul smelling odor on operative site.
--- NOTE | 2019-11-19 16:22 | EDPHYS ---
Physician Documentation [facility] Name: Matt Izquierdo Age: 69 yrs Sex: Male : 1950 Arrival Date: 11/19/2019 Time: 15:19 Bed 27 Private MD: ED Physician Gentry Franklin HPI: 11/18 15:50 This 69 yrs old Male presents to ER via EMS with complaints of Wound snw Infection. 15:50 Onset: The symptoms/episode began/occurred gradually, 3 day(s) ago, and became worse snw and became persistent. Associated signs and symptoms: Pertinent positives: wound odor, infection. Modifying factors: The patient symptoms are alleviated by nothing. The patient has experienced a previous episode. It is unknown whether or not the patient has recently seen a physician. Historical: - Allergies: 15:25 No Known Allergies; wh - PMHx: 15:25 Anxiety; Diabetes - IDDM; Hypertension; Myocardial infarction; Pancreatitis; wh - PSHx: 15:25 Appendectomy; wh - Immunization history:: Adult Immunizations not up to date. - Social history:: Smoking status: Patient/guardian denies using. ROS: 15:49 Constitutional: Negative for fever, chills, and weight loss, Eyes: Negative for injury, snw pain, redness, and discharge, ENT: Negative for injury, pain, and discharge, Neck: Negative for injury, pain, and swelling, Cardiovascular: Negative for chest pain, palpitations, and edema, Respiratory: Negative for shortness of breath, cough, wheezing, and pleuritic chest pain, Abdomen/GI: Negative for abdominal pain, nausea, vomiting, diarrhea, and constipation, Back: Negative for injury and pain, : Negative for injury, bleeding, discharge, and swelling, Skin: Negative for injury, rash, and discoloration, Neuro: Negative for headache, weakness, numbness, tingling, and seizure, Psych: Negative for depression, anxiety, suicide ideation, homicidal ideation, and hallucinations. 15:49 MS/extremity: Positive for swelling, tenderness, infection to right second toe/foot. Exam: 15:46 Constitutional: This is a well developed, well nourished patient who is awake, alert, snw and in no acute distress. Head/Face: Normocephalic, atraumatic. Eyes: Pupils equal round and reactive to light, extra-ocular motions intact. Lids and lashes normal. Conjunctiva and sclera are non-icteric and not injected. Cornea within normal limits. Periorbital areas with no swelling, redness, or edema. ENT: Nares patent. No nasal discharge, no septal abnormalities noted. Tympanic membranes are normal and external auditory canals are clear. Oropharynx with no redness, swelling, or masses, exudates, or evidence of obstruction, uvula midline. Mucous membranes moist. Neck: Trachea midline, no thyromegaly or masses palpated, and no cervical lymphadenopathy. Supple, full range of motion without nuchal rigidity, or vertebral point tenderness. No Meningismus. Chest/axilla: Normal chest wall appearance and motion. Nontender with no deformity. No lesions are appreciated. Cardiovascular: Regular rate and rhythm with a normal S1 and S2. No gallops, murmurs, or rubs. Normal PMI, no JVD. No pulse deficits. Respiratory: Lungs have equal breath sounds bilaterally, clear to auscultation and percussion. No rales, rhonchi or wheezes noted. No increased work of breathing, no retractions or nasal flaring. Abdomen/GI: Soft, non-tender, with normal bowel sounds. No distension or tympany. No guarding or rebound. No evidence of tenderness throughout. Back: No spinal tenderness. No costovertebral tenderness. Full range of motion. Neuro: Awake and alert, GCS 15, oriented to person, place, time, and situation. Cranial nerves II-XII grossly intact. Motor strength 5/5 in all extremities. Sensory grossly intact. Cerebellar exam normal. Normal gait. Psych: Awake, alert, with orientation to person, place and time. Behavior, mood, and affect are within normal limits. 15:46 Musculoskeletal/extremity: gangrenous odor to right foot wound, recent right third toe amputation. Pt was hospitalized x 2.5 months in OR, Inpatient, and rehab (three different facilities). Arrives today with red, edematous second toe with surgical site with gangrenous odor and green dc with surrounding erythema. 15:46 Skin: Appearance: normal except for affected area, lesion(s), located on the right foot/second toe. Vital Signs: 15:22 BP 187 / 97; Pulse 90; Resp 18; Temp 98.2; Pulse Ox 100% ; Weight 86.18 kg; Height 5 wh ft. 11 in. (180.34 cm); Pain 4/10; 16:00 BP 185 / 97; Pulse 89; Resp 18; Pulse Ox 100% on R/A; wh 18:00 BP 164 / 95; Pulse 76; Resp 18; Pulse Ox 100% on R/A; wh 19:00 BP 178 / 94; Pulse 72; Resp 18; Pulse Ox 100% on R/A; wh 20:00 BP 150 / 77; Pulse 72; Resp 18; Pulse Ox 98% on R/A; wh 22:07 BP 152 / 60; Pulse 76; Resp 17 S; Pulse Ox 100% on R/A; jd3 15:22 Body Mass Index 26.50 (86.18 kg, 180.34 cm) wh MDM: 15:30 Patient medically screened. snw 16:16 Data reviewed: vital signs, nurses notes. Data interpreted: Pulse oximetry: is 100 %. snw Interpretation: normal. Counseling: I had a detailed discussion with the patient and/or guardian regarding: the presence of at least one elevated blood pressure reading (>120/80) during this emergency department visit, lab results, radiology results, the need for further work-up and treatment in the hospital. Physician consultation: Alphonse Luther DO was called at 16:18, was contacted at 16:18, regarding admission, to the telemetry unit. and will see patient in ED. 11/18 15:30 Order name: Wound Culture [facility] 11/18 15:30 Order name: T\T\S; Complete Time: 19:44 [facility] 11/18 15:30 Order name: Basic Metabolic Panel; Complete Time: 18:04 [facility] 11/18 15:30 Order name: Blood Culture Adult (2) [facility] 11/18 15:30 Order name: CBC with Diff; Complete Time: 17:58 sn 11/18 15:30 Order name: CPK; Complete Time: 18:04 [facility] 11/18 15:30 Order name: Lactate; Complete Time: 17:02 [facility] 11/18 15:30 Order name: LFT's; Complete Time: 18:04 [facility] 11/18 15:30 Order name: Lipase; Complete Time: 18:08 [facility] 11/18 15:30 Order name: Procalcitonin; Complete Time: 18:08 snw 11/18 15:30 Order name: Protime (+inr); Complete Time: 17:58 snw 11/18 15:30 Order name: Ptt, Activated; Complete Time: 17:58 snw 11/18 17:45 Order name: Glucose, Ancillary Testing; Complete Time: 17:45 EDMS 11/18 19:01 Order name: Chem 7 11/18 15:30 Order name: Chest Single View XRAY; Complete Time: 17:45 snw 11/18 15:30 Order name: Accucheck; Complete Time: 17:25 snw 11/18 15:37 Order name: Foot Right 3 View XRAY; Complete Time: 17:19 snw 11/18 18:48 Order name: CONS Physician Consult EDKS 11/18 19:01 Order name: LFT's 11/18 19:17 Order name: Urine Dipstick--Ancillary (enter results) ct 11/18 20:04 Order name: Basic Metabolic Panel; Complete Time: 07:10 EDMS 11/18 20:04 Order name: Liver (Hepatic) Function; Complete Time: 07:10 EDMS 11/18 20:48 Order name: Urine Dipstick-Ancillary; Complete Time: 20:57 EDMS 11/18 15:30 Order name: Cardiac monitoring; Complete Time: 17:25 snw 11/18 15:30 Order name: EKG - Nurse/Tech; Complete Time: 17:25 snw 11/18 15:30 Order name: IV Saline Lock - Large Bore; Complete Time: 17:26 snw 11/18 15:30 Order name: Labs collected and sent; Complete Time: 17:26 snw 11/18 15:30 Order name: O2 Per Protocol; Complete Time: 17:26 snw 11/18 15:30 Order name: O2 Sat Monitoring; Complete Time: 17:26 snw 11/18 15:30 Order name: Urine Dipstick-Ancillary (obtain specimen); Complete Time: 19:01 snw 11/18 16:31 Order name: Labs - recollect needed: recollect type and screen; Complete Time: 17:25 bd 11/18 16:43 Order name: Labs - recollect needed: recollect all the remaining labs; Complete Time: bd 17:11/18 18:10 Order name: Misc. Order: repeat Chem 7 and LFTs post NS bolus; Complete Time: 19:08 snw EC:40 Rate is 78 beats/min. Rhythm is regular. QRS [place] is Normal. CA interval is normal. QRS snw interval is normal. QT interval is normal. Clinical impression: NSR w/ Non-specific ST/T Changes. Administered Medications: 16:24 Drug: morphine 4 mg {Note: RASS 0.} Route: IVP; Site: right antecubital; 18:21 Follow up: Response: No adverse reaction; Pain is decreased; RASS: Alert and Calm (0) 16:26 Drug: Zofran (Ondansetron) 4 mg Route: IVP; Site: right antecubital; 18:21 Follow up: Response: No adverse reaction; Nausea is decreased 16:50 Drug: Clindamycin 600 mg Route: IVPB; Infused Over: 30 mins; Site: right antecubital; 18:21 Follow up: Response: No adverse reaction; IV Status: Completed infusion 17:44 Drug: vancoMYCIN 1.5 grams Route: IVPB; Infused Over: 2 hrs; Site: right antecubital; 20:12 Follow up: Response: No adverse reaction; IV Status: Completed infusion; IV Intake: jd3 500ml 18:21 Drug: NS 0.9% 500 ml Route: IV; Rate: bolus; Site: left antecubital; 19:08 Follow up: Response: No adverse reaction; IV Status: Completed infusion 19:00 Drug: fentaNYL (PF) 25 mcg {Note: RASS 0.} Route: IVP; Site: left antecubital; 20:02 Follow up: Response: No adverse reaction; Pain is decreased; RASS: Alert and Calm (0) 19:52 Drug: NS 0.9% 1000 ml Route: IV; Rate: 125 ml/hr; Site: right antecubital; [facility] 20:50 Follow up: Response: No adverse reaction; IV Status: Infusion continued upon admission jd3 Disposition: 11/19 07:02 Co-signature as Attending Physician, Gentry Franklin MD. rn Disposition: 11/19/19 16:16 Hospitalization ordered by Alphonse Luther for Inpatient Admission. Preliminary diagnosis are Osteomyelitis, unspecified, Cellulitis of right lower limb. - Bed requested for Telemetry/MedSurg (Inpatient). - Status is Inpatient Admission. jd3 - Condition is Stable. - Problem is an acute exacerbation. - Symptoms have worsened. Signatures: Dispatcher [employer] EDMS Solange Silva Shelly, ENTERPRISE SYSTEMS ADMINISTRATOR-C ENTERPRISE SYSTEMS ADMINISTRATOR-Csnw Gentry Franklin MD MD rn Roszak, Josh, TAVON PA [id number] Lady Badillo RN RN tl1 Amada Menendez Jonathon, RN RN jd3 Corrections: (The following items were deleted from the chart) 11/18 22:16 16:16 Hospitalization Ordered by Alphonse Luther DO for Inpatient Admission. Preliminary tl1 diagnosis is Osteomyelitis, unspecified; Cellulitis of right lower limb. Bed requested for Telemetry/MedSurg (Inpatient). Status is Inpatient Admission. Condition is Stable. Problem is an acute exacerbation. Symptoms have worsened. snw 22:43 22:16 11/19/2019 16:16 Hospitalization Ordered by Alphonse Luther DO for Inpatient jd3 Admission. Preliminary diagnosis is Osteomyelitis, unspecified; Cellulitis of right lower limb. Bed requested for Telemetry/MedSurg (Inpatient). Status is Inpatient Admission. Condition is Stable. Problem is an acute exacerbation. Symptoms have worsened. tl1
[2019-11-19] MEDS ORDERED: MORPHINE 4 MG/ML SYR ONE (16:25)
[2019-11-19] MEDS ORDERED: ONDANSETRON 4 MG/2 ML VIAL ONE (16:25)
--- NOTE | 2019-11-19 17:09 | RAD REPORT ---
EXAM DESCRIPTION: RAD - Foot Right 3 View - 11/19/2019 5:01 pm CLINICAL HISTORY: Right foot pain FINDINGS: Partial amputation third metatarsal. Lucency surrounds the amputation site which may indic ate osteomyelitis Bones are osteoporotic. No fracture
[2019-11-19] MEDS ORDERED: CLINDAMYCIN 600MG/D5W 600 MG/50 ML BAG IV ONE (17:23)
--- NOTE | 2019-11-19 17:39 | RAD REPORT ---
EXAM DESCRIPTION: Korey Single View11/19/2019 5:01 pm CLINICAL HISTORY: Hypertension/preop for foot surgery COMPARISON: 2017 FINDINGS: The lungs appear clear of acute infiltrate. The heart is borderline enlarged. Chronic elevation left hemidiaphragm
[2019-11-19 17:40] LABS: Protime INR 1.36
[2019-11-19] MEDS ORDERED: VANCOMYCIN 1 GM/VIAL ONE (17:43)
[2019-11-19] MEDS ORDERED: NA CHLORIDE 0.9% 500 ML ONE ×2 (17:43→18:20)
[2019-11-19 17:53] LABS: Basophils % 0.5 % (0-1.3); Hematocrit 34.7 % (39.6-49.0); Lymphocytes % 10.1 % (15.3-44.8); RBC Red Blood Cell Count 3.96 M/uL (4.33-5.43)
--- NOTE | 2019-11-19 18:58 | P.HP ---
Certification for Inpatient Patient admitted to: Inpatient With expected LOS: >2 Midnights Patient will require the following post-hospital care: None Practitioner: I am a practitioner with admitting privileges, knowledge of patient current condition, hospital course, and medical plan of care. Services: Services provided to patient in accordance with Admission requirements found in Title 42 Section 412.3 of the Code of Federal Regulations <Shane Burroughs - Last Filed: 11/19/19 18:53> Patient History Date of Service: 11/19/19 Primary Care Provider: None Reason for admission: Cellulitis right foot, Osteomyelitis, Open wound History of Present Illness: This is a 69-year-old male with a history of insulin-dependent diabetes mellitus , hypertension, myocardial infarction, osteomyelitis that is non compliant with any medicines currently secondary to financial constraints. Back in July of this past year patient stated that he had his 3rd toe amputated on is right foot secondary to osteomyelitis. Since then has never had a completely healed wound on that foot from the surgical site. Stated that over the past several days to month it has been getting worse and now to the point were is having foul -smelling discharge along with redness and increase in pain. Came to the emergency room today because he could no longer bear the pain. Denies any fever or chills. Original surgery was at [facility]. Patient was further evaluated in in the emergency room and was decided to admit at that time secondary to the findings of his foot. Patient not septic at this time. Patient will be admitted for surgery consult an for medicine for further management of his comorbid conditions. Home medications list reviewed: Yes - Past Medical/Surgical History Has patient received pneumonia vaccine in the past: No Diabetic: Yes -: Hypertension -: DM -: Cardiac Stents - Social History Smoking Status: Never smoker Smoking therapy provided: No Alcohol use: No CD- Drugs: No Caffeine use: Yes Place of Residence: Home <Shane Burroughs - Last Filed: 11/19/19 18:53> Date of Service: 11/20/19 <Yessica Camara - Last Filed: 11/20/19 14:23> Allergies No Known Allergies Allergy (Unverified 12/18/15 19:47) Home Medications: NK [No Home Meds] 11/20/19 Review of Systems General: As per HPI Eyes: Unremarkable ENT: Unremarkable Respiratory: Unremarkable Cardiovascular: Unremarkable Gastrointestinal: Unremarkable Musculoskeletal: As per HPI Integumentary: As per HPI Neurological: Unremarkable Lymphatics: Unremarkable <Shane Burroughs - Last Filed: 11/19/19 18:53> Physical Examination - Vital Signs Temperature: 98.2 F Blood Pressure: 187/97 Pulse: 90 Respirations: 18 Pulse Ox (%): 100 - Physical Exam General: Alert, Oriented x3, Mild distress HEENT: Normocephalic, PERRLA, EOMI Neck: Supple, 2+ carotid pulse no bruit, JVD not distended Respiratory: Clear to auscultation bilaterally, Normal air movement Cardiovascular: No edema, Normal pulses, Regular rate/rhythm, Normal S1 S2, No gallops, No rubs, No murmurs Capillary refill: <2 Seconds Gastrointestinal: Normal bowel sounds, Soft and benign, Non-distended, No ascites, No tenderness, No masses, No rebound, No guarding Musculoskeletal: No clubbing, No swelling, No contractures Integumentary: Other (Patient has approximately 7.5 cm in length open wound where the 3rd toe of the right foot should be. Foul-smelling discharge that is prelim gangrene noted. Surrounding erythema also. No streaking of the leg.) Neurological: Normal speech, Normal strength at 5/5 x4 extr, Normal tone, Sensation intact, Cranial nerves 3-12 intact, Normal reflexes 2+, Normal affect Lymphatics: No axilla or inguinal lymphadenopathy - Studies Laboratory Data (last 24 hrs) 11/19/19 16:55: PT 15.9 H, INR 1.36, APTT 24.6 11/19/19 16:55: Sodium 117 L*, Potassium 4.8, BUN 14, Creatinine 0.62, Glucose 106, Total Bilirubin 7.3 H*, AST 47 H, ALT 30, Alkaline Phosphatase 131 H, Lipase 230 11/19/19 16:10: WBC 9.4, Hgb 11.7 L, Hct 34.7 L, Plt Count 287 <Shane Burroughs - Last Filed: 11/19/19 18:53> - Studies Laboratory Data (last 24 hrs) 11/19/19 16:55: PT 15.9 H, INR 1.36, APTT 24.6 11/19/19 16:55: Sodium Cancelled, Potassium Cancelled, BUN Cancelled, Creatinine Cancelled, Glucose Cancelled, Total Bilirubin Cancelled, AST Cancelled, ALT Cancelled, Alkaline Phosphatase Cancelled, Lipase Cancelled 11/19/19 16:10: WBC 9.4, Hgb 11.7 L, Hct 34.7 L, Plt Count 287 <Yessica aCmara - Last Filed: 11/20/19 14:23> Assessment and Plan - Problems (Diagnosis) (1) Diabetes mellitus Current Visit: Yes Status: Chronic Qualifiers: Diabetes mellitus type: type 2 Diabetes mellitus terminal supervisor insulin use: with half-way use Diabetes mellitus complication status: with skin complications Diabetes mellitus complication detail: with other skin complication Qualified Code(s): E11.628 - Type 2 diabetes mellitus with other skin complications; Z79.4 - [facility] (current) use of insulin (2) Hypertension Current Visit: Yes Status: Chronic Qualifiers: Hypertension type: essential hypertension Qualified Code(s): I10 - Essential (primary) hypertension (3) Cellulitis of foot, right Current Visit: Yes Status: Acute (4) Open wound of foot Current Visit: Yes Status: Chronic Qualifiers: Encounter type: subsequent encounter Laterality: right Qualified Code(s) : S91.301D - Unspecified open wound, right foot, subsequent encounter (5) Osteomyelitis Current Visit: No Status: Acute Qualifiers: Osteomyelitis type: unspecified type Osteomyelitis location: foot Laterality: right Qualified Code(s): M86.9 - Osteomyelitis, unspecified - Plan Patient will be admitted to telemetry for continuous IV antibiotics along with fluid hydration and management of his hypertension and diabetes mellitus. General surgery will be consulted for the open wound of his right foot for possible surgical debridement and or amputation. Infectious disease will also be consulted for osteomyelitis pending MRI tomorrow. Discharge Plan: Home Plan to discharge in: Greater than 2 days - Advance Directives Does patient have a Living Will: No Does patient have a Durable POA for Healthcare: No - Code Status/Comfort Care Code Status Assessed: Yes Code Status: Full Code Critical Care: No Time Spent Managing Pts Care (In Minutes): 45 <Shane Burroughs - Last Filed: 11/19/19 18:53> Physician Review: Patient Assessed, Agree with Above Assessment and Plan Physician Review Additional Text: Case discussed w PA. Chart reviewed <Jax,Salman - Last Filed: 11/20/19 14:23>
[2019-11-19] MEDS ORDERED: FENTANYL CITR 100 MCG/2 ML ONE (19:00)
[2019-11-19] MEDS ORDERED: NA CHLORIDE 0.9% 1,000 ML ONE (19:52)
[2019-11-19 19:55] LABS: ALT/SGPT 9 U/L (12-78); AST/SGOT 10 U/L (15-37); Albumin 2.2 g/dL (3.4-5.0); Alkaline Phosphatase 80 U/L (45-117); BUN Blood Urea Nitrogen 50 mg/dL (7-18); Bicarbonate 23 mmol/L (21-32); Bilirubin Direct < 0.1 mg/dL (0-0.2); Bilirubin Total 0.5 mg/dL (0.2-1.0); Glucose Level 275 mg/dL (74-106); Potassium 4.3 mmol/L (3.5-5.1); Protein, Total 7.1 g/dL (6.4-8.2); Sodium Level 137 mmol/L (136-145)
[2019-11-19 20:47] LABS: Urine Blood 2+ (NEG); Urine Glucose 2+ (NEG); Urine Protein 3+ (NEG); Urine Specific Gravity >1.030 (1.005-1.030); Urine pH 5.5 (5.0-7.0)
[2019-11-19] MEDS ORDERED: GLUCAGON 1 MG/VIAL IM PRN (23:05)
[2019-11-19] MEDS ORDERED: HYDRALAZINE HCL 20 MG/ML VIAL IV PRN (23:05)
[2019-11-19] MEDS: NA CHLORIDE 0.9% 1,000 ML IV SCH (23:05)
[2019-11-19] MEDS ORDERED: D50W 25 GM/50 ML SYRINGE IV PRN (23:05)
[2019-11-19] MEDS ORDERED: ACETAMINOPHEN 500 MG TAB PO PRN (23:05)
[2019-11-19] MEDS ORDERED: VANCOMYCIN/NS 1 gm 1 GM/250 ML BAG IVPB SCH (23:05)
[2019-11-19] MEDS: INSULIN -REGULAR HUMAN 50 UNIT/0.5 ML ML SQ SCH (23:15)
[2019-11-20] MEDS: MORPHINE 4 MG/ML SYR IV PRN (00:25)
[2019-11-20] MEDS: GABAPENTIN 300 MG CAP PO SCH ×4 (00:25→20:33)
[2019-11-20] MEDS ORDERED: CEFEPIME 1 GM/VIAL IV SCH (01:00)
[2019-11-20] MEDS: ONDANSETRON 4 MG/2 ML VIAL IV PRN ×3 (01:40→19:21)
[2019-11-20 02:34] VITALS: BMI 26.6
[2019-11-20] MEDS ORDERED: cloNIDine HCL 0.1 MG TAB PO ONE (02:38)
[2019-11-20 04:23] LABS: Absolute Lymphocytes (CBC) 0.9 K/uL (0.7-4.9); Basophils % 0.8 % (0-1.3); Hematocrit 32.1 % (39.6-49.0); Lymphocytes % 11.7 % (15.3-44.8); MPV 8.6 fL (7.6-11.3); RBC Red Blood Cell Count 3.68 M/uL (4.33-5.43)
[2019-11-20] MEDS: NA CHLORIDE 0.9% 1,000 ML IV SCH ×3 (05:34→23:44)
[2019-11-20] MEDS: METOPROLOL TAR 25 MG TAB PO SCH ×2 (05:36→17:10)
[2019-11-20] MEDS: AMLODIPINE 10 MG TAB PO SCH ×2 (05:38→08:52)
[2019-11-20] MEDS: INSULIN -REGULAR HUMAN 50 UNIT/0.5 ML ML SQ SCH ×4 (08:53→20:32)
--- NOTE | 2019-11-20 12:14 | EKG ---
Test Date: 2019-11-19 Test Time: 16:34:19 Vice President Medical Affairs: NOÉ MEASUREMENT RESULTS: Intervals: Rate: 78 AL: 190 QRSD: 94 QT: 382 QTc: 435 [place]: P: 15 AL: 190 QRS: -29 T: 61 INTERPRETIVE STATEMENTS: Normal sinus rhythm Minimal voltage criteria for LVH, may be normal variant Septal infarct, age undetermined Abnormal ECG Compared to ECG 12/18/2015 15:22:01 Left ventricular hypertrophy now present Myocardial infarct finding still present Electronically Signed On 11-20-19 12:13:31 CDT by Tobin Kolb
--- NOTE | 2019-11-20 13:02 | P.PN ---
Subjective Date of Service: 11/20/19 Primary Care Provider: None Chief Complaint: Cellulitis right foot, Osteomyelitis, Open wound Subjective: C/O voiced (nausea and epigastric pain) Review of Systems Gastrointestinal: Nausea, Vomiting, Abdominal Pain Musculoskeletal: Foot Pain Integumentary: Rash Neurological: Weakness Physical Examination - Vital Signs Temperature: 97.1 F Blood Pressure: 113/68 Pulse: 60 Respirations: 14 Pulse Ox (%): 100 - Physical Exam General: Alert, Oriented x3, Mild distress (pain ) HEENT: Atraumatic, Normocephalic Neck: Supple, 2+ carotid pulse no bruit, JVD not distended Respiratory: Clear to auscultation bilaterally, Normal air movement Cardiovascular: Normal pulses, Regular rate/rhythm, Normal S1 S2 Gastrointestinal: Normal bowel sounds, Soft and benign, Non-distended, Tenderness (epigastric ) Musculoskeletal: Other (dsg over right foot ) Integumentary: Skin breakdown Neurological: Normal speech, Normal strength at 5/5 x4 extr - Studies Laboratory Data (last 24 hrs) 11/19/19 16:55: PT 15.9 H, INR 1.36, APTT 24.6 11/19/19 16:55: Sodium Cancelled, Potassium Cancelled, BUN Cancelled, Creatinine Cancelled, Glucose Cancelled, Total Bilirubin Cancelled, AST Cancelled, ALT Cancelled, Alkaline Phosphatase Cancelled, Lipase Cancelled 11/19/19 16:10: WBC 9.4, Hgb 11.7 L, Hct 34.7 L, Plt Count 287 Laboratory Last Values WBC 8.0 K/uL (4.3-10.9) D 11/20/19 03:32 RBC 3.68 M/uL (4.33-5.43) L 11/20/19 03:32 Hgb 11.1 g/dL (13.6-17.9) L 11/20/19 03:32 Hct 32.1 % (39.6-49.0) L 11/20/19 03:32 MCV 87.2 fL (80-100) 11/20/19 03:32 MCH 30.2 pg (27.0-35.0) 11/20/19 03:32 MCHC 34.6 g/dL (32.0-36.0) 11/20/19 03:32 RDW 15.1 % (12.1-15.2) 11/20/19 03:32 Plt Count 241 K/uL (152-406) 11/20/19 03:32 MPV 8.6 fL (7.6-11.3) 11/20/19 03:32 Neutrophils % 74.7 % (41.7-73.7) H 11/20/19 03:32 Lymphocytes % 11.7 % (15.3-44.8) L 11/20/19 03:32 Monocytes % 11.4 % (3.3-12.3) 11/20/19 03:32 Eosinophils % 1.4 % (0-4.4) 11/20/19 03:32 Basophils % 0.8 % (0-1.3) 11/20/19 03:32 Absolute Neutrophils 5.9 K/uL (1.8-8.0) 11/20/19 03:32 Absolute Lymphocytes 0.9 K/uL (0.7-4.9) 11/20/19 03:32 Absolute Monocytes 0.9 K/uL (0.1-1.3) 11/20/19 03:32 Absolute Eosinophils 0.1 K/uL (0-0.5) 11/20/19 03:32 Absolute Basophils 0.1 K/uL (0-0.5) 11/20/19 03:32 PT 15.9 SECONDS (9.5-12.5) H 11/19/19 16:55 INR 1.36 11/19/19 16:55 APTT 24.6 SECONDS (24.3-36.9) 11/19/19 16:55 Sodium 138 mmol/L (136-145) 11/20/19 03:32 Potassium 4.0 mmol/L (3.5-5.1) 11/20/19 03:32 Chloride 109 mmol/L (98-107) H 11/20/19 03:32 Carbon Dioxide 22 mmol/L (21-32) 11/20/19 03:32 BUN 47 mg/dL (7-18) H 11/20/19 03:32 Creatinine 3.39 mg/dL (0.55-1.3) H 11/20/19 03:32 Estimated GFR 18 mL/min (=/>90) L 11/20/19 03:32 Glucose 209 mg/dL (74-106) H 11/20/19 03:32 POC Glucose 246 mg/dl (65-120) H 11/20/19 11:42 Lactic Acid 2.0 mmol/L (0.4-2.0) 11/19/19 16:10 Calcium 8.3 mg/dL (8.5-10.1) L 11/20/19 03:32 Total Bilirubin 0.5 mg/dL (0.2-1.0) 11/19/19 19:05 Direct Bilirubin < 0.1 mg/dL (0-0.2) 11/19/19 19:05 AST 10 U/L (15-37) L 11/19/19 19:05 ALT 9 U/L (12-78) L 11/19/19 19:05 Alkaline Phosphatase 80 U/L (45-117) 11/19/19 19:05 Creatine Kinase Cancelled 11/19/19 16:55 Serum Total Protein 7.1 g/dL (6.4-8.2) 11/19/19 19:05 Albumin 2.2 g/dL (3.4-5.0) L 11/19/19 19:05 Globulin 4.9 g/dL (2.3-3.5) H 11/19/19 19:05 Albumin/Globulin Ratio 0.4 (1.1-1.8) L 11/19/19 19:05 Lipase Cancelled 11/19/19 16:55 Procalcitonin 0.15 ng/mL (<0.50) 11/19/19 16:55 Urine pH 5.5 (5.0-7.0) 11/19/19 19:17 Ur Specific [place] >1.030 (1.005-1.030) H 11/19/19 19:17 Glucose (UA)(Auto) 2+ (NEG) 11/19/19 19:17 Urine Ketones Negative (NEG) 11/19/19 19:17 Urine Blood 2+ (NEG) H 11/19/19 19:17 Urine Nitrite Negative (NEG) 11/19/19 19:17 Ur Leukocyte Esterase Negative (NEG) 11/19/19 19:17 Urine Total Protein 3+ (NEG) H 11/19/19 19:17 ABO/Rh A NEGATIVE 11/20/19 03:32 Solid Phase Ab Screen Negative 11/19/19 17:20 Medications List Reviewed: Yes Assessment & Plan - Code Status/Comfort Care Code Status Assessed: Yes Physician Review: Patient Assessed, Agree with Above Assessment and Plan Physician Review Additional Text: # Right foot 3rd digit post amputated wound cellulitis - on IV abx with flagyl and Rocephin now - seen by wound team -Dr Headley - 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
[2019-11-20] MEDS ORDERED: SODIUM CHLORIDE 0.9% 10ML INJ IV PRN (13:03)
[2019-11-20] MEDS: SILVER SULFADIAZINE 1% 50 GM TOP SCH (13:55)
[2019-11-20] MEDS: SODIUM HYPOCHLORITE 0.5% 473 ML TOP SCH (13:55)
--- NOTE | 2019-11-20 14:33 | P.CNS ---
Date of Consult: 11/20/19 PC: I was asked to see this 61-year-old male regards to a wound on his right foot. HPC: Patient apparently had a gangrene of the 3rd metatarsal of his right foot. Underwent an amputation. He was sent to LTAC for healing. He shows up down without open wound with possible infection. PMH: Diabetes, hypertension PSHx: Previous amputation SOC: No known allergies SYS REVIEW: No cough, wheeze, shortness of breath. No chest pain or palpitations. O/E awake alert vital signs are stable HEENT: Within normal limits Chest: Chest movement equal bilaterally ABD: Negative LOCO: Has an open wound with chronic granulation tissue in the base of the where he had his 3rd toe on his right foot amputated. There is all granulation tissue, as well as some old dried dressing debride. No evidence of any drainage. DATA: Elevated white count IMPRESSION: X-ray shows nonspecific findings of possible ostia PLAN: Continue wound therapy until MRIs been done. Pending the results term whether not this patient requires further surgeries. When he is discharged he will require home health care, and can be followed up at the wound center.
--- NOTE | 2019-11-20 15:16 | CON ---
History Of Present Illness: This is a 69-year-old male. I was consulted for right foot diabetic stefania t ulcer. Patient has longstanding history of diabetic neuropathy and diabetes mellitus for 30 years. Patient also has hypertension, myocardial infarction, osteomyelitis. Patient is currently being tr eated with IV antibiotics including cefepime and vancomycin. Patient denies any headache, nausea, vo miting, chest pain, abdominal pain, constipation, or diarrhea. Past Medical History: Includes diabetes mellitus, diabetic neuropathy, third toe amputation of the r ight foot. Medications: Insulin, metformin, Levaquin, gabapentin, vancomycin, and cefepime. See MAR for other medications. Allergies: NO KNOWN DRUG ALLERGIES. Review of Systems: Ten-point review was performed. Physical Examination: General: This is a 69-year-old male, lying in bed, not in any acute cardiopulmonary distress. Vital Signs: Temperature 98, pulse 64, respirations 16, blood pressure 155/76. HEENT: Unremarkable. Neck: Supple. Lungs: Clear to auscultation. Heart: S1, S2. Regular. Abdomen: Soft, nontender. Bowel sounds present. Extremities: Right foot examination shows amputation site of the third toe with greenish yellow and black necrotic tissue with foul odor. Minimal discharge also noted on the dressing was removed. Laboratory Data: Shows WBC 8000, hemoglobin 11.1, platelets are 241. Chemistry shows sodium 138, po tassium 4, chloride 109, bicarb 22, BUN 47, creatinine is 3.39, glucose is 209. Albumin is 2.2. Micro Data: Blood cultures are pending. Wound cultures are pending. Preliminary report is showing gram-negative rods. Assessment And Plan: 69-year-old male with diabetic neuropathy and diabetic foot ulcer, coming in [facility] osteomyelitis of the third toe metatarsal head and also gram-negative rods growing out of the woun d cultures, most likely a pseudomonas or Escherichia coli. Patient is currently being treated with c efepime and vancomycin. His albumin level is also 2.2, which indicates that the patient has severe p rotein-calorie malnourishment with elevated creatinine showing renal failure. We will recommend 6 we eks of IV antibiotics. Recommend also to clean the wound with Dakin full strength and apply Silvaden e to the wound site and keep leg elevated when possible. Consider long-term acute care. We will fol low patient closely. Thank you for consult. NF/MODL Voice ID: [id number] Report ID: [id number]
[2019-11-20] MEDS: ENOXAPARIN 30 MG/0.3 ML SQ SCH (17:13)
[2019-11-20] MEDS: PANTOPRAZOLE 40 MG INJ IVP SCH (20:33)
[2019-11-20] MEDS: CEFEPIME/SWI 1gm 10 ML IV SCH (20:33)
--- NOTE | 2019-11-20 20:43 | RAD REPORT ---
EXAM DESCRIPTION: MRI - Foot Right Wo Cont - 11/20/2019 8:08 pm CLINICAL HISTORY: open wound with suspected Osteo Pain and swelling COMPARISON: Foot Right Wo Cont dated 08/08/2019; Foot Right 3 View dated 11/19/2019 FINDINGS: Significant abnormal diminished T1 and elevated T2 signal is seen in the second metatarsal head and proximal phalanx, very distal aspect of third metatarsal stump as well as the proximal phal anx of the fourth toe compatible with moderately severe osteomyelitis. The tissues are moderately inflamed and edematous. With poorly defined phlegmonous tissue present. An abscess is not identified. IMPRESSION: Moderate osteomyelitis is present as detailed.
[2019-11-20] MEDS ORDERED: PROMETHAZINE INJ 25 MG/ML AMP IV ONE (22:43)
[2019-11-21 04:32] LABS: Albumin 1.9 g/dL (3.4-5.0); Bilirubin Total 0.2 mg/dL (0.2-1.0); Potassium 4.3 mmol/L (3.5-5.1); Protein, Total 6.4 g/dL (6.4-8.2)
[2019-11-21] MEDS ORDERED: VANCOMYCIN 1.5 GM in NA CHLORIDE 0.9% 500 ML IVPB SCH (05:00)
[2019-11-21] MEDS: METOPROLOL TAR 25 MG TAB PO SCH ×2 (05:13→17:04)
[2019-11-21] MEDS: INSULIN -REGULAR HUMAN 50 UNIT/0.5 ML ML SQ SCH ×5 (08:24→21:44)
[2019-11-21] MEDS: AMLODIPINE 10 MG TAB PO SCH (08:25)
[2019-11-21] MEDS: SODIUM HYPOCHLORITE 0.5% 473 ML TOP SCH (08:25)
[2019-11-21] MEDS: SILVER SULFADIAZINE 1% 50 GM TOP SCH (08:25)
[2019-11-21] MEDS: PANTOPRAZOLE 40 MG INJ IVP SCH ×2 (08:25→21:00)
[2019-11-21] MEDS: GABAPENTIN 300 MG CAP PO SCH ×3 (08:25→21:43)
[2019-11-21] MEDS: NA CHLORIDE 0.9% 1,000 ML IV SCH (11:39)
--- NOTE | 2019-11-21 12:54 | P.PN ---
Subjective Date of Service: 11/21/19 Primary Care Provider: None Chief Complaint: Cellulitis right foot, Osteomyelitis, Open wound Subjective: No new changes, Tolerating diet Physical Examination - Vital Signs Temperature: 97.5 F Blood Pressure: 120/66 Pulse: 57 Respirations: 18 Pulse Ox (%): 98 - Physical Exam General: Alert, In no apparent distress, Oriented x3 HEENT: Atraumatic, Normocephalic Neck: Supple, 2+ carotid pulse no bruit Respiratory: Clear to auscultation bilaterally, Normal air movement Cardiovascular: Normal pulses, Regular rate/rhythm Gastrointestinal: Normal bowel sounds, Soft and benign, Non-distended Integumentary: Skin breakdown, Diabetic ulcer (right foot digits ) - Studies Laboratory Last Values WBC 8.0 K/uL (4.3-10.9) D 11/20/19 03:32 RBC 3.68 M/uL (4.33-5.43) L 11/20/19 03:32 Hgb 11.1 g/dL (13.6-17.9) L 11/20/19 03:32 Hct 32.1 % (39.6-49.0) L 11/20/19 03:32 MCV 87.2 fL (80-100) 11/20/19 03:32 MCH 30.2 pg (27.0-35.0) 11/20/19 03:32 MCHC 34.6 g/dL (32.0-36.0) 11/20/19 03:32 RDW 15.1 % (12.1-15.2) 11/20/19 03:32 Plt Count 241 K/uL (152-406) 11/20/19 03:32 MPV 8.6 fL (7.6-11.3) 11/20/19 03:32 Neutrophils % 74.7 % (41.7-73.7) H 11/20/19 03:32 Lymphocytes % 11.7 % (15.3-44.8) L 11/20/19 03:32 Monocytes % 11.4 % (3.3-12.3) 11/20/19 03:32 Eosinophils % 1.4 % (0-4.4) 11/20/19 03:32 Basophils % 0.8 % (0-1.3) 11/20/19 03:32 Absolute Neutrophils 5.9 K/uL (1.8-8.0) 11/20/19 03:32 Absolute Lymphocytes 0.9 K/uL (0.7-4.9) 11/20/19 03:32 Absolute Monocytes 0.9 K/uL (0.1-1.3) 11/20/19 03:32 Absolute Eosinophils 0.1 K/uL (0-0.5) 11/20/19 03:32 Absolute Basophils 0.1 K/uL (0-0.5) 11/20/19 03:32 PT 15.9 SECONDS (9.5-12.5) H 11/19/19 16:55 INR 1.36 11/19/19 16:55 APTT 24.6 SECONDS (24.3-36.9) 11/19/19 16:55 Sodium 138 mmol/L (136-145) 11/21/19 03:56 Potassium 4.3 mmol/L (3.5-5.1) 11/21/19 03:56 Chloride 111 mmol/L (98-107) H 11/21/19 03:56 Carbon Dioxide 21 mmol/L (21-32) 11/21/19 03:56 BUN 52 mg/dL (7-18) H 11/21/19 03:56 Creatinine 3.66 mg/dL (0.55-1.3) H 11/21/19 03:56 Estimated GFR 17 mL/min (=/>90) L 11/21/19 03:56 Glucose 160 mg/dL (74-106) H 11/21/19 03:56 POC Glucose 181 mg/dl (65-120) H 11/21/19 11:05 Lactic Acid 2.0 mmol/L (0.4-2.0) 11/19/19 16:10 Calcium 7.8 mg/dL (8.5-10.1) L 11/21/19 03:56 Total Bilirubin 0.2 mg/dL (0.2-1.0) 11/21/19 03:56 Direct Bilirubin < 0.1 mg/dL (0-0.2) 11/19/19 19:05 AST 12 U/L (15-37) L 11/21/19 03:56 ALT 9 U/L (12-78) L 11/21/19 03:56 Alkaline Phosphatase 69 U/L (45-117) 11/21/19 03:56 Creatine Kinase Cancelled 11/19/19 16:55 Serum Total Protein 6.4 g/dL (6.4-8.2) 11/21/19 03:56 Albumin 1.9 g/dL (3.4-5.0) L 11/21/19 03:56 Globulin 4.5 g/dL (2.3-3.5) H 11/21/19 03:56 Albumin/Globulin Ratio 0.4 (1.1-1.8) L 11/21/19 03:56 Lipase Cancelled 11/19/19 16:55 Procalcitonin 0.15 ng/mL (<0.50) 11/19/19 16:55 Urine pH 5.5 (5.0-7.0) 11/19/19 19:17 Ur Specific [place] >1.030 (1.005-1.030) H 11/19/19 19:17 Glucose (UA)(Auto) 2+ (NEG) 11/19/19 19:17 Urine Ketones Negative (NEG) 11/19/19 19:17 Urine Blood 2+ (NEG) H 11/19/19 19:17 Urine Nitrite Negative (NEG) 11/19/19 19:17 Ur Leukocyte Esterase Negative (NEG) 11/19/19 19:17 Urine Total Protein 3+ (NEG) H 11/19/19 19:17 Vancomycin Trough 12.9 ug/mL (5.0-20.0) 11/21/19 03:56 ABO/Rh A NEGATIVE 11/20/19 03:32 Solid Phase Ab Screen Negative 11/19/19 17:20 Medications List Reviewed: Yes Assessment & Plan Physician Review: Patient Assessed, Agree with Above Assessment and Plan Physician Review Additional Text: # Right foot second and 3rd digit phalanx osteomyelitis -MRI of foot showing osteomyelitis -wound culture with klebsiella oxytoca - on IV abx with vanco and cefepime now - switch vanco to levaquin since renal failure - seen by wound team -Dr Headley - recommend foreign diplomat IV abx and transfer to LTAC - awaiting placement c/w abx -c/w gentle IVF -follow surgery team eval # ARF on CKD stage III - creatinine rising to 3.66 -may be due to vanco use -awaiting urine studies for fena -increase IVF SN for now -add po sodium bicarb -may be due to septic ATN on CKD stage IV # HTN -improved # DM -c/w insulin SSS # Gastritis -start PPI # DVT prop - on lovenox
[2019-11-21] MEDS ORDERED: Levofloxacin 250mg IV 250 MG/50 ML BAG IV SCH (13:00)
[2019-11-21] MEDS: cloNIDine HCL 0.1 MG TAB PO SCH ×2 (13:55→21:42)
[2019-11-21] MEDS: MORPHINE 4 MG/ML SYR IV PRN (13:59)
--- NOTE | 2019-11-21 15:59 | PN ---
Subjective: Patient is lying in bed. No fever. Denies any other problems. No pain in his foot. P carlos has fever, diabetic neuropathy. Objective: Vital Signs: Temperature 97.5, pulse 57, respirations 18, blood pressure 120/66. Extremities: No changes in examination except foot exam continued to show foul odor from the wound s ite. The redness and swelling have gone down. Also, continued to have greenish yellow discharge. Wound cultures are growing Klebsiella oxytoca. Patient also currently being treated with IV vancomyc in and cefepime with Silvadene to the wound site after cleaning with Dakin solution. Klebsiella is s ensitive to cefepime. Assessment And Plan: Right foot diabetic foot ulcer with osteomyelitis and cellulitis, improving. C ontinue empiric antibiotic with vancomycin and cefepime. We might be able to deescalate him to joesph lone and vancomycin. Continue wound care, supportive care with Silvadene and Dakin solution. NF/MODL Voice ID: [id number] Report ID: [id number]
[2019-11-21] MEDS: ENOXAPARIN 30 MG/0.3 ML SQ SCH (17:04)
[2019-11-21] MEDS: CEFEPIME/SWI 1gm 10 ML IV SCH (21:00)
[2019-11-21] MEDS: SODIUM BICARB 325 MG TAB PO SCH (21:43)
[2019-11-22] MEDS: CEFEPIME/SWI 1gm 10 ML IV SCH (01:02)
[2019-11-22] MEDS: NA CHLORIDE 0.9% 1,000 ML IV SCH ×3 (01:03→21:55)
[2019-11-22] MEDS: PANTOPRAZOLE 40 MG INJ IVP SCH ×3 (01:03→21:41)
[2019-11-22 05:52] LABS: Albumin 1.8 g/dL (3.4-5.0); Bilirubin Total 0.2 mg/dL (0.2-1.0); Potassium 4.3 mmol/L (3.5-5.1); Protein, Total 6.4 g/dL (6.4-8.2)
[2019-11-22] MEDS: METOPROLOL TAR 25 MG TAB PO SCH ×2 (06:32→22:17)
[2019-11-22] MEDS: AMLODIPINE 10 MG TAB PO SCH (09:25)
[2019-11-22] MEDS: cloNIDine HCL 0.1 MG TAB PO SCH ×2 (09:25→21:41)
[2019-11-22] MEDS: INSULIN -REGULAR HUMAN 50 UNIT/0.5 ML ML SQ SCH ×4 (09:26→21:00)
[2019-11-22] MEDS: GABAPENTIN 300 MG CAP PO SCH ×3 (09:26→21:41)
[2019-11-22] MEDS: SODIUM BICARB 325 MG TAB PO SCH ×2 (11:20→21:41)
--- NOTE | 2019-11-22 12:37 | P.PN ---
Subjective Date of Service: 11/22/19 Primary Care Provider: None Chief Complaint: Cellulitis right foot, Osteomyelitis, Open wound Subjective: No new changes, Tolerating diet Physical Examination - Vital Signs Temperature: 97.8 F Blood Pressure: 127/74 Pulse: 61 Respirations: 16 Pulse Ox (%): 94 - Physical Exam General: Alert, In no apparent distress, Oriented x3 HEENT: Atraumatic, Normocephalic Neck: Supple, 2+ carotid pulse no bruit Respiratory: Clear to auscultation bilaterally, Normal air movement Cardiovascular: Normal pulses, Regular rate/rhythm, Normal S1 S2 Gastrointestinal: Normal bowel sounds, Soft and benign, Non-distended Musculoskeletal: No clubbing, No swelling Neurological: Normal speech, Normal strength at 5/5 x4 extr - Studies Laboratory Last Values WBC 8.0 K/uL (4.3-10.9) D 11/20/19 03:32 RBC 3.68 M/uL (4.33-5.43) L 11/20/19 03:32 Hgb 11.1 g/dL (13.6-17.9) L 11/20/19 03:32 Hct 32.1 % (39.6-49.0) L 11/20/19 03:32 MCV 87.2 fL (80-100) 11/20/19 03:32 MCH 30.2 pg (27.0-35.0) 11/20/19 03:32 MCHC 34.6 g/dL (32.0-36.0) 11/20/19 03:32 RDW 15.1 % (12.1-15.2) 11/20/19 03:32 Plt Count 241 K/uL (152-406) 11/20/19 03:32 MPV 8.6 fL (7.6-11.3) 11/20/19 03:32 Neutrophils % 74.7 % (41.7-73.7) H 11/20/19 03:32 Lymphocytes % 11.7 % (15.3-44.8) L 11/20/19 03:32 Monocytes % 11.4 % (3.3-12.3) 11/20/19 03:32 Eosinophils % 1.4 % (0-4.4) 11/20/19 03:32 Basophils % 0.8 % (0-1.3) 11/20/19 03:32 Absolute Neutrophils 5.9 K/uL (1.8-8.0) 11/20/19 03:32 Absolute Lymphocytes 0.9 K/uL (0.7-4.9) 11/20/19 03:32 Absolute Monocytes 0.9 K/uL (0.1-1.3) 11/20/19 03:32 Absolute Eosinophils 0.1 K/uL (0-0.5) 11/20/19 03:32 Absolute Basophils 0.1 K/uL (0-0.5) 11/20/19 03:32 PT 15.9 SECONDS (9.5-12.5) H 11/19/19 16:55 INR 1.36 11/19/19 16:55 APTT 24.6 SECONDS (24.3-36.9) 11/19/19 16:55 Sodium 139 mmol/L (136-145) 11/22/19 04:00 Potassium 4.3 mmol/L (3.5-5.1) 11/22/19 04:00 Chloride 112 mmol/L (98-107) H 11/22/19 04:00 Carbon Dioxide 21 mmol/L (21-32) 11/22/19 04:00 BUN 46 mg/dL (7-18) H 11/22/19 04:00 Creatinine 3.94 mg/dL (0.55-1.3) H 11/22/19 04:00 Estimated GFR 15 mL/min (=/>90) L 11/22/19 04:00 Glucose 179 mg/dL (74-106) H 11/22/19 04:00 POC Glucose 208 mg/dl (65-120) H 11/22/19 12:02 Lactic Acid 2.0 mmol/L (0.4-2.0) 11/19/19 16:10 Calcium 7.8 mg/dL (8.5-10.1) L 11/22/19 04:00 Total Bilirubin 0.2 mg/dL (0.2-1.0) 11/22/19 04:00 Direct Bilirubin < 0.1 mg/dL (0-0.2) 11/19/19 19:05 AST 10 U/L (15-37) L 11/22/19 04:00 ALT 9 U/L (12-78) L 11/22/19 04:00 Alkaline Phosphatase 68 U/L (45-117) 11/22/19 04:00 Creatine Kinase Cancelled 11/19/19 16:55 Serum Total Protein 6.4 g/dL (6.4-8.2) 11/22/19 04:00 Albumin 1.8 g/dL (3.4-5.0) L 11/22/19 04:00 Globulin 4.6 g/dL (2.3-3.5) H 11/22/19 04:00 Albumin/Globulin Ratio 0.4 (1.1-1.8) L 11/22/19 04:00 Lipase Cancelled 11/19/19 16:55 Procalcitonin 0.15 ng/mL (<0.50) 11/19/19 16:55 Urine pH 5.5 (5.0-7.0) 11/19/19 19:17 Ur Specific Koppel >1.030 (1.005-1.030) H 11/19/19 19:17 Glucose (UA)(Auto) 2+ (NEG) 11/19/19 19:17 Urine Ketones Negative (NEG) 11/19/19 19:17 Urine Blood 2+ (NEG) H 11/19/19 19:17 Urine Nitrite Negative (NEG) 11/19/19 19:17 Ur Leukocyte Esterase Negative (NEG) 11/19/19 19:17 Urine Total Protein 3+ (NEG) H 11/19/19 19:17 Vancomycin Trough 12.9 ug/mL (5.0-20.0) 11/21/19 03:56 ABO/Rh A NEGATIVE 11/20/19 03:32 Solid Phase Ab Screen Negative 11/19/19 17:20 Medications List Reviewed: Yes Assessment & Plan Physician Review: Patient Assessed, Agree with Above Assessment and Plan Physician Review Additional Text: # 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
[2019-11-22] MEDS: ENOXAPARIN 30 MG/0.3 ML SQ SCH (17:00)
--- NOTE | 2019-11-22 17:01 | RAD REPORT ---
EXAM DESCRIPTION: US - Renal Ultrasound-Complete - 11/22/2019 4:46 pm CLINICAL HISTORY: arf COMPARISON: Renal Ultrasound-Complete dated 08/10/2019 FINDINGS: The right kidney measures 9.8 x 4.9 x 5.2 cm. The left kidney measures 9.7 x 6.0 x 5.1 cm . When adjusting for differences in image selection and technique, no significant change renal size h as occurred since the recent July 2019 study. Renal cortical thickness and echogenicity are anupam l. No hydronephrosis or suspicious renal mass. No bladder wall thickening or mass. No intraluminal stone or mass. IMPRESSION: No hydronephrosis or suspicious renal mass. No significant change from July 2019.
[2019-11-22] MEDS: SODIUM HYPOCHLORITE 0.5% 473 ML TOP SCH (21:42)
[2019-11-22] MEDS: SILVER SULFADIAZINE 1% 50 GM TOP SCH (21:42)
[2019-11-22] MEDS: MORPHINE 4 MG/ML SYR IV PRN (21:43)
[2019-11-23] MEDS: METOPROLOL TAR 25 MG TAB PO SCH ×2 (05:07→17:05)
[2019-11-23] MEDS: NA CHLORIDE 0.9% 1,000 ML IV SCH (05:07)
[2019-11-23 05:14] LABS: Albumin 1.9 g/dL (3.4-5.0); Bilirubin Total 0.2 mg/dL (0.2-1.0); Potassium 4.7 mmol/L (3.5-5.1); Protein, Total 6.3 g/dL (6.4-8.2)
[2019-11-23] MEDS: ONDANSETRON 4 MG/2 ML VIAL IV PRN (05:48)
[2019-11-23] MEDS: INSULIN -REGULAR HUMAN 50 UNIT/0.5 ML ML SQ SCH ×4 (07:30→21:04)
[2019-11-23 09:05] LABS: Urine Protein/Creatinine Ratio 3.33 ratio (<0.15)
[2019-11-23] MEDS: AMLODIPINE 10 MG TAB PO SCH (09:25)
[2019-11-23] MEDS: SODIUM BICARB 325 MG TAB PO SCH ×2 (09:26→21:04)
[2019-11-23] MEDS: SODIUM HYPOCHLORITE 0.5% 473 ML TOP SCH (09:26)
[2019-11-23] MEDS: cloNIDine HCL 0.1 MG TAB PO SCH ×2 (09:26→21:03)
[2019-11-23] MEDS: PANTOPRAZOLE 40 MG INJ IVP SCH (09:26)
[2019-11-23] MEDS: SILVER SULFADIAZINE 1% 50 GM TOP SCH (09:26)
[2019-11-23] MEDS: GABAPENTIN 300 MG CAP PO SCH ×3 (09:29→21:04)
--- NOTE | 2019-11-23 12:07 | P.CNS ---
Date of Consult: 11/23/19 Reason for Consult: NOHELIA Primary Care Provider: None Chief Complaint: Cellulitis right foot, Osteomyelitis, Open wound Allergies No Known Allergies Allergy (Unverified 12/18/15 19:47) Home Medications: NK [No Home Meds] 11/20/19 - Past Medical/Surgical History Diabetic: Yes -: Hypertension -: DM -: Anxiety -: [place] x3 -: Pancreatitis -: Cardiac Stents -: Appy Rt middle toe amputated - Social History Smoking Status: Unknown if ever smoked Alcohol use: No CD- Drugs: No Caffeine use: Yes Place of Residence: Home Physical Examination Temp Pulse Resp BP Pulse Ox 97.9 F 62 16 117/59 L 92 11/23/19 08:00 11/23/19 09:26 11/23/19 08:00 11/23/19 09:26 11/23/19 08:00 - Problems (1) NOHELIA (acute kidney injury) Current Visit: Yes Status: Acute Conclusions/Impression: A 69-year-old male with PMJHx of DM, HTN , CKD IV baseline Cr ~3.1 , CAD, and poor compliance with meds pt presented for open foot wound found to have OM his cr on admission was 3.4 which is above baseline , pt started on vanco he denied NSAID or contrast exposure had mild nausea and vomiting denied chest pain, palpitation, or diarrhea Physical exam general: AAOX3, NAD , obese Neck; Supple, No elevated JVD hear: RRR, normal S1,2 no murmur or rub Chest: CTAB, no rlaes or wheezes Abdomen: Soft , Nt Extremities No edema or ulcer , foot dressing A/P NOHELIA on CKD IV possibly due to septic ATv vs AIN from Abx vanco on hold US no hydro UPC 3.3, will dc IVF and PPI I discussed with pt that he will likely need to start HD in the near future , pt wants to defer the discussion until he need to start HD HAGMA due to CKD cont sodium bicarb DM as per primary OM cont wound care off vanco renal dose meds HTN BP controlled
--- NOTE | 2019-11-23 12:20 | P.PN ---
Subjective Date of Service: 11/23/19 Primary Care Provider: None Chief Complaint: Cellulitis right foot, Osteomyelitis, Open wound Physical Examination - Vital Signs Temperature: 98.1 F Blood Pressure: 124/60 Pulse: 66 Respirations: 16 Pulse Ox (%): 92 - Physical Exam General: Alert, In no apparent distress HEENT: Atraumatic, PERRLA, EOMI Neck: Supple, JVD not distended Respiratory: Clear to auscultation bilaterally, Normal air movement Cardiovascular: Regular rate/rhythm, Normal S1 S2 Gastrointestinal: Normal bowel sounds, No tenderness Musculoskeletal: No tenderness Integumentary: Skin breakdown Neurological: Normal speech, Normal tone, Normal affect Lymphatics: No axilla or inguinal lymphadenopathy - Studies Medications List Reviewed: Yes Assessment & Plan Physician Review: Patient Assessed, Agree with Above Assessment and Plan Physician Review Additional Text: # Right foot second and 3rd digit phalanx osteomyelitis -MRI of foot showing osteomyelitis -wound culture with klebsiella oxytoca /Morgananiisp and E fecalis - patient unable to to LTAC due to insurance issues but can do SNF if only on 1 IV abx - based on c/s , on IV ampicillin and po levaquin since renal failure -case mgt will help to get patient into SNF vs LTAC - awaiting placement c/w abx -c/w gentle IVF -follow surgery team eval # ARF on CKD stage IV - creatinine at 3.9 -Routine UA suggesting nephrotic range proteinuria -s/p taken off vanco; -po bicarb -c/w gentle iVF , may need albumin doses -Prior workup for CKD from 07/2019 noted -Nephrology -Dr Brown to follow # HTN -improved # DM -c/w insulin SSS # Gastritis -c/w PPI Dispo- picc line vs mid line pending snf or LTAC # DVT prop - on lovenox
[2019-11-23] MEDS: NA CHLORIDE 0.9% IV SCH ×2 (14:06→22:36)
[2019-11-23] MEDS: AMPICILLIN SODIUM IV SCH ×2 (14:06→22:36)
[2019-11-23] MEDS: ENOXAPARIN 30 MG/0.3 ML SQ SCH (17:04)
[2019-11-23] MEDS ORDERED: AMPICILLIN TRIHYDRATE 500 MG CAP PO SCH (21:00)
[2019-11-23] MEDS: Ciprofloxacin 200mg IV 200 MG/100 ML IV.SOLN. IV SCH (21:04)
[2019-11-24] MEDS: METOPROLOL TAR 25 MG TAB PO SCH ×2 (05:00→17:31)
[2019-11-24 07:10] LABS: Absolute Lymphocytes (CBC) 1.2 K/uL (0.7-4.9); Basophils % 0.8 % (0-1.3); Hematocrit 27.8 % (39.6-49.0); Lymphocytes % 19.8 % (15.3-44.8); RBC Red Blood Cell Count 3.15 M/uL (4.33-5.43)
[2019-11-24] MEDS: INSULIN -REGULAR HUMAN 50 UNIT/0.5 ML ML SQ SCH ×4 (07:19→20:27)
[2019-11-24 07:33] LABS: Albumin 1.9 g/dL (3.4-5.0); Bilirubin Total 0.2 mg/dL (0.2-1.0); Potassium 4.3 mmol/L (3.5-5.1); Protein, Total 6.4 g/dL (6.4-8.2)
[2019-11-24] MEDS: Ciprofloxacin 200mg IV 200 MG/100 ML IV.SOLN. IV SCH ×2 (08:36→20:23)
[2019-11-24] MEDS: AMLODIPINE 10 MG TAB PO SCH (08:37)
[2019-11-24] MEDS: cloNIDine HCL 0.1 MG TAB PO SCH ×2 (08:37→20:23)
[2019-11-24] MEDS: GABAPENTIN 300 MG CAP PO SCH ×3 (08:37→20:23)
[2019-11-24] MEDS: SODIUM BICARB 325 MG TAB PO SCH ×2 (08:37→20:23)
[2019-11-24] MEDS: SODIUM HYPOCHLORITE 0.5% 473 ML TOP SCH (08:38)
[2019-11-24] MEDS: SILVER SULFADIAZINE 1% 50 GM TOP SCH (08:38)
[2019-11-24] MEDS: AMPICILLIN SODIUM IV SCH ×2 (09:44→20:23)
[2019-11-24] MEDS: NA CHLORIDE 0.9% IV SCH ×2 (09:44→20:23)
[2019-11-24] MEDS: MORPHINE 4 MG/ML SYR IV PRN (10:35)
--- NOTE | 2019-11-24 13:47 | PN ---
Subjective: Currently, patient lying in bed. He looks comfortable. He has no chest pain. No abdom inal pain. No fever, no chills. Overnight, hypertension is good. Had a bowel movement. Review of Systems: Otherwise as below. Objective: Vital Signs: Blood pressure is 148/74, respiratory rate 18, pulse 60, temperature is 98. 4. General: Patient is alert and oriented x3. Does not look in any distress. HEENT: Atraumatic, normocephalic. PERRLA. Oral mucosa is moist. Neck: Supple. No JVD. No carotid bruits. Chest: Clear to auscultation. Good air entry. Heart: Regular rate and rhythm. S1, S2 normal. No gallop or murmur. Abdomen: Soft, nontender. No mass. No hepatosplenomegaly. Positive bowel sounds. Extremities: No clubbing, no cyanosis, no edema. No calf tenderness. Right foot with a wide tracin g. I did not remove the dressing. Third toe amputated with skin breakdown . Laboratory Data: Today, showed CBC was normal except for hemoglobin 9.4. Chemistry was normal excep t for BUN of 51, creatinine of 3.8, glucose of 187, calcium 7.9, albumin 2.9. Assessment And Plan: This is a 70-year-old gentleman with history of right foot osteomyelitis. 1.Right foot second and third digit phalanx osteomyelitis. MRI of the foot showed osteomyelitis. W ound culture was consistent with Klebsiella oxytoca and Enterococcus faecalis. Patient currently on IV antibiotic with IV penicillin and oral Levaquin. Due to his renal insufficiency, patient has limi tonia use of antibiotic. Plan was initially to discharge him to due to insurance issue. He will need to go to SNF and the dependency case manager working on that, and probably that will not happen until Tuesday. Dr. Sidhu has seen patient and no surgical intervention needed at this point. 2.Renal failure, acute on chronic stage 4. Creatinine today at 3.96 with elevated BUN at 49, which consistent somewhat with dehydration. Patient was seen by Nephrology yesterday. After hemodialysis, patient deferred that for now. IV fluid was stopped by Nephrology. He is subsequently on bicarb. We will let Nephrology manage his renal insufficiency. 3.Hypertension, not well controlled. He is on Norvasc p.r.n. hydralazine. I will increase his clon idine to 0.2 p.o. b.i.d. 4.Wound care with sulfadiazine with Dr. Headley. 5.Deep vein thrombosis prophylaxis, on renal insufficiency. 6.Anemia, most likely secondary to chronic disease and renal insufficiency. 7.Discharge plan mostly Tuesday after placement found. JEFRY/TIM Voice ID: [id number] Report ID: [id number]
--- NOTE | 2019-11-24 15:57 | P.PN ---
Subjective Date of Service: 11/24/19 Primary Care Provider: None Chief Complaint: Cellulitis right foot, Osteomyelitis, Open wound Subjective 69-year-old male with PMJHx of DM, HTN , CKD IV baseline Cr ~3.1 , CAD, and poor compliance with meds pt presented for open foot wound found to have OM his cr on admission was 3.4 which is above baseline , pt started on vanco today no new complaints CXR with lt effusion , IV Dcd cr stable pending placement will cont to monitor No Known Allergies Allergy (Unverified 12/18/15 19:47) - Past Medical/Surgical History Diabetic: Yes -: Hypertension -: DM -: Anxiety -: [place] x3 -: Pancreatitis -: Cardiac Stents -: Appy Rt middle toe amputated - Social History Smoking Status: Unknown if ever smoked Alcohol use: No CD- Drugs: No Caffeine use: Yes Place of Residence: Home Physical exam general: AAOX3, NAD , obese Neck; Supple, No elevated JVD hear: RRR, normal S1,2 no murmur or rub Chest: CTAB, no rlaes or wheezes Abdomen: Soft , Nt Extremities No edema or ulcer , foot dressing A/P NOHELIA on CKD IV possibly due to septic ATv vs AIN from Abx vanco on hold US no hydro UPC 3.3, off IVF and PPI I discussed with pt that he will likely need to start HD in the near future , pt wants to defer the discussion until he need to start HD HAGMA due to CKD cont sodium bicarb DM as per primary OM cont wound care off vanco renal dose meds HTN BP controlled Physical Examination - Vital Signs Temperature: 97.7 F Blood Pressure: 137/69 Pulse: 54 Respirations: 18 Pulse Ox (%): 95 - Studies Medications List Reviewed: Yes Assessment And Plan - Current Problems (Diagnosis) (1) NOHELIA (acute kidney injury) Current Visit: Yes Status: Acute
[2019-11-24] MEDS: ENOXAPARIN 30 MG/0.3 ML SQ SCH (17:31)
[2019-11-25 04:12] LABS: Absolute Lymphocytes (CBC) 1.1 K/uL (0.7-4.9); Basophils % 1.3 % (0-1.3); Hematocrit 27.2 % (39.6-49.0); Lymphocytes % 16.7 % (15.3-44.8)
[2019-11-25 04:24] LABS: Potassium 4.9 mmol/L (3.5-5.1)
[2019-11-25] MEDS: METOPROLOL TAR 25 MG TAB PO SCH ×2 (05:03→17:01)
[2019-11-25] MEDS: SODIUM BICARB 325 MG TAB PO SCH ×2 (09:05→21:59)
[2019-11-25] MEDS: AMLODIPINE 10 MG TAB PO SCH (09:06)
[2019-11-25] MEDS: cloNIDine HCL 0.1 MG TAB PO SCH ×2 (09:06→21:57)
[2019-11-25] MEDS: GABAPENTIN 300 MG CAP PO SCH ×3 (09:06→21:58)
[2019-11-25] MEDS: INSULIN -REGULAR HUMAN 50 UNIT/0.5 ML ML SQ SCH ×4 (09:07→21:00)
[2019-11-25] MEDS: NA CHLORIDE 0.9% IV SCH ×2 (09:08→21:20)
[2019-11-25] MEDS: AMPICILLIN SODIUM IV SCH ×2 (09:08→21:20)
[2019-11-25] MEDS: SILVER SULFADIAZINE 1% 50 GM TOP SCH (09:10)
[2019-11-25] MEDS: SODIUM HYPOCHLORITE 0.5% 473 ML TOP SCH (09:10)
[2019-11-25] MEDS: Ciprofloxacin 200mg IV 200 MG/100 ML IV.SOLN. IV SCH ×2 (09:56→21:58)
[2019-11-25 11:15] LABS: Ferritin 529.9 ng/mL (26-388)
--- NOTE | 2019-11-25 12:05 | P.PN ---
Subjective Date of Service: 11/25/19 Primary Care Provider: None Chief Complaint: Cellulitis right foot, Osteomyelitis, Open wound Subjective 69-year-old male with PMJHx of DM, HTN , CKD IV baseline Cr ~3.1 , CAD, and poor compliance with meds pt presented for open foot wound found to have OM his cr on admission was 3.4 which is above baseline , pt started on vanco today no new complaints cr stable , refusing HD if needed pending placement will cont to monitor I will give lasix X1 No Known Allergies Allergy (Unverified 12/18/15 19:47) - Past Medical/Surgical History Diabetic: Yes -: Hypertension -: DM -: Anxiety -: [place] x3 -: Pancreatitis -: Cardiac Stents -: Appy Rt middle toe amputated - Social History Smoking Status: Unknown if ever smoked Alcohol use: No CD- Drugs: No Caffeine use: Yes Place of Residence: Home Physical exam general: AAOX3, NAD , obese Neck; Supple, No elevated JVD hear: RRR, normal S1,2 no murmur or rub Chest: CTAB, no rlaes or wheezes Abdomen: Soft , Nt Extremities ,Rt foot dressing with +1 edema, Lt no edema A/P NOHELIA on CKD IV possibly due to septic ATv vs AIN from Abx vanco on hold US no hydro UPC 3.3, off IVF and PPI I discussed with pt that he will likely need to start HD in the near future , pt wants to defer the discussion until he need to start HD HAGMA due to CKD cont sodium bicarb DM as per primary OM cont wound care off vanco renal dose meds HTN BP controlled Physical Examination - Vital Signs Temperature: 98.4 F Blood Pressure: 133/69 Pulse: 55 Respirations: 14 Pulse Ox (%): 91 - Studies Microbiology Data (last 24 hrs): 11/19/19 16:30 Blood - Blood Aerobic Blood Culture - Final No growth in 5 days. 11/19/19 16:30 Blood - Blood Anaerobic Blood Culture - Final No growth in 5 days. 11/19/19 16:10 Blood - Blood Aerobic Blood Culture - Final No growth in 5 days. 11/19/19 16:10 Blood - Blood Anaerobic Blood Culture - Final No growth in 5 days. Medications List Reviewed: Yes Assessment And Plan - Current Problems (Diagnosis) (1) NOHELIA (acute kidney injury) Current Visit: Yes Status: Acute
[2019-11-25] MEDS ORDERED: FUROSEMIDE 40 MG/4 ML VIAL IV ONE (13:00)
--- NOTE | 2019-11-25 15:06 | PN ---
Subjective: Currently, patient lying in bed. He looks comfortable. He has no chest pain. No abdom inal pain. No fever, no chills. He had a good breakfast. Objective: Vital Signs: Blood pressure 133/69, respiratory rate is 14, pulse 55, temperature 98.4, saturating 91% on room air. General: Patient is alert and oriented x3. Does not look in any distress. HEENT: Atraumatic, normocephalic. PERRLA. Oral mucosa is moist. Neck: Supple. No JVD. No carotid bruits. Chest: Clear to auscultation. Good air entry. Heart: Regular rate and rhythm. S1, S2 normal. No gallop or murmur. Abdomen: Soft, nontender. No masses. No hepatosplenomegaly. Positive bowel sounds. Extremities: No clubbing, cyanosis, or edema. No calf tenderness. Right foot with dressing. Third toe amputated with skin breakdown noted previously. Laboratory Data: Today, showed CBC normal except for hemoglobin 9.1, which is stable compared to yes terday is 9.4. Chemistry within normal except for BUN of 55, creatinine 3.94, glucose of 254, it was in the range of 180 to 254 today. Assessment And Plan: A 69-year-old gentleman with history of right foot osteomyelitis. 1.Right foot second and third phalanx osteomyelitis. MRI of the foot showed and confirmed osteomyel itis. Wound culture was consistent with Klebsiella oxytoca and Enterococcus faecalis. Patient curre ntly on IV antibiotic with penicillin and oral Levaquin. Given his renal insufficiency, certain anti biotics have to be used. The plan was to discharge him to LTAC, was not approved by insurance, so no social work is trying to send patient to a nursing home facility, so he can finish his course of IV antibiotic. Discharge would be probably pending until Tuesday where placement is found and the in [facility] approved that. No surgical intervention indicated at this point with Dr. Sidhu. 2.Renal insufficiency, acute on chronic stage 4. Creatinine today at 3.84 and BUN again 55. Nephro logy is following. The patient denied hemodialysis that was offered yesterday by Nephrology. 3.Hypertension within control today. I increased his clonidine yesterday to 0.2 twice a day and tay t helped. Continue Norvasc and p.r.n. hydralazine. 4.Wound care. Dr. Headley is following. Continue sulfadiazine and antibiotic as above. 5.Anemia secondary to chronic renal insufficiency on chronic disease. H and H stable in the last 48 hours. Continue to observe the need for transfusion. I will check stool occult blood also and iron profile today. 6.Deep vein thrombosis prophylaxis, on Lovenox 30 given renal insufficiency. 7.Discharge planning will be given on a placement if patient accepted in a SNF. JEFRY/TIM Voice ID: [id number] Report ID: [id number]
[2019-11-25] MEDS: ENOXAPARIN 30 MG/0.3 ML SQ SCH (17:01)
[2019-11-25 21:41] VITALS: O2SAT 93
[2019-11-26] MEDS: METOPROLOL TAR 25 MG TAB PO SCH ×2 (05:30→16:44)
[2019-11-26 05:38] LABS: Absolute Lymphocytes (CBC) 1.1 K/uL (0.7-4.9); Basophils % 1.3 % (0-1.3); Hematocrit 27.1 % (39.6-49.0); Lymphocytes % 16.2 % (15.3-44.8); MPV 8.7 fL (7.6-11.3); RBC Red Blood Cell Count 3.08 M/uL (4.33-5.43)
[2019-11-26 05:49] LABS: Potassium 4.5 mmol/L (3.5-5.1)
[2019-11-26] MEDS: INSULIN -REGULAR HUMAN 50 UNIT/0.5 ML ML SQ SCH ×3 (07:30→16:44)
--- NOTE | 2019-11-26 09:54 | RAD REPORT ---
EXAM DESCRIPTION: RAD - Chest Single View - 11/23/2019 11:04 pm CLINICAL HISTORY: S/P PICC insertion TECHNIQUE: Single frontal view of the chest is submitted. COMPARISON: None available for comparison FINDINGS: Heart: The cardiothoracic silhouette is enlarged. Lungs: Patchy left basilar opacification. Mediastinum: Thoracic aortic atherosclerosis. Pleura: Blunting of the left costophrenic angle. Bones: Intact Upper abdomen: Elevation of the left hemidiaphragm. Other: Right upper extremity PICC tip projects over the mid superior vena cava. IMPRESSION: 1. Right upper extremity PICC tip projects over the mid superior vena cava. 2. Patchy left basilar opacification which may reflect a combination of a small left pleural effusi on and underlying consolidation (atelectasis and/or infiltrate). Electronically signed by: Dominick Rivera MD 11/23/2019 11:18 PM CDT Due to temporary technical issues with the PACS/Fluency reporting system, reports are being signed by the in house radiologist as a courtesy to ensure prompt reporting. The interpreting radiologist is f ully responsible for the content of the report.
[2019-11-26] MEDS: NA CHLORIDE 0.9% IV SCH (10:19)
[2019-11-26] MEDS: AMPICILLIN SODIUM IV SCH (10:19)
[2019-11-26] MEDS: GABAPENTIN 300 MG CAP PO SCH ×2 (10:23→14:38)
[2019-11-26] MEDS: cloNIDine HCL 0.1 MG TAB PO SCH (10:26)
[2019-11-26] MEDS: SODIUM BICARB 325 MG TAB PO SCH (10:27)
[2019-11-26] MEDS: Ciprofloxacin 200mg IV 200 MG/100 ML IV.SOLN. IV SCH (10:30)
[2019-11-26] MEDS: AMLODIPINE 10 MG TAB PO SCH (10:32)
--- NOTE | 2019-11-26 11:09 | PN ---
Subjective: Patient lying in bed. No new acute event. Chart reviewed. Patient was taken off the a ntibiotic yesterday from cefepime and Levaquin. Patient is growing Klebsiella oxytoca, Morganella mo rganii, and Enterococcus faecalis in the wound culture. Objective: Vital Signs: Temperature 97.9, pulse 62, respirations 16, blood pressure 117/59. musculoskeletal: Examination of right foot shows minimal 1+ edema with erythematous changes and exce ssive secretion and foul odor with some necrotic tissue noted between second and 4th toe at the amput ation site. Cultures are growing Klebsiella oxytoca, Morganella morganii, and Enterococcus faecalis. Patient sensitivity shows that we will be able to take care of patient on ampicillin for enterococc us faecalis and Cipro for Klebsiella oxytoca and Morganella morganii. No recent CBC are noted. Milly ent has a creatinine 3.96 with a BUN of 49, and GFR of 15. Assessment And Plan: Right foot cellulitis and right foot osteomyelitis with diabetic foot ulcer and renal failure. We will recommend to start patient on Cipro and ampicillin. Cipro can be given IV a nd ampicillin can be given oral. Total of 6 weeks. We will follow the patient closely. NF/MODL Voice ID: [id number] Report ID: [id number]
[2019-11-26] MEDS: SODIUM HYPOCHLORITE 0.5% 473 ML TOP SCH (14:35)
[2019-11-26] MEDS: SILVER SULFADIAZINE 1% 50 GM TOP SCH (14:35)
--- NOTE | 2019-11-26 15:26 | P.DS ---
Admission Date: 11/19/19 Discharge Date: 11/26/19 Primary Care Provider: None Reason for Admission: Cellulitis right foot, Osteomyelitis, Open wound Consultations: Dr. Kayode Sidhu - Problems (1) Diabetes mellitus Current Visit: Yes Status: Chronic Qualifiers: Diabetes mellitus type: type 2 Diabetes mellitus termite technician insulin use: with termite technician use Diabetes mellitus complication status: with skin complications Diabetes mellitus complication detail: with other skin complication Qualified Code(s): E11.628 - Type 2 diabetes mellitus with other skin complications; Z79.4 - half-way (current) use of insulin (2) Hypertension Current Visit: Yes Status: Chronic Qualifiers: Hypertension type: essential hypertension Qualified Code(s): I10 - Essential (primary) hypertension (3) Cellulitis of foot, right Current Visit: Yes Status: Acute (4) Open wound of foot Current Visit: Yes Status: Chronic Qualifiers: Encounter type: subsequent encounter Laterality: right Qualified Code(s) : S91.301D - Unspecified open wound, right foot, subsequent encounter (5) Osteomyelitis Current Visit: No Status: Acute Qualifiers: Osteomyelitis type: unspecified type Osteomyelitis location: foot Laterality: right Qualified Code(s): M86.9 - Osteomyelitis, unspecified Brief History of Present Illness: This is a 69-year-old male with a history of insulin-dependent diabetes mellitus , hypertension, myocardial infarction, osteomyelitis that is non compliant with any medicines currently secondary to financial constraints. Back in July of this past year patient stated that he had his 3rd toe amputated on is right foot secondary to osteomyelitis. Since then has never had a completely healed wound on that foot from the surgical site. Stated that over the past several days to month it has been getting worse and now to the point were is having foul -smelling discharge along with redness and increase in pain. Came to the emergency room because he could no longer bear the pain. Denies any fever or chills. Original surgery was at [facility]. Patient was further evaluated in in the emergency room and was decided to admit at that time secondary to the findings of his foot. Patient not septic at this time. Hospital Course: Patient has remained stable throughout stay in the hospital. Patient was treated for osteomyelitis and cellulitis. Patient had a positive MRI for osteomyelitis. Surgical consult was made and at this time did not need surgical debridement or further amputation. Infectious Disease was consulted in which patient was started on ampicillin and ciprofloxacin via IV. Patient has chronic kidney disease. Nephrology was consulted and was started on sodium bicarbonate which will be continued upon discharge. Patient will also have Cipro and ampicillin continued for the next 6 weeks per infectious disease consult. Patient will be placed at a [facility] facility for further treatment requirements. Vitals have remained stable while in the hospital. Patient has not run a fever and has not showed any signs of sepsis. Patient will have close monitoring throughout the next 6 weeks to ensure kidneys remained stable. During his stay his hypertension and diabetes mellitus well controlled as well. Patient has been accepted [facility] facility and does will be discharged today. After course of treatment patient will follow up with both general surgery and infectious disease. <Shane Burroughs - Last Filed: 11/26/19 15:21> Admission Date: 11/19/19 Discharge Date: 11/26/19 Consultations: Surgery-Dr Sidhu Nephrology-Dr. Brown Infectious disease-Dr. Headley Procedures: MRI: FINDINGS: Significant abnormal diminished T1 and elevated T2 signal is seen in the second metatarsal head and proximal phalanx, very distal aspect of third metatarsal stump as well as the proximal phalanx of the fourth toe compatible with moderately severe osteomyelitis. The tissues are moderately inflamed and edematous. With poorly defined phlegmonous tissue present. An abscess is not identified. IMPRESSION: Moderate osteomyelitis is present as detailed. Medical problem list: Moderate osteomyelitis to the 2nd right metatarsal head/proximal phalanx, distal aspect of the 3rd metatarsal stump, and proximal phalanx of the 4th toe Chronic renal disease stage 4 Hypertension Diabetes mellitus type 2 insulin-dependent Anemia of chronic disease Hospital Course: Patient presented with osteomyelitis of the right foot. MRI showed osteomyelitis to the 2nd right metatarsal head/proximal phalanx, distal aspect of the 3rd metatarsal stump, and proximal phalanx of the 4th toe. Patient was seen and evaluated by infectious disease and surgery. No surgical intervention was required. Infectious Disease recommended continued wound care and IV antibiotic therapy for 6 weeks. Wound culture was positive for Klebsiella, Morganella and Enterococcus. At discharge patient will go to skilled facility to continue wound care and IV antibiotic therapy. Patient will continue with ampicillin 250 mg 1 pill twice daily for 6 weeks. Patient will also continue with IV Cipro 250 mg every 24 hr for 6 weeks. Recommend to monitor lab-BMP twice a week. Recommend follow up at the [facility] to further monitor. Patient may also be monitored by Infectious Disease at the skilled facility. Patient with chronic renal disease stage IV. This has remained stable. Patient seen by nephrology. At discharge he will continue with sodium bicarbonate. Patient with hypertension, diabetes mellitus type 2 insulin dependent and anemia of chronic disease. At discharge patient will continue with current medications. This includes Lantus 10 units subcu daily for diabetes. Recommend to monitor blood sugars at least twice daily. If blood sugar remains above 200 consistently then Lantus can be increased by 2 units daily until blood sugar is better controlled. Further adjustment can be done by the skilled facility physician. <Alphonse Luther - Last Filed: 11/26/19 17:17> Disposition: TRANSFER TO [facility] Discharge Condition: FAIR Vital Signs/Physical Exam: Temp Pulse Resp BP Pulse Ox 98.7 F 57 17 130/66 94 11/26/19 12:00 11/26/19 12:00 11/26/19 12:00 11/26/19 12:00 11/26/19 12:00 General: Alert, In no apparent distress, Oriented x3 HEENT: PERRLA, Mucous membr. moist/pink, EOMI Neck: Supple, 2+ carotid pulse no bruit, No Thyromegaly Respiratory: Clear to auscultation bilaterally, Normal air movement Cardiovascular: No edema, Normal pulses, Regular rate/rhythm, Normal S1 S2, No gallops, No rubs, No murmurs Capillary refill: <2 Seconds Gastrointestinal: Normal bowel sounds, Soft and benign, Non-distended, No ascites, No tenderness, No masses, No rebound, No guarding Musculoskeletal: No clubbing, No swelling Integumentary: Other (Patient has osteomyelitis and cellulitis to the right foot in between the 2nd and 4th toes where his amputation had occurred. Open wound noted. Only mild erythema present at this time.) Neurological: Normal speech, Normal strength at 5/5 x4 extr, Normal tone, Cranial nerves 3-12 intact, Normal reflexes 2+, Normal affect, Abnormal sensation (Diabetic neuropathy present) Lymphatics: No axilla or inguinal lymphadenopathy Laboratory Data at Discharge: WBC 6.5 K/uL (4.3-10.9) 11/26/19 05:27 Hgb 9.2 g/dL (13.6-17.9) L 11/26/19 05:27 Hct 27.1 % (39.6-49.0) L 11/26/19 05:27 Plt Count 198 K/uL (152-406) 11/26/19 05:27 PT 15.9 SECONDS (9.5-12.5) H 11/19/19 16:55 INR 1.36 11/19/19 16:55 APTT 24.6 SECONDS (24.3-36.9) 11/19/19 16:55 Sodium 139 mmol/L (136-145) 11/26/19 05:27 Potassium 4.5 mmol/L (3.5-5.1) 11/26/19 05:27 BUN 61 mg/dL (7-18) H 11/26/19 05:27 Creatinine 4.06 mg/dL (0.55-1.3) H 11/26/19 05:27 Glucose 207 mg/dL (74-106) H 11/26/19 05:27 Total Bilirubin 0.2 mg/dL (0.2-1.0) 11/24/19 05:23 AST 10 U/L (15-37) L 11/24/19 05:23 ALT 9 U/L (12-78) L 11/24/19 05:23 Alkaline Phosphatase 78 U/L (45-117) 11/24/19 05:23 Lipase Cancelled 11/19/19 16:55 <Shane Burroughs - Last Filed: 11/26/19 15:21> Vital Signs/Physical Exam: Temp Pulse Resp BP Pulse Ox 98.5 F 61 17 125/69 93 11/26/19 16:00 11/26/19 16:44 11/26/19 16:00 11/26/19 16:44 11/26/19 16:00 Laboratory Data at Discharge: WBC 6.5 K/uL (4.3-10.9) 11/26/19 05:27 Hgb 9.2 g/dL (13.6-17.9) L 11/26/19 05:27 Hct 27.1 % (39.6-49.0) L 11/26/19 05:27 Plt Count 198 K/uL (152-406) 11/26/19 05:27 PT 15.9 SECONDS (9.5-12.5) H 11/19/19 16:55 INR 1.36 11/19/19 16:55 APTT 24.6 SECONDS (24.3-36.9) 11/19/19 16:55 Sodium 139 mmol/L (136-145) 11/26/19 05:27 Potassium 4.5 mmol/L (3.5-5.1) 11/26/19 05:27 BUN 61 mg/dL (7-18) H 11/26/19 05:27 Creatinine 4.06 mg/dL (0.55-1.3) H 11/26/19 05:27 Glucose 207 mg/dL (74-106) H 11/26/19 05:27 Total Bilirubin 0.2 mg/dL (0.2-1.0) 11/24/19 05:23 AST 10 U/L (15-37) L 11/24/19 05:23 ALT 9 U/L (12-78) L 11/24/19 05:23 Alkaline Phosphatase 78 U/L (45-117) 11/24/19 05:23 Lipase Cancelled 11/19/19 16:55 <Alphonse Luther - Last Filed: 11/26/19 17:17> Patient Discharge Instructions: Patient is to continue home medications as prescribed. Patient will be on IV antibiotics for the next 6 weeks. Patient is to follow up with infectious disease after course of treatment is completed. Patient will need to follow up with nephrology for chronic kidney disease. If patient were to get worse patient needs to come back to the emergency room for further evaluation. Patient to ambulate as tolerated. Patient to have at least b.i.d. glucose checks. May increase Lantus by 2 units per day if glucose remains over 200. May start patient on sliding scale him glucose is uncontrolled. Patient is to have 200 mg IV Q24 hr for a Cipro x6 weeks. Patient to have 250 mg p.o. q.12 hr ampicillin x6 weeks Diet: ADA Activity: Ad john Time spent managing pt's care (in minutes): 60 <Shane Burroughs - Last Filed: 11/26/19 15:21> Activity: Fall precautions <Alphonse Luther - Last Filed: 11/26/19 17:17> Home Medications: Amlodipine [Norvasc*] 10 mg PO DAILY 11/26/19 Amlodipine [Norvasc*] 10 mg PO DAILY #30 tab 11/26/19 Ampicillin Trihydrate 250 mg PO BID #84 capsule 11/26/19 Aspirin 81 mg PO DAILY 11/26/19 Insulin 70/30 NPH/Reg Human [Novolin 70/30*] 8 unit SQ BID 11/26/19 Insulin Glargine,Hum.rec.anlog [Lantus] 10 unit SQ DAILY #1 bottle 11/26/19 Metoprolol Tartrate [Lopressor*] 25 mg PO BID 6AM 6PM #60 tab 11/26/19 Na Bicarb Tab [Sodium Bicarb 325 MG Tab*] 650 mg PO BID #120 tab 11/26/19 Nitroglycerin [Nitrostat*] 0.4 mg SL PRN PRN MDD X 3 within 15 min 11/26/19 hydroCHLOROthiazide [Hydrochlorothiazide*] 25 mg PO DAILY 11/26/19 New Medications: Amlodipine [Norvasc*] 10 mg PO DAILY #30 tab Ampicillin Trihydrate 250 mg PO BID #84 capsule Insulin Glargine,Hum.rec.anlog [Lantus] 10 unit SQ DAILY #1 bottle Metoprolol Tartrate [Lopressor*] 25 mg PO BID 6AM 6PM #60 tab Na Bicarb Tab [Sodium Bicarb 325 MG Tab*] 650 mg PO BID #120 tab Followup: Roderick Headley MD [ACTIVE - CAN ADMIT] -
[2019-11-26] MEDS: ENOXAPARIN 30 MG/0.3 ML SQ SCH (16:46)
[2019-11-26 16:47] VITALS: BP 125/69; TEMP 98.5
--- NOTE | 2019-11-27 01:53 | PN ---
Date of Progress Note: 11/26/2019 Chief Complaint: Diabetic kidney disease, hypertensive kidney disease, chronic kidney disease stage 4, baseline creatinine 3.1. Patient has history of coronary artery disease and poor compliance with medication. Patient was found to have open wound and had workup done to rule out osteomyelitis. He was found to have osteomyelitis. He is on vancomycin. Creatinine level on admission was 3.4. Patient developed acute on chronic kidney injury secondary to prerenal azotemia, volume depletion although he was complaining of legs edema and received Lasix. Review of Systems: Denies PND, orthopnea. Physical Examination: Lungs: Clear to auscultation bilaterally. Heart: S1, S2. Abdomen: Soft, benign. Extremities: Edema present in both legs. Laboratory Work: Chemistry showed sodium 139, potassium 4.5, chloride 110, CO2 of 21, BUN 61, creatinine 4.06. Impression And Plan: 1. Acute on chronic kidney injury. Renal function has not improved. Patient has advanced chronic kidney. Patient presented with lower extremity nonhealing wound, osteomyelitis. He may require debridement and antibiotic therapy. Patient is on vancomycin. Recommend to monitor closely. Vancomycin toxicity panel. 2. Hypertension. Continue blood pressure medication. Avoid excessive diuretic for volume control because of acute kidney injury. Continue low- sodium diet. I spent total 36 min including 25 min to coordinate care plan. ERIC/TIM Voice ID: [id number] Report ID: [id number]
[2019-11-27] MEDS ORDERED: Ciprofloxacin 200mg IV 200 MG/100 ML IV.SOLN. IV SCH (09:00)
== END 2019-11-26 18:50 | DRG 638 ==
LOC: ER 15:17 → ERHOLD 18:45 → 4TH 22:34
PROVIDERS: ADMIT Family Medicine; ATTEND Family Medicine
PROC: 02HV33Z Insertion of Infusion Device into Superior Vena Cava, Percutaneous Approach (ICD-10-PCS; principal; 2019-11-23)
DX: E11.69 Type 2 diabetes mellitus with other specified complication (principal); M86.171 Other acute osteomyelitis, right ankle and foot; L03.115 Cellulitis of right lower limb; B96.1 Klebsiella pneumoniae [K. pneumoniae] as the cause of diseases classified elsewhere; B95.2 Enterococcus as the cause of diseases classified elsewhere; I12.9 Hypertensive chronic kidney disease with stage 1 through stage 4 chronic kidney disease, or unspecified chronic kidney disease; E11.22 Type 2 diabetes mellitus with diabetic chronic kidney disease; N18.4 Chronic kidney disease, stage 4 (severe); N17.9 Acute kidney failure, unspecified; E11.621 Type 2 diabetes mellitus with foot ulcer; I25.10 Atherosclerotic heart disease of native coronary artery without angina pectoris; D63.1 Anemia in chronic kidney disease; I25.2 Old myocardial infarction; Z95.5 Presence of coronary angioplasty implant and graft; Z79.4 Long term (current) use of insulin; Z91.14 Patient's other noncompliance with medication regimen
CPT/HCPCS: 36415; 36569; 71045; 76770; 80048; 80053; 80076; 80202; 81003; 82550; 82565; 82570; 82728; 82947; 83036; 83540; 83605; 83690; 84145; 84156; 84300; 84466; 85025; 85610; 85730; 86850; 86900; 86901; 87040; 87070; 87077; 87186; 87205; 93005; 96361; 96365; 96366; 96368; 96375; 97116; 97161; 99285; C9113; J0290; J0692; J0744; J1650; J1940; J2405; J3010; J7030; J7040

== ENCOUNTER 2020-01-29 02:17 | Observation (INO) | payer OTHER ==
--- OUTSIDE RECORDS SUMMARY | 2020-01-29 02:20 | XMS REPORT | Clinical Summary ---
:1950 Author Organization [facility] Address [address] [place] [address] Care Team Providers Name Role Phone Pcp, No Primary Care Provider Unavailable Allergies No Known Allergies Medications Medication Sig Dispensed Refills Start End Date Status Date albuterol Take 2.5 mg by 0 Activ e (PROVENTIL) 2.5 nebulization every mg /3 mL (0.083 4 (four) hours as %) nebulizer needed for solution Wheezing. insulin aspart Inject 0 Activ e U-100 (NOVOLOG) subcutaneously as 100 unit/mL needed for High injection Blood Sugar. Missing or Inject 3.375 mg 0 09/12/19 Dis continued Non-Formulary intravenously every 20 Medication 6 (six) hours Zosyn IV Q6hrs . metoprolol Take 50 mg by mouth 0 09/12/19 Discontinued (LOPRESSOR) 50 MG 2 (two) times 20 tablet daily. sertraline Take 50 mg by mouth 0 09/12/19 Discontinued (ZOLOFT) 50 MG daily. 20 tablet traMADol (ULTRAM) Take 100 mg by 0 0 Discontinued 50 mg tablet mouth every 4 20 (four) hours as needed for Pain. codeine-guaifenes Take 5 mLs by mouth 0 Discontinued in (GUAIFENESIN every 4 (four) 20 AC) 10-100 mg/5 hours as needed for mL liquid Cough. gabapentin Take 300 mg by 0 09/12/19 Disc ontinued (NEURONTIN) 300 mouth 3 (three) 20 MG capsule times daily. amLODIPine Take 10 mg by mouth 0 09/12/19 Discontinued (NORVASC) 10 MG daily. 20 tablet aspirin 325 MG Take 325 mg by 0 09/12/19 Discontinued tablet mouth daily. 20 atorvastatin Take 80 mg by mouth 0 0 Discontinued (LIPITOR) 80 MG daily. 20 tablet isosorbide Take 20 mg by mouth 0 09/12/19 Discontinued mononitrate 2 (two) times 20 (ISMO,MONOKET) 20 daily. MG tablet isosorbide Take 30 mg by mouth 0 09/12/19 Discontinued mononitrate daily. 20 (IMDUR) 30 MG 24 hr tablet insulin NPH 100 Inject 10 Units 0 09/12/19 Discontinued unit/mL (3 mL) subcutaneously 2 20 InPn (two) times daily before meals. amLODIPine Take 1 tablet (10 30 tablet 0 10/13/19 E xpired (NORVASC) 10 MG mg total) by mouth 0 20 tablet daily for 30 days. aspirin 81 MG Take 1 tablet (81 30 tablet 0 10/13/19 chewable tablet mg total) by mouth 0 20 daily for 30 days. atorvastatin Take 1 tablet (80 30 tablet 0 10/12/19 (LIPITOR) 80 MG mg total) by mouth 0 20 tablet nightly for 30 days. gabapentin Take 1 capsule (300 90 capsule 0 10/12/19 (NEURONTIN) 300 mg total) by mouth 0 20 MG capsule 3 (three) times daily for 30 days. insulin NPH 100 Inject 0.1 mLs (10 6 mL 0 10/12 unit/mL (3 mL) Units total) 0 20 InPn subcutaneously 2 (two) times daily before meals for 30 days. isosorbide Take 1 tablet (30 30 tablet 0 10/12/19 E xpired mononitrate mg total) by mouth 0 20 (IMDUR) 30 MG 24 daily for 30 days. hr tablet metoprolol Take 1 tablet (25 60 tablet 0 10/12/19 E xpired (LOPRESSOR) 25 MG mg total) by mouth 0 20 tablet 2 (two) times daily for 30 days. sertraline Take 1 tablet (50 30 tablet 0 10/12/19 E xpired (ZOLOFT) 50 MG mg total) by mouth 0 20 tablet daily for 30 days. furosemide Take 1 tablet (40 30 tablet 0 10/12/19 E xpired (LASIX) 40 MG mg total) by mouth 0 20 tablet daily for 30 days. potassium Take 20 mEq by 30 tablet 0 10/12/19 Expir ed chloride 20 mEq mouth daily for 30 0 20 TbER days. doxycycline Take 1 capsule (100 14 capsule 0 0 (MONODOX) 100 MG mg total) by mouth 0 20 capsule 2 (two) times daily for 7 days. Active Problems Problem Noted Date Congestive heart failure (CHF) 09/10/2019 Encounters Date Type Specialty Care Team Description 09/10/2019 - Hospital Encounter General Internal Yessica Herr Acute on chronic 09/12/2019 Medicine MD Lori diastolic conge stive heart failure ( HCC) (Primary Dx) 09/10/2019 Travel 09/09/2019 Hospital Encounter after 01/28/2019 Social History Tobacco Use Types Packs/Day Years Used Date Never Smoker Sex Assigned at Date Recorded Not on file Job Start Date Occupation Industry Not on file Not on file Not on file Travel History Travel Start Travel End No recent travel history available. Last Filed Vital Signs Vital Sign Reading Time Taken Blood Pressure 162/82 09/12/2019 11:40 AM SKILL TRAINING PROGRAM COORDINATOR Pulse 64 09/12/2019 11:40 AM SKILL TRAINING PROGRAM COORDINATOR Temperature 36 C (96.8 F) 09/12/2019 11:40 AM SKILL TRAINING PROGRAM COORDINATOR Respiratory Rate 18 09/12/2019 11:40 AM SKILL TRAINING PROGRAM COORDINATOR Oxygen Saturation 93% 09/12/2019 11:40 AM SKILL TRAINING PROGRAM COORDINATOR Inhaled Oxygen Concentration 32% 09/12/2019 8:26 AM SKILL TRAINING PROGRAM COORDINATOR Weight 94.8 kg (208 lb 14.4 oz) 09/10/2019 5:3 6 AM SKILL TRAINING PROGRAM COORDINATOR Height 180.3 cm (5' 11") 09/10/2019 5:36 AM SKILL TRAINING PROGRAM COORDINATOR Body Mass Index 29.14 09/10/2019 5:36 AM SKILL TRAINING PROGRAM COORDINATOR Plan of Treatment Not on file Procedures Procedure Name Priority Date/Time Associated Comments Diagnosis REPORT OF PROCEDURE - 09/14/2019 9:51 ENDOSCOPY SCAN AM SKILL TRAINING PROGRAM COORDINATOR RHYTHM STRIP - SCAN 09/14/2019 9:51 AM SKILL TRAINING PROGRAM COORDINATOR POCT-GLUCOSE METER Routine 09/12/2019 11:36 Resul ts for this AM SKILL TRAINING PROGRAM COORDINATOR procedure are i n the results section. POCT-GLUCOSE METER Routine 09/12/2019 7:44 Resul ts for this AM SKILL TRAINING PROGRAM COORDINATOR procedure are i n the results section. (MANUAL DIFFERENTIAL) Routine 09/12/2019 6:10 Re sults for this AM SKILL TRAINING PROGRAM COORDINATOR procedure are i n the results section. CBC W/PLT COUNT & AUTO Routine 09/12/2019 6:10 R esults for this DIFFERENTIAL AM SKILL TRAINING PROGRAM COORDINATOR procedure are i n the results section. COMPREHENSIVE METABOLIC Routine 09/12/2019 6:10 Results for this PANEL AM SKILL TRAINING PROGRAM COORDINATOR procedure are i n the results section. CBC W/PLT COUNT & AUTO Routine 09/12/2019 6:10 R esults for this DIFFERENTIAL AM SKILL TRAINING PROGRAM COORDINATOR procedure are i n the results section. POCT-GLUCOSE METER Routine 09/11/2019 8:10 Resul ts for this PM SKILL TRAINING PROGRAM COORDINATOR procedure are i n the results section. POCT-GLUCOSE METER Routine 09/11/2019 5:15 Resul ts for this PM SKILL TRAINING PROGRAM COORDINATOR procedure are i n the results section. POCT-GLUCOSE METER Routine 09/11/2019 11:50 Resul ts for this AM SKILL TRAINING PROGRAM COORDINATOR procedure are i n the results section. POCT-GLUCOSE METER Routine 09/11/2019 8:12 Resul ts for this AM SKILL TRAINING PROGRAM COORDINATOR procedure are i n the results section. CBC W/PLT COUNT & AUTO Routine 09/11/2019 4:37 R esults for this DIFFERENTIAL AM SKILL TRAINING PROGRAM COORDINATOR procedure are i n the results section. COMPREHENSIVE METABOLIC Routine 09/11/2019 4:37 Results for this PANEL AM SKILL TRAINING PROGRAM COORDINATOR procedure are i n the results section. CBC W/PLT COUNT & AUTO Routine 09/11/2019 4:37 R esults for this DIFFERENTIAL AM SKILL TRAINING PROGRAM COORDINATOR procedure are i n the results section. ECHOCARDIOGRAM REPORT - 09/10/2019 9:10 SCAN PM SKILL TRAINING PROGRAM COORDINATOR POCT-GLUCOSE METER Routine 09/10/2019 8:33 Resul ts for this PM SKILL TRAINING PROGRAM COORDINATOR procedure are i n the results section. RESPIRATORY PANEL [facility] Routine 09/10/2019 7:53 R esults for this PM SKILL TRAINING PROGRAM COORDINATOR procedure are i n the results section. US ABDOMEN COMPLETE Routine 09/10/2019 5:30 Resu lts for this PM SKILL TRAINING PROGRAM COORDINATOR procedure are i n the results section. POCT-GLUCOSE METER Routine 09/10/2019 4:45 Resul ts for this PM SKILL TRAINING PROGRAM COORDINATOR procedure are i n the results section. TROPONIN I Routine 09/10/2019 4:20 Results for this PM SKILL TRAINING PROGRAM COORDINATOR procedure are i n the results section. 2D ECHO W/ DOPPLER Routine 09/10/2019 1:01 Resul ts for this (CW/PW/COLOR) PM SKILL TRAINING PROGRAM COORDINATOR procedure are in the results section. POCT-GLUCOSE METER Routine 09/10/2019 11:52 Resul ts for this AM SKILL TRAINING PROGRAM COORDINATOR procedure are i n the results section. WOUND CULTURE + GRAM Routine 09/10/2019 11:18 Res ults for this STAIN AM SKILL TRAINING PROGRAM COORDINATOR procedure are i n the results section. BLOOD CULTURE Routine 09/10/2019 8:54 Results fo r this AM SKILL TRAINING PROGRAM COORDINATOR procedure are i n the results section. CBC W/PLT COUNT & AUTO Routine 09/10/2019 8:40 R esults for this DIFFERENTIAL AM SKILL TRAINING PROGRAM COORDINATOR procedure are i n the results section. TROPONIN I Routine 09/10/2019 8:40 Results for this AM SKILL TRAINING PROGRAM COORDINATOR procedure are i n the results section. URINALYSIS W/ REFLEX Routine 09/10/2019 8:40 Res ults for this URINE CULTURE AM SKILL TRAINING PROGRAM COORDINATOR procedure are in the results section. B-TYPE NATRIURETIC Routine 09/10/2019 8:40 Resul ts for this FACTOR (BNP) AM SKILL TRAINING PROGRAM COORDINATOR procedure are i n the results section. TSH/FREE T4 IF Routine 09/10/2019 8:40 Results f or this INDICATED AM SKILL TRAINING PROGRAM COORDINATOR procedure are i n the results section. HEMOGLOBIN A1C Routine 09/10/2019 8:40 Results f or this AM SKILL TRAINING PROGRAM COORDINATOR procedure are i n the results section. LIPID PANEL Routine 09/10/2019 8:40 Results for this AM SKILL TRAINING PROGRAM COORDINATOR procedure are i n the results section. CBC W/PLT COUNT & AUTO Routine 09/10/2019 8:40 R esults for this DIFFERENTIAL AM SKILL TRAINING PROGRAM COORDINATOR procedure are i n the results section. MAGNESIUM Routine 09/10/2019 8:40 Results for this AM SKILL TRAINING PROGRAM COORDINATOR procedure are i n the results section. COMPREHENSIVE METABOLIC Routine 09/10/2019 8:40 Results for this PANEL AM SKILL TRAINING PROGRAM COORDINATOR procedure are i n the results section. BLOOD CULTURE Routine 09/10/2019 8:40 Results fo r this AM SKILL TRAINING PROGRAM COORDINATOR procedure are i n the results section. XR CHEST 1 VIEW Routine 09/10/2019 8:17 Results for this PORTABLE/BEDSIDE AM SKILL TRAINING PROGRAM COORDINATOR procedure a re in the results section. POCT-GLUCOSE METER Routine 09/10/2019 8:01 Resul ts for this AM SKILL TRAINING PROGRAM COORDINATOR procedure are i n the results section. POCT-GLUCOSE METER Routine 09/10/2019 5:33 Resul ts for this AM SKILL TRAINING PROGRAM COORDINATOR procedure are i n the results section. after 01/28/2019 Results EKG-SCANNED (09/14/2019 9:51 AM SKILL TRAINING PROGRAM COORDINATOR) Narrative Performed At This result has an attachment that is no t available. RHYTHM STRIP - SCAN (09/14/2019 9:51 AM SKILL TRAINING PROGRAM COORDINATOR) Narrative Performed At This result has an attachment that is no t available. POC-Glucose meter (09/12/2019 11:36 AM SKILL TRAINING PROGRAM COORDINATOR)Only the most recent of11 results within the time period is included. POC-Glucose Meter 116 (H)Comment: : Notified 70 - 110 mg/dL [facility] RN/MD: TESTED AT [facility] [address] [facility] [place] [id number]: Cotton Classer/Neurological Surgery Teacher ID = [id number] for Livia Garber Specimen Blood Performing Organization Address City/State/Zipcode Phone Number [facility] [address] [place] [address] CENTER Manual Differential (09/12/2019 6:10 AM SKILL TRAINING PROGRAM COORDINATOR) % Neutros (manual) 64 % [facility] % Lymphs (manual) 23 % [facility] % Monos (manual) 4 % [facility] % Eos (manual) 1 % [facility] % Bands (manual) 8 0 - 10 % [facility] # Neutros (manual) 3.20 1.80 - 8.00 K/L [facility] # Lymphs (manual) 1.15 (L) 1.48 - 4.50 K/L [facility] # Monos (manual) 0.20 0.00 - 1.30 K/L [facility] # Eos (manual) 0.05 0.00 - 0.50 K/L [facility] # Bands (manual) 0.4 0.0 - 0.8 K/L [facility] Total Counted 100 [facility] Bands plus Segmented Neutrophils 3.60 [facility] WBC Morphology Normal [facility] Platelet Morphology Normal [facility] Anisocytosis 1+ few [facility] Specimen Blood Performing Organization Address City/State/Zipcode Phone Number [facility] [address] [place], [place] [address] CBC with platelet count + automated diff (09/12/2019 6:10 AM SKILL TRAINING PROGRAM COORDINATOR)Only the most recent of3 resultswithin the time period is included. WBC 5.0 4.0 - 10.0 K/L [facility] RBC 3.84 (L) 4.20 - 5.80 M/L [facility] Hemoglobin 11.3 (L) 13.0 - 16.8 GM/DL [facility] Hematocrit 34.4 (L) 36.0 - 50.0 % [facility] MCV 89.6 82.0 - 99.0 fL [facility] MCH 29.4 27.0 - 33.0 pg [facility] MCHC 32.8 32.0 - 36.0 GM/DL [facility] RDW 13.0 12.0 - 15.0 % [facility] Platelets 176 150 - 430 K/CU MM [facility] MPV 10.4 6.0 - 11.5 fL [facility] nRBC 0 0 - 0 /100 WBC [facility] Specimen Blood Performing Organization Address City/State/Zipcode Phone Number [facility] [address] [phone] Comprehensive metabolic panel (09/12/2019 6:10 AM SKILL TRAINING PROGRAM COORDINATOR)Only the most recent of3 resultswithin the time period is included. Protein, Total 6.7 6.0 - 8.5 gm/dL [facility] Albumin 3.0 (L) 3.5 - 5.0 g/dL [facility] Alkaline Phosphatase 88 30 - 115 U/L [facility] Total Bilirubin 0.5 0.1 - 1.2 mg/dL [facility] Sodium 141 135 - 148 meq/L [facility] Potassium 4.0 3.6 - 5.5 meq/L [facility] Chloride 103 98 - 106 meq/L [facility] CO2 30 (H) 20 - 29 meq/L [facility] BUN 32 (H) 10 - 26 mg/dL [facility] Creatinine 3.01 (H) 0.50 - 1.20 mg/dL [facility] Glucose 105 70 - 110 mg/dL [facility] Calcium 8.6 8.5 - 10.5 mg/dL [facility] AST 20 5 - 40 U/L [facility] ALT 11 5 - 50 U/L [facility] EGFR 21Comment: ESTIMATED GFR mL/min/1.73 sq m [facility] IS NOT ACCURATE CREATININE CLEARANCE IN PREDICTING GLOMERULAR FILTRATION RATE. ESTIMATED GFR IS NOT APPLICABLE FOR DIALYSIS PATIENTS. Specimen Blood Performing Organization Address City/State/Zipcode Phone Number [facility] [address] [facility] [place], [place] [address] ECHOCARDIOGRAM REPORT - SCAN (09/10/2019 9:10 PM SKILL TRAINING PROGRAM COORDINATOR) Narrative Performed At This result has an attachment that is no t available. Respiratory Panel [facility] (09/10/2019 7:53 PM SKILL TRAINING PROGRAM COORDINATOR) Human Metapneumovirus Not detected Not detected, [facility] Rhinovirus Not detected Not detected, [facility] Influenza A Not detected Not detected, [facility] INFLUENZA A (NO SUBTYPE) [facility] Influenza A subtype H1 [facility] Influenza A Subtype H3 [facility] Influenza A Subtype [facility] H1-2009 [facility] Influenza B Not detected Not detected, [facility] Respiratory Syncytial Detected (A)Comment: Not detected, [facility] Virus Assay is not able [facility] differentiate between RSV CENTER A and RSV B.Contact isolation if immunosuppressed or young children. Consider stopping antibiotics. Parainfluenza Virus 1 Not detected Not detected, [facility] Parainfluenza Virus 2 Not detected Not detected, [facility] Parainfluenza virus 3 Not detected Not detected, [facility] Parainfluenza Virus 4 Not detected Not detected, [facility] Adenovirus Not detected Not detected, [facility] Coronavirus 229E Not detected Not detected, [facility] Coronavirus HKU1 Not detected Not detected, [facility] Coronavirus NL63 Not detected Not detected, [facility] Coronavirus OC43 Not detected Not detected, [facility] Bordetella Pertussis Not detected Not detected, [facility] Chlamydophila Pneumoniae Not detected Not detected, [facility] Mycoplasma Pneumoniae Not detected Not detected, [facility] Specimen Nasopharyngeal Narrative Performed At Other viruses and bacteria not targeted by [facility] this PCR panel cannot be excluded; therefore clinical correlation and follow up of serology, culture results, and other molecular studies is required. The results are not intended to be used as the sole means for clinical diagnosis or patient management decisions. This sample was tested at the [facility] using the DistalMotionArray Respiratory Panel. It is FDA cleared and has been verified and approved by the [facility] for clinical use on nasopharyngeal swab specimens. The performance of the FilmArray RP has not been established in individuals who received influenza vaccine.Recent administration of a nasal influenza vaccine may cause false positive results for Influenza A and/or Influenza B. Performing Organization Address City/State/Zipcode Phone Number [facility] [address] [place] [address] CENTER US abdomen complete (09/10/2019 5:30 PM SKILL TRAINING PROGRAM COORDINATOR) Specimen Narrative Performed At FINAL REPORT Trippifi History: Abdominal pain and renal failur e Abdominal ultrasound dated 09/10/2019 Comparison: None Comment:Real-time transabdominal ult rasound of the abdomen was performed. Liver: 15.0 cm , normal. Normal echogeni city. No focal lesions. Gallbladder: No gallstones. Diffuse gall bladder wall thickening, measuring 4 mm. No perocholecystic fluid .. No sonographic García's sign. The transverse diameter of the gal lbladder lumen measures 2.4 cm. Biliary tree: No intrahepatic ductal dil atation. CBD: 4 mm. MPV: 11 mm Spleen: Normal size and echogenicity. Pancreas: Obscured by overlying bowel ga s Right kidney: 9.4 x 6.0 x 5.8 cm. Normal echogenicity. Left kidney: 10.7 x 6.0 x 5.3 cm. Normal echogenicity. No ascites is present in the abdomen. The visualized abdominal aorta is normal in caliber. The IVC and Hepatic veins are patent. Impression: Diffuse gallbladder wall thickening, a n onspecific appearance in the absence of visualized cholelithiasis. If there is concern for gallbladder disease or dysfunction furth er evaluation with hepatobiliary nuclear medicine imaging c an be obtained. Unremarkable ultrasound appearance of th e kidneys. Signed: Reilly Haines MD Report Verified Date/Time:09/11/2019 01:31:39 Procedure Note Interface, External Ris In - 09/11/2019 1:33 AM SKILL TRAINING PROGRAM COORDINATOR FINAL REPORT History: Abdominal pain and renal failur e Abdominal ultrasound dated 09/10/2019 Comparison: None Comment: Real-time transabdominal ultra sound of the abdomen was performed. Liver: 15.0 cm , normal. Normal echogeni city. No focal lesions. Gallbladder: No gallstones. Diffuse gall bladder wall thickening, measuring 4 mm. No perocholecystic fluid .. No sonographic García's sign. The transverse diameter of the gal lbladder lumen measures 2.4 cm. Biliary tree: No intrahepatic ductal dil atation. CBD: 4 mm. MPV: 11 mm Spleen: Normal size and echogenicity. Pancreas: Obscured by overlying bowel ga s Right kidney: 9.4 x 6.0 x 5.8 cm. Normal echogenicity. Left kidney: 10.7 x 6.0 x 5.3 cm. Normal echogenicity. No ascites is present in the abdomen. The visualized abdominal aorta is normal in caliber. The IVC and Hepatic veins are patent. Impression: Diffuse gallbladder wall thickening, a n onspecific appearance in the absence of visualized cholelithiasis. If there is concern for gallbladder disease or dysfunction furth er evaluation with hepatobiliary nuclear medicine imaging c an be obtained. Unremarkable ultrasound appearance of th e kidneys. Signed: Reilly Haines MD Report Verified Date/Time: 09/11/2019 0 1:31:39 Performing Organization Address City/State/Zipcode Phone Number [facility] Troponin I (09/10/2019 4:20 PM SKILL TRAINING PROGRAM COORDINATOR)Only the most recent of2 resultswithin the time period is included. Troponin I <0.03 0.00 - 0.15 ng/mL [facility] Specimen Blood Narrative Performed At Troponin I (TnI) levels must be interpreted in the con text of [facility] the presenting symptoms and the clinical findings. Clarissa vated TnI levels indicate myocardial damage, but are not specifi c for ischemic heart disease. Elevated TnI levels are seen i n patients with other cardiac conditions (including myoc arditis and congestive heart failure), and slight TnI elevatio ns occur in patients with other conditions, including sepsis, r enal failure, acidosis, acute neurological disease, and per sistent tachyarrhythmia. Performing Organization Address City/State/Zipcode Phone Number [facility] [address] [phone] 2D Echo W/Doppler(CW/PW/Color) (09/10/2019 1:01 PM SKILL TRAINING PROGRAM COORDINATOR) Ejection Fraction [facility] ECHO HEAR [facility] [employer] [facility] Specimen Narrative Performed At Transthoracic Echocardiography Report (T TE) [facility] ECHO HEARTLAB [employer] [facility] Demographics Patient NamePIMATT SHEN Date [facility]/10[id number] Race Unknown Number [id number] Number Date of 1950 Referring Physician Age 69 year(s) Weights And Measures Sealer Julieta messina [facility] InterpretingQuoc mariah Brown MD. Physician Procedure Type of Study TTE procedure:2DECHO W DOPPLER(CW/PW/COLOR) (Routine) Indications:Dyspnea/SOB. Clinical History CKD, HTN, DM Height: 70 inches Weight: 94.35 kg (208 lbs) BSA: 2.12 m^2 BMI: 29.84 kg/m^2 HR: 53 bpm BP: 165/80 mmHg Summary Technically difficult study with poor endocardial delineation. Normal LV systolic function with an estimated LVEF of 55-59%. Grade 1 diastolic dysfunction. Mild mitral regurgitation. Cannot estimate PA systolic pressure due insufficient TR jet. No pericardial effusion. No previous study to compare from. Signature Findings Left Ventricle The left ventricle is normal in size, wall th ickness, and contractility. Th e visual ejection fraction was estimated 55-59 %. Gr corky 1 diastolic dysfunction (impaired re laxation an d low-normal LA pressure). Left AtriumThe left atrium is not well visualized. Th e left atrium appears normal. Right VentricleThe right ventricular chamber size and systolic fu nction are within normal limits. Right Atrium RA size is normal. Aortic Valve The aortic valve is not well visualized, but ap pears normal. Th ere is no aortic stenosis. Th ere is no aortic regurgitation. Mitral Valve Mild MV leaflet thickening. Mi ld mitral regurgitation. Tricuspid ValveTV structure is normal. No evidence of tricuspid regurgitation. Es timated peak systolic PA pressure is can not be de termined due to inadequate TR velocity s ignal . Pulmonic Valve No evidence of pulmonary regurgitation. AortaAortic root size (SInus of Valsalva diameter) i s no rmal . PericardiumNo pericardial effusion is visualized. IVC/SVC/PA/PV/PleuralThe inferior vena cava size is normal . Chambers/Structures Left Ventricle LV Length: 9.79 cm Doppler/Quantitative Measurements Mitral Valve MV Peak E-Wave: 1.26 m/sMV Peak A-Wave: 1.22 m/s P1/2t: 69.7 msecE/A Ratio: 1.03 Peak Velocity: 1.34 m/s Peak Gradient: 6.33 mmHg Mean Velocity: 0.61 m/s Deceleration Time: 321.7 msec Mean Gradient: 2.12 mmHg MV Area (PHT): 3.16 cm^2 MV VTI: 41.69 cm MV [place]. Peak: Aortic Valve Peak Velocity: 1.41 m/s Mean Velocity: 0.84 m/s Peak Gradient: 8 mmHg Mean Gradient: 3.53 mmHg AV VTI: 26.81 cm AV DVI: 0.9 LVOT Peak Velocity: 0.97 m/s Peak Gradient: 3.93 mmHg Mean Velocity: 0.69 m/s Mean Gradient: 2.26 mmHg LVOT VTI: 24.1 cm Procedure Note Interface, External Ris In - 09/10/2019 4:36 PM SKILL TRAINING PROGRAM COORDINATOR Transthoracic Echocardiography Report (TTE) Demographics Patient Name MATT GARCIA Date of Study 09/10/2019 Gender Male Visit Number [id number] Race Unknown Room Num [facility] A511 Number Date of 1950 Dami carson Physician Age 69 year(s) Eliseo Hu [facility] karma Wilda Brown MD. Physicia n Procedure Type of Study TTE procedure:2DECHO W DOPPLE R(CW/PW/COLOR) (Routine) Indications:Dyspnea/SOB. Clinical History CKD, HTN, DM Height: 70 inches Weight: 94.35 kg (208 lbs) BSA: 2.12 m^2 BMI: 29.84 kg/m^2 HR: 53 bpm BP: 165/80 mmHg Summary Technically difficult study with poor e ndocardial delineation. Normal LV systolic function with an est imated LVEF of 55-59%. Grade 1 diastolic dysfunction. Mild mitral regurgitation. Cannot estimate PA systolic pressure du e insufficient TR jet. No pericardial effusion. No previous study to compare from. Signature Findings Left Ventricle The left ventric le is normal in size, wall thickness, and c ontractility. The visual eject ion fraction was estimated 55-59 %. Grade 1 diastoli c dysfunction (impaired relaxation and low-normal L A pressure). Left Atrium The left atrium is not well visualized. The left atrium appears normal. Right Ventricle The right ventri cular chamber size and systolic function are wit hin normal limits. Right Atrium RA size is anupam l. Aortic Valve The aortic valve is not well visualized, but appears normal. There is no aort ic stenosis. There is no aort ic regurgitation. Mitral Valve Mild MV leaflet thickening. Mild mitral regu rgitation. Tricuspid Valve TV structure is normal. No evidence of t ricuspid regurgitation. Estimated peak s ystolic PA pressure is cannot be determined due t o inadequate TR velocity signal . Pulmonic Valve No evidence of p ulmonary regurgitation. Aorta Aortic root size (SInus of Valsalva diameter) is normal . Pericardium No pericardial e ffusion is visualized. IVC/SVC/PA/PV/Pleural The inferior kashmir a cava size is normal . Chambers/Structures Left Ventricle LV Length: 9.79 cm Doppler/Quantitative Measurements Mitral Valve MV Peak E-Wave: 1.26 m/s MV Pe ak A-Wave: 1.22 m/s P1/2t: 69.7 msec E/A R atio: 1.03 Peak Velocity: 1.34 m/s Peak Gradient: 6.33 mmHg Mean Velocity: 0.61 m/s Decel eration Time: 321.7 msec Mean Gradient: 2.12 mmHg MV Area (PHT): 3.16 cm^2 MV VT I: 41.69 cm MV [place]. Peak: Aortic Valve Peak Velocity: 1.41 m/s Dominique n Velocity: 0.84 m/s Peak Gradient: 8 mmHg Dominique n Gradient: 3.53 mmHg AV VTI: 26.81 cm AV DVI: 0.9 LVOT Peak Velocity: 0.97 m/s Pea k Gradient: 3.93 mmHg Mean Velocity: 0.69 m/s Dominique n Gradient: 2.26 mmHg LVO T VTI: 24.1 cm Performing Organization Address City/State/Zipcode Phone Number [facility] Wound culture + gram stain (09/10/2019 11:18 AM SKILL TRAINING PROGRAM COORDINATOR) Result 4+ Acinetobacter baumannii complex [facility] (A) Gram Stain Result <1+ White blood cells seen [facility] Gram Stain Result <1+ gram negative rods [facility] Gram Stain Result <1+ gram positive cocci [facility] Specimen Wound Narrative Performed At 1+ Skin elaine [facility] Organism Antibiotic Method Susceptibility Acinetobacter baumannii complex Ampicillin + Sulbactam >=32: Resistant Acinetobacter baumannii complex Cefepime >=64: Resistant Acinetobacter baumannii complex Ceftriaxone >=64: Resistant Acinetobacter baumannii complex Gentamicin <=1: Susceptible Acinetobacter baumannii complex Levofloxacin >=8: Resistant Acinetobacter baumannii complex Meropenem >=16: Resistant Acinetobacter baumannii complex Tetracycline 8: Intermediate Acinetobacter baumannii complex Tobramycin <=1: Susceptible Acinetobacter baumannii complex Colistimethate 0.75: Susceptible Performing Organization Address [facility] Phone Number [place] [phone] [place], [place] [address] Blood Culture - Routine (Right Venipuncture) (09/10/2019 8:54 AM SKILL TRAINING PROGRAM COORDINATOR)Only the most recent of2 resultswithin the time period is included. Result No growth in 5 days [facility] Specimen Blood Performing Organization Address [facility] Phone Number [facility] [address] [place], [place] [phone] Urinalysis w/Microscopic + Reflex to Culture (09/10/2019 8:40 AM SKILL TRAINING PROGRAM COORDINATOR) Color, UA Yellow [facility] Clarity, UA Clear [facility] Specific [place], UA 1.025 1.001 - 1.035 [facility] pH, UA 6.0 5.0 - 8.0 [facility] Protein, UA >=300 mg/dL (A) Negative [facility] Glucose, UA Negative Negative [facility] Ketones, UA Negative Negative [facility] Bilirubin, UA Negative Negative [facility] Blood, UA Small (A) Negative [facility] Nitrite, UA Negative Negative [facility] Leukocytes, UA Negative Negative [facility] Urobilinogen, UA 0.2 0.2 - 1.0 mg/dL [facility] Bacteria, UA Moderate [facility] Amorphous Crystals Few [facility] RBC, UA None Seen /HPF [facility] WBC, UA <5 /HPF [facility] SQUAMOUS EPITHELIAL <5 /HPF [facility] Specimen Source [facility] Specimen Urine Performing Organization Address [facility] Phone Number [facility] [address] [place], [place] [address] TSH/Free T4 If Indicated (09/10/2019 8:40 AM SKILL TRAINING PROGRAM COORDINATOR) TSH 1.59 0.35 - 5.50 uIU/mL [facility] Specimen Blood Performing Organization Address [facility] Phone Number [facility] [address] [place] [address] B-type Natriuretic Factor (BNP) (09/10/2019 8:40 AM SKILL TRAINING PROGRAM COORDINATOR) BNP 196 (H) 0 - 100 pg/mL [facility] Specimen Blood Performing Organization Address [facility] Phone Number [facility] [address] [place], [place] [address] Magnesium (09/10/2019 8:40 AM SKILL TRAINING PROGRAM COORDINATOR) Magnesium 1.9 1.5 - 3.0 mg/dL [facility] Specimen Blood Performing Organization Address [facility] Phone Number [facility] [address] [place] [address] Hemoglobin A1c (09/10/2019 8:40 AM SKILL TRAINING PROGRAM COORDINATOR) Hemoglobin A1C 8.0 (H) 4.3 - 6.1 % [facility] Specimen Blood Performing Organization Address [facility] Phone Number [facility] [address] [place] [phone] Lipid panel (09/10/2019 8:40 AM SKILL TRAINING PROGRAM COORDINATOR) Triglycerides 120 mg/dL [facility] Cholesterol 99 mg/dL [facility] HDL 28 mg/dL [facility] LDL Calculated 47 mg/dL [facility] Specimen Blood Narrative Performed At Triglyceride Reference Range: [facility] Low Risk <150 [id number] High Risk 200-499 Very High Risk>=500 Cholesterol Reference Range: Low Risk <200 [id number] High Risk>240 HDL Cholesterol Reference Range: Low Risk >=60 High Risk <40 LDL Cholesterol Reference Range: Optimal<100 Near [id number] Very High >=190 Performing Organization Address City/State/Zipcode Phone Number [facility] [address] [facility] [place] [address] XR chest 1 view portable / bedside (09/10/2019 8:17 AM SKILL TRAINING PROGRAM COORDINATOR) Specimen Narrative Performed At FINAL REPORT [facility] Chest, 1 view, 09/10/2019 8:17 AM. History: Pneumonia. Comparison: Outside chest x-ray 09/08/20. Discussion:The cardiomediastinal kenji houette and pulmonary vasculature are within normal limits for a portable exam. Patchy left basilar consolidation is present, decrea sed compared to prior exam. Right upper extremity PICC is unchanged in position. The soft tissues and osseous structures are intact. IMPRESSION: Decreased left basilar consolidation. Signed: Jameel Rascon MD Report Verified Date/Time:09/10/2019 09:04:23 Reading Location: [facility] Radiology Readin Room Procedure Note Interface, External Ris In - 09/10/2019 2:36 PM SKILL TRAINING PROGRAM COORDINATOR FINAL REPORT Chest, 1 view, 09/10/2019 8:17 AM. History: Pneumonia. Comparison: Outside chest x-ray 09/08/20. Discussion: The cardiomediastinal silho uette and pulmonary vasculature are within normal limits for a portable exam. Patchy left basilar consolidation is present, decrea sed compared to prior exam. Right upper extremity PICC is unchanged in position. The soft tissues and osseous structures are intact. IMPRESSION: Decreased left basilar consolidation. Signed: Jameel Rascon MD Report Verified Date/Time: 09/10/2019 0 9:04:23 Reading Location: [facility] Radiology Readin g Room Performing Organization Address City/State/Zipcode Phone Number GE RIS after 01/28/2019 Insurance Payer Benefit Plan / Group Subscriber ID Type Phone A ddress MEDICARE MEDICARE PART A xxxxxxxxxxx Medicare Advance Directives For more information, please contact:[place] [address] [address] [place], [place] [phone] Code Status Date Activated Date Inactivated Comments Full Code 09/10/2019 6:56 AM 09/12/2019 3:26 PM This code status was determined by: Patient
--- OUTSIDE RECORDS SUMMARY | 2020-01-29 02:23 | XMS REPORT ---
:1950 Author Organization [facility] t Address [address] [place] [address] Care Team Providers Name Role Phone SLOANE ALEMAN Attending Clinician Unavailable Kenroy GARCIA, E Attending Clinician Doctor Unassigned, Name Attending Clinician Unavailable Macho GARCIA Attending Clinician Jermaine Attending Clinician Maya Echavarria MD Attending Clinician JADA ALEMAN Admitting Clinician Unavailable Maya Echavarria MD Admitting Clinician Problems This patient has no known problems. Allergies, Adverse Reactions, Alerts This patient has no known allergies or adverse reactions. Medications This patient has no known medications. Procedures This patient has no known procedures. Encounters Start End Encounter Admission Attending Care Care Encounter Source Date/Time Date/Time Type Type Clinicians Facility Department ID 2019-05-18 2019-05-18 Patient Annelise Jasmine Harshad [id number] 00:00:00 00:00:00 Outreach E T[place] [id number] [place] 4.2.7.2.686 [id number] 2019-05-15 2019-05-15 Orders Doctor AYLEEN [id number] 00:00:00 00:00:00 Only UnassCARMELO hernandez 350.1.13.10 [place] [facility] 4.2.7.2.686 [id number] 2019-05-09 2019-05-09 Transition Harshad Pritchard [id number] 00:00:00 00:00:00 of Care Marika Phelan 350.1.13.10 [place] 4.2.7.2.686 [id number] 2019-05-03 2019-05-08 [facility] Donnie Dean [id number] 18:08:09 11:42:00 Encounter Ehsan Echavarria 350.1.13.1 0 [facility] [id number] [id number] Results Test Description Test Time Test Comments Results Result Comments Source BLOOD CULTURE 2019-09-16 09:24:00 Test Item Value Reference Range Interpretation Comme nts CULTURE (BEAKER) (test code = 1095) No growth in 5 days BLOOD [id number] 09:24:00 Test Item Value Reference Range Interpretation Comments CULTURE (BEAKER) (test No growth in 5 days code = 1095) WOUND CULTURE + GRAM [id number] 09:28:00 Test Item Value Reference Interpretation Comments Range CULTURE (BEAKER) ACINETOBACTER A 4+ Acineto bacter (test code = 1095) BAUMANNII COMPLEX mitch annii complex Ampicillin + R Sulbactam (test code = 6) Cefazolin (test code R = 9) Cefepime (test code = R 51) Ceftazidime (test R code = 27) Ceftriaxone (test R code = 52) Gentamicin (test code S = 18) Levofloxacin (test R code = 22) Meropenem (test code R = 34) Tetracycline (test I code = 2) Tigecycline (test S code = 133) Tobramycin (test code S = 25) Trimethoprim + R Sulfamethoxazole (test code = 47) Colistimethate (test S code = 96) GRAM STAIN RESULT <1+ White blood (BEAKER) (test code = cells seen 1123) GRAM STAIN RESULT <1+ gram negative (BEAKER) (test code = rods 451312) GRAM STAIN RESULT <1+ gram positive (BEAKER) (test code = cocci 618503) 1+ Skin floraPOCT-GLUCOSE [id number] 11:48:00 Test Item Value Reference Range Interpretation Comments POC-GLUCOSE METER 116 mg/dL 70-110 H : Notified RN/MD: TESTED (BEAKER) (test code AT [address] PO[address] = 1538) [place] [id number]: Vehicle Insurance Agent/Techni juan ID = [id number] for Livia Kothari POCT-GLUCOSE [id number] 07:55:00 Test Item Value Reference Range Interpretation Comments POC-GLUCOSE METER 104 mg/dL 70-110 : Notified RN/MD: TESTED (BEAKER) (test code AT [place] [address] [address] = 1538) [place] [address]458: Vehicle Insurance Agent/Techni juan ID = [id number] for Livia Kothari CBC W/PLT COUNT & AUTO [id number] 07:26:00 Test Item Value Reference Range Interpretation Comments WHITE BLOOD CELL COUNT (BEAKER) 5.0 K/ L 4.0-10.0 (test code = 775) RED BLOOD CELL COUNT (BEAKER) 3.84 M/ L 4.20-5.80 L (test code = 761) HEMOGLOBIN (BEAKER) (test code = 11.3 GM/DL 13.0-16.8 L 410) HEMATOCRIT (BEAKER) (test code = 34.4 % 36.0-50.0 L 411) MEAN CORPUSCULAR VOLUME (BEAKER) 89.6 fL 82.0-99.0 (test code = 753) MEAN CORPUSCULAR HEMOGLOBIN 29.4 pg 27.0-33.0 (BEAKER) (test code = 751) MEAN CORPUSCULAR HEMOGLOBIN CONC 32.8 GM/DL 32.0-36.0 (BEAKER) (test code = 752) RED CELL DISTRIBUTION WIDTH 13.0 % 12.0-15.0 (BEAKER) (test code = 412) PLATELET COUNT (BEAKER) (test 176 K/CU MM 150-430 code = 756) MEAN PLATELET VOLUME (BEAKER) 10.4 fL 6.0-11.5 (test code = 754) NUCLEATED RED BLOOD CELLS 0 /100 WBC 0-0 (BEAKER) (test code = 413) (MANUAL DIFFERENTIAL)2019-09-12 07:26:00 Test Item Value Reference Range Interpretation Comments NEUTROPHILS - REL (DIFF) (BEAKER) 64 % (test code = 1359) LYMPHOCYTES - REL (DIFF) (BEAKER) 23 % (test code = 1360) MONOCYTES - REL (DIFF) (BEAKER) 4 % (test code = 1361) EOSINOPHILS - REL (DIFF) (BEAKER) 1 % (test code = 1362) BANDS - REL (DIFF) (BEAKER) (test 8 % 0-10 code = 1348) NEUTROPHILS - ABS (DIFF) (BEAKER) 3.20 K/ L 1.80-8.00 (test code = 1365) LYMPHOCYTES - ABS (DIFF) (BEAKER) 1.15 K/ L 1.48-4.50 L (test code = 1366) MONOCYTES - ABS (DIFF) (BEAKER) 0.20 K/ L 0.00-1.30 (test code = 1367) EOSINOPHILS - ABS (DIFF) (BEAKER) 0.05 K/ L 0.00-0.50 (test code = 1368) BANDS-ABS (DIFF) (BEAKER) (test 0.4 K/ L 0.0-0.8 code = 1349) TOTAL COUNTED (BEAKER) (test code = 100 1351) BANDS + SEGMENTED NEUTROPHILS 3.60 (BEAKER) (test code = 1352) WBC MORPHOLOGY (BEAKER) (test code Normal = 487) PLT MORPHOLOGY (BEAKER) (test code Normal = 486) ANISOCYTOSIS (BEAKER) (test code = 1+ few 961) COMPREHENSIVE METABOLIC [id number] 06:41:00 Test Item Value Reference Range Interpretation Comments TOTAL PROTEIN 6.7 gm/dL 6.0-8.5 (BEAKER) (test code = 770) ALBUMIN (BEAKER) 3.0 g/dL 3.5-5.0 L (test code = 1145) ALKALINE PHOSPHATASE 88 U/L 30-115 (BEAKER) (test code = 346) BILIRUBIN TOTAL 0.5 mg/dL 0.1-1.2 (BEAKER) (test code = 377) SODIUM (BEAKER) (test 141 meq/L 135-148 code = 381) POTASSIUM (BEAKER) 4.0 meq/L 3.6-5.5 (test code = 379) CHLORIDE (BEAKER) 103 meq/L 98-106 (test code = 382) CO2 (BEAKER) (test 30 meq/L 20-29 H code = 355) BLOOD UREA NITROGEN 32 mg/dL 10-26 H (BEAKER) (test code = 354) CREATININE (BEAKER) 3.01 mg/dL 0.50-1.20 H (test code = 358) GLUCOSE RANDOM 105 mg/dL 70-110 (BEAKER) (test code = 652) CALCIUM (BEAKER) 8.6 mg/dL 8.5-10.5 (test code = 697) AST (SGOT) (BEAKER) 20 U/L 5-40 (test code = 353) ALT (SGPT) (BEAKER) 11 U/L 5-50 (test code = 347) EGFR (BEAKER) (test 21 mL/min/1.73 ESTIMA YAYO GFR IS code = 1092) sq m NOT ACCURATE CREATININE CLEARANCE IN PREDICTING GLOMERULAR FILTRATION RATE . ESTIMATED GFR I S NOT APPLICABLE FOR DIALYSIS PATIEN TS. POCT-GLUCOSE [id number] 20:22:00 Test Item Value Reference Range Interpretation Comments POC-GLUCOSE METER 146 mg/dL 70-110 H : TESTED A T [address] (BEAKER) (test code [address], = 1538) [place] [id number]: Vehicle Insurance Agent/Techni juan ID = [id number] for Liliana Way POCT-GLUCOSE [id number] 17:35:00 Test Item Value Reference Range Interpretation Comments POC-GLUCOSE METER 89 mg/dL 70-110 : TESTED A T [address] (BEAKER) (test code = [address], 15[address]) [place] [address]: Vehicle Insurance Agent/Techni juan ID = [id number] for Yelitza Herman RESPIRATORY PANEL [id number] 14:24:00 Test Item Value Reference Range Interpretation Comments HUMAN METAPNEUMOVIRUS Not detected Not detected, (BEAKER) (test code = Equivocal 2683) RHINOVIRUS (BEAKER) Not detected Not detected, (test code = 2684) Equivocal INFLUENZA A (BEAKER) Not detected Not detected, (test code = 7965) Equivocal INFLUENZA A (NO SUBTYPE) (test code = 3606) INFLUENZA A SUBTYPE H1 (BEAKER) (test code = 2686) INFLUENZA A SUBTYPE H3 (BEAKER) (test code = 2687) INFLUENZA A SUBTYPE H1-2009 (BEAKER) (test code = 3198) INFLUENZA B (BEAKER) Not detected Not detected, (test code = 2688) Equivocal RESPIRATORY SYNCYTIAL Detected Not detected, A Assay is not able VIRUS (BEAKER) (test Equivocal differe ntiate between code = 3199) RSV A and RSV B.Contact isola tion if immunosuppre ssed or young childr en. Consider stoppi ng antibiotics. PARAINFLUENZA VIRUS 1 Not detected Not detected, (BEAKER) (test code = Equivocal 2691) PARAINFLUENZA VIRUS 2 Not detected Not detected, (BEAKER) (test code = Equivocal 2692) PARAINFLUENZA VIRUS 3 Not detected Not detected, (BEAKER) (test code = Equivocal 2693) PARAINFLUENZA VIRUS 4 Not detected Not detected, (BEAKER) (test code = Equivocal 3200) ADENOVIRUS (BEAKER) Not detected Not detected, (test code = 2694) Equivocal CORONAVIRUS 229E Not detected Not detected, (BEAKER) (test code = Equivocal 3201) CORONAVIRUS HKU1 Not detected Not detected, (BEAKER) (test code = Equivocal 3202) CORONAVIRUS NL63 Not detected Not detected, (BEAKER) (test code = Equivocal 3203) CORONAVIRUS OC43 Not detected Not detected, (BEAKER) (test code = Equivocal 3204) BORDETELLA PERTUSSIS Not detected Not detected, (BEAKER) (test code = Equivocal 3205) CHLAMYDOPHILA Not detected Not detected, PNEUMONIAE (BEAKER) Equivocal (test code = 3206) MYCOPLASMA PNEUMONIAE Not detected Not detected, (BEAKER) (test code = Equivocal 3207) Other viruses and bacteria not targeted by this PCR panel cannot be excluded; therefore clinical correlation and follow up of serology, culture results, and other molecular studies is required. The results are not intended to be used as the sole means for clinical diagnosis or patient management decisions. This sample was tested at the [facility] Molecular Diagnostics Laboratory using the CorMatrixArray Respiratory Panel. It is FDA cleared and has been verified and approved by the [facility] Molecular Diagnostics Laboratory for clinical use on nasopharyngeal swab specimens.The performance of the FilmArrayRP has not been established in individuals who received influenza vaccine. Recent administration ofa nasal influenza vaccine may cause false positive results for Influenza A and/orInfluenza B.POCT-GLUCOSE [id number] 12:01:00 Test Item Value Reference Range Interpretation Comments POC-GLUCOSE METER 103 mg/dL 70-110 : TESTED A T [facility] [address] (BEAKER) (test code [facility] [address] [address], = 1538) [facility] [place] [address]: Vehicle Insurance Agent/Techni juan ID = [id number] for Yelitza Herman POCT-GLUCOSE [id number] 08:23:00 Test Item Value Reference Range Interpretation Comments POC-GLUCOSE METER 99 mg/dL 70-110 : TESTED A T [address] (BEAKER) (test code = [address], 15[address]) [place] [address]: Vehicle Insurance Agent/Techni juan ID = [id number] for Yelitza Herman COMPREHENSIVE METABOLIC [id number] 05:12:00 Test Item Value Reference Range Interpretation Comments TOTAL PROTEIN 7.0 gm/dL 6.0-8.5 (BEAKER) (test code = 770) ALBUMIN (BEAKER) 3.3 g/dL 3.5-5.0 L (test code = 1145) ALKALINE PHOSPHATASE 105 U/L 30-115 (BEAKER) (test code = 346) BILIRUBIN TOTAL 0.6 mg/dL 0.1-1.2 (BEAKER) (test code = 377) SODIUM (BEAKER) (test 140 meq/L 135-148 code = 381) POTASSIUM (BEAKER) 4.0 meq/L 3.6-5.5 (test code = 379) CHLORIDE (BEAKER) 103 meq/L 98-106 (test code = 382) CO2 (BEAKER) (test 26 meq/L 20-29 code = 355) BLOOD UREA NITROGEN 37 mg/dL 10-26 H (BEAKER) (test code = 354) CREATININE (BEAKER) 3.18 mg/dL 0.50-1.20 H (test code = 358) GLUCOSE RANDOM 93 mg/dL 70-110 (BEAKER) (test code = 652) CALCIUM (BEAKER) 8.5 mg/dL 8.5-10.5 (test code = 697) AST (SGOT) (BEAKER) 20 U/L 5-40 (test code = 353) ALT (SGPT) (BEAKER) 12 U/L 5-50 (test code = 347) EGFR (BEAKER) (test 20 mL/min/1.73 ESTIMA YAYO GFR IS code = 1092) sq m NOT ACCURATE CREATININE CLEARANCE IN PREDICTING GLOMERULAR FILTRATION RATE . ESTIMATED GFR I S NOT APPLICABLE FOR DIALYSIS PATIEN TS. POCT-GLUCOSE [id number] 04:52:00 Test Item Value Reference Range Interpretation Comments POC-GLUCOSE METER 146 mg/dL 70-110 H : TESTED A T [address] (BEAKER) (test code [address], = 1538) [facility] [place] [address]: Vehicle Insurance Agent/Techni juan ID = [id number] for Kanwal Yoder CBC W/PLT COUNT & AUTO [id number] 04:46:00 Test Item Value Reference Range Interpretation Comments WHITE BLOOD CELL COUNT (BEAKER) 5.1 K/ L 4.0-10.0 (test code = 775) RED BLOOD CELL COUNT (BEAKER) 3.91 M/ L 4.20-5.80 L (test code = 761) HEMOGLOBIN (BEAKER) (test code = 11.3 GM/DL 13.0-16.8 L 410) HEMATOCRIT (BEAKER) (test code = 35.0 % 36.0-50.0 L 411) MEAN CORPUSCULAR VOLUME (BEAKER) 89.5 fL 82.0-99.0 (test code = 753) MEAN CORPUSCULAR HEMOGLOBIN 28.9 pg 27.0-33.0 (BEAKER) (test code = 751) MEAN CORPUSCULAR HEMOGLOBIN CONC 32.3 GM/DL 32.0-36.0 (BEAKER) (test code = 752) RED CELL DISTRIBUTION WIDTH 13.0 % 12.0-15.0 (BEAKER) (test code = 412) PLATELET COUNT (BEAKER) (test 143 K/CU MM 150-430 L code = 756) MEAN PLATELET VOLUME (BEAKER) 10.6 fL 6.0-11.5 (test code = 754) NUCLEATED RED BLOOD CELLS 0 /100 WBC 0-0 (BEAKER) (test code = 413) NEUTROPHILS RELATIVE PERCENT 57 % (BEAKER) (test code = 429) LYMPHOCYTES RELATIVE PERCENT 25 % (BEAKER) (test code = 430) MONOCYTES RELATIVE PERCENT 12 % (BEAKER) (test code = 431) EOSINOPHILS RELATIVE PERCENT 5 % (BEAKER) (test code = 432) BASOPHILS RELATIVE PERCENT 1 % (BEAKER) (test code = 437) NEUTROPHILS ABSOLUTE COUNT 2.89 K/ L 1.80-8.00 (BEAKER) (test code = 670) LYMPHOCYTES ABSOLUTE COUNT 1.25 K/ L 1.48-4.50 L (BEAKER) (test code = 414) MONOCYTES ABSOLUTE COUNT (BEAKER) 0.63 K/ L 0.00-1.30 (test code = 415) EOSINOPHILS ABSOLUTE COUNT 0.26 K/ L 0.00-0.50 (BEAKER) (test code = 416) BASOPHILS ABSOLUTE COUNT (BEAKER) 0.03 K/ L 0.00-0.20 (test code = 417) IMMATURE GRANULOCYTES-RELATIVE 0 % 0-0 PERCENT (BEAKER) (test code = 2801) U/S, ABDOMINAL, [id number] 01:31:00Reason for exam:->renal failure FINAL REPORT History: Abdominal pain and renal failure Abdominal ultrasound dated 09/10/2019 Comparison: None Comment: Real-time transabdominal ultrasound of the abdomen was performed. Liver: 15.0 cm , normal. Normal echogenicity. No focal lesions. Gallbladder: No gallstones. Diffuse gallbladder wall thickening, measuring 4 mm. No perocholecystic fluid.. No sonographic García's sign. The transverse diameter of the gallbladder lumen measures 2.4 cm. Biliary tree: No intrahepatic ductal dilatation. CBD: 4 mm. MPV: 11 mm Spleen: Normal size and echogenicity. Pancreas: Obscured by overlying bowel gas Right kidney: [...] Unremarkable ultrasound appearance of the kidneys. Signed: Reilly Hainesort Verified Date/Time: 09/11/2019 01:31:39 ONIN [id number] 17:00:00 Test Item Value Reference Range Interpretation Comments TROPONIN I (BEAKER) (test code = 397) < ng/mL 0.00-0.15 Troponin I (TnI) levels [...] acidosis, acute neurological disease, and persistent tachyarrhythmia.POCT-GLUCOSE [id number] 16:57:00 Test Item Value Reference Range Interpretation Comments POC-GLUCOSE METER 102 mg/dL 70-110 : Notified RN/MD: TESTED ([facility]) (test code AT [facility] [address] [facility] = 1538) [place] [address]: Vehicle Insurance Agent/Techni juan ID = [id number] for Thak er, [place] POCT-GLUCOSE [id number] 15:11:00 Test Item Value Reference Range Interpretation Comments POC-GLUCOSE METER 104 mg/dL 70-110 : Notified RN/MD: TESTED ([facility]) (test code AT [facility] [address] [place] = [address]38) [place] [address]: Vehicle Insurance Agent/Techni juan ID = [id number] for Thak er, [place] POCT-GLUCOSE [id number] 14:53:00 Test Item Value Reference Range Interpretation Comments POC-GLUCOSE METER 97 mg/dL 70-110 : Notified RN/MD: TESTED ([facility]) (test code = AT [facility] [address]) [place] [address]: Vehicle Insurance Agent/Techni juan ID = [id number] for Thak er, [place]en POCT-GLUCOSE [id number] 14:39:00 Test Item Value Reference Range Interpretation Comments POC-GLUCOSE METER 116 mg/dL 70-110 H : TESTED A T [facility] [address] ([facility]) (test code [address] [facility], = 1538) [place] [address]: Vehicle Insurance Agent/Techni juan ID = [id number] for Aanu siem, felicity TSH/FREE T4 IF [id number] 11:54:00 Test Item Value Reference Range Interpretation Comments THYROID STIMULATING HORMONE 1.59 uIU/mL 0.35-5.50 (BEAKER) (test code = 772) LIPID [id number] 09:55:00 Test Item Value Reference Range Interpretation Comments TRIGLYCERIDES (BEAKER) (test code = 120 mg/dL 540) CHOLESTEROL (BEAKER) (test code = 99 mg/dL 631) HDL CHOLESTEROL (BEAKER) (test code 28 mg/dL = 976) LDL CHOLESTEROL CALCULATED (BEAKER) 47 mg/dL (test code = 633) Triglyceride Reference Range: Low Risk <150 Borderline 150-199 High Risk 200-499 Very High Risk >=500Cholesterol Reference Range: Low Risk <200 Borderline 200-239 High Risk >240HDL Cholesterol Reference Range: Low Risk >=60 High Risk <40LDL Cholesterol Reference Range: Optimal <100 Near Optimal 100-129 Borderline 130-159 High 160-189 Very High >=190COMPREHENSIVE METABOLIC [id number] 09:54:00 Test Item Value Reference Range Interpretation Comments TOTAL PROTEIN 7.0 gm/dL 6.0-8.5 (BEAKER) (test code = 770) ALBUMIN (BEAKER) 3.3 g/dL 3.5-5.0 L (test code = 1145) ALKALINE PHOSPHATASE 107 U/L 30-115 (BEAKER) (test code = 346) BILIRUBIN TOTAL 0.6 mg/dL 0.1-1.2 (BEAKER) (test code = 377) SODIUM (BEAKER) (test 138 meq/L 135-148 code = 381) POTASSIUM (BEAKER) 4.4 meq/L 3.6-5.5 (test code = 379) CHLORIDE (BEAKER) 104 meq/L 98-106 (test code = 382) CO2 (BEAKER) (test 25 meq/L 20-29 code = 355) BLOOD UREA NITROGEN 39 mg/dL 10-26 H (BEAKER) (test code = 354) CREATININE (BEAKER) 3.10 mg/dL 0.50-1.20 H (test code = 358) GLUCOSE RANDOM 99 mg/dL 70-110 (BEAKER) (test code = 652) CALCIUM (BEAKER) 8.8 mg/dL 8.5-10.5 (test code = 697) AST (SGOT) (BEAKER) 21 U/L 5-40 (test code = 353) ALT (SGPT) (BEAKER) 14 U/L 5-50 (test code = 347) EGFR (BEAKER) (test 20 mL/min/1.73 ESTIMA YAYO GFR IS code = 1092) sq m NOT ACCURATE CREATININE CLEARANCE IN PREDICTING GLOMERULAR FILTRATION RATE . ESTIMATED GFR I S NOT APPLICABLE FOR DIALYSIS PATIEN TS. [id number] 09:54:00 Test Item Value Reference Range Interpretation Comments MAGNESIUM (BEAKER) (test code = 1.9 mg/dL 1.5-3.0 627) TROPONIN [id number] 09:54:00 Test Item Value Reference Range Interpretation Comments TROPONIN I (BEAKER) (test code = 397) < ng/mL 0.00-0.15 Troponin I (TnI) levels [...] disease, and persistent tachyarrhythmia.URINALYSIS W/ REFLEX URINE CULTURE 2019-09-10 09:49:00 Test Item Value Reference Range Interpretation Comments COLOR (BEAKER) (test code = Yellow 470) CLARITY (BEAKER) (test code = Clear 469) SPECIFIC GRAVITY UA (BEAKER) 1.025 1.001-1.035 (test code = 468) PH UA (BEAKER) (test code = 6.0 5.0-8.0 467) PROTEIN UA (BEAKER) (test code >=300 mg/dL Negative A = 464) GLUCOSE UA (BEAKER) (test code Negative Negative = 365) KETONES UA (BEAKER) (test code Negative Negative = 371) BILIRUBIN UA (BEAKER) (test Negative Negative code = 462) BLOOD UA (BEAKER) (test code = Small Negative A 461) NITRITE UA (BEAKER) (test code Negative Negative = 465) LEUKOCYTE ESTERASE UA (BEAKER) Negative Negative (test code = 466) UROBILINOGEN UA (BEAKER) (test 0.2 mg/dL 0.2-1.0 code = 463) BACTERIA (BEAKER) (test code = Moderate 517) AMORPHOUS CRYSTALS (BEAKER) Few (test code = 1584) RBC UA-MANUAL (BEAKER) (test None Seen /HPF code = 1659) WBC UA-MANUAL (BEAKER) (test <5 /HPF code = 1661) SQUAMOUS EPITHELIAL MANUAL <5 /HPF (BEAKER) (test code = 1663) SOURCE(BEAKER) (test code = 2795) B-TYPE NATRIURETIC FACTOR (BNP)2019-09-10 09:46:00 Test Item Value Reference Range Interpretation Comments B-TYPE NATRIURETIC PEPTIDE (BEAKER) 196 pg/mL 0-100 H (test code = 700) HEMOGLOBIN [id number] 09:18:00 Test Item Value Reference Range Interpretation Comments HEMOGLOBIN A1C (BEAKER) (test code = 8.0 % 4.3-6.1 H 368) RAD, CHEST, 1 VIEW, NON [id number] 09:04:00Reason for exam:- >pneumoniaShould this be performed at the bedside?->YesFINAL REPORT Chest, 1 view, 09/10/2019 8:17 AM. History: Pneumonia. Comparison: Outside chest x-ray 09/08/2019. Discussion: The cardiomediastinal silhouette and pulmonary vasculature are within normal limits for a portable exam. Patchy left basilar consolidation is present, decreased compared to prior exam. Right upper extremity PICC is unchanged in position. The soft tissuesand osseous structures are intact. IMPRESSION: Decreased left basilar consolidation. Signed: Jameel Rascon [facility] Verified Date/Time: 09/10/2019 09:04:23 Reading Location: [facility] Radiology Reading Room CBC W/PLT COUNT & AUTO [id number] 09:03:00 Test Item Value Reference Range Interpretation Comments WHITE BLOOD CELL COUNT (BEAKER) 3.5 K/ L 4.0-10.0 L (test code = 775) RED BLOOD CELL COUNT (BEAKER) 3.67 M/ L 4.20-5.80 L (test code = 761) HEMOGLOBIN (BEAKER) (test code = 10.9 GM/DL 13.0-16.8 L 410) HEMATOCRIT (BEAKER) (test code = 33.2 % 36.0-50.0 L 411) MEAN CORPUSCULAR VOLUME (BEAKER) 90.5 fL 82.0-99.0 (test code = 753) MEAN CORPUSCULAR HEMOGLOBIN 29.7 pg 27.0-33.0 (BEAKER) (test code = 751) MEAN CORPUSCULAR HEMOGLOBIN CONC 32.8 GM/DL 32.0-36.0 (BEAKER) (test code = 752) RED CELL DISTRIBUTION WIDTH 13.0 % 12.0-15.0 (BEAKER) (test code = 412) PLATELET COUNT (BEAKER) (test 139 K/CU MM 150-430 L code = 756) MEAN PLATELET VOLUME (BEAKER) 10.9 fL 6.0-11.5 (test code = 754) NEUTROPHILS RELATIVE PERCENT 48 % (BEAKER) (test code = 429) LYMPHOCYTES RELATIVE PERCENT 27 % (BEAKER) (test code = 430) MONOCYTES RELATIVE PERCENT 16 % (BEAKER) (test code = 431) EOSINOPHILS RELATIVE PERCENT 8 % (BEAKER) (test code = 432) BASOPHILS RELATIVE PERCENT 1 % (BEAKER) (test code = 437) NEUTROPHILS ABSOLUTE COUNT 1.69 K/ L 1.80-8.00 L (BEAKER) (test code = 670) LYMPHOCYTES ABSOLUTE COUNT 0.97 K/ L 1.48-4.50 L (BEAKER) (test code = 414) MONOCYTES ABSOLUTE COUNT (BEAKER) 0.57 K/ L 0.00-1.30 (test code = 415) EOSINOPHILS ABSOLUTE COUNT 0.27 K/ L 0.00-0.50 (BEAKER) (test code = 416) BASOPHILS ABSOLUTE COUNT (BEAKER) 0.03 K/ L 0.00-0.20 (test code = 417)
[2020-01-29] MEDS ORDERED: MORPHINE 4 MG/ML SYR ONE ×2 (02:42→09:01)
[2020-01-29 02:47] LABS: Basophils % 0.7 % (0-1.3); Hematocrit 35.7 % (39.6-49.0); Lymphocytes % 9.3 % (15.3-44.8); RBC Red Blood Cell Count 4.05 M/uL (4.33-5.43)
[2020-01-29 02:48] LABS: Protime INR 1.1
[2020-01-29 03:01] LABS: Albumin 3.4 g/dL (3.4-5.0); Bilirubin Direct 0.2 mg/dL (0-0.2); Bilirubin Total 0.4 mg/dL (0.2-1.0); Magnesium 1.7 mg/dL (1.8-2.4); Potassium 4.8 mmol/L (3.5-5.1); Protein, Total 8.3 g/dL (6.4-8.2); Troponin (Emerg Dept Use Only) 0.08 ng/mL (0.0-0.045)
[2020-01-29] MEDS ORDERED: MAGNESIUM SULFATE 1 gm IVPB 1 GM/100 ML BAG IV ONE (03:32)
[2020-01-29] MEDS ORDERED: ALPRAZOLAM 0.25 MG TABLET PO PRN (03:35)
[2020-01-29] MEDS ORDERED: MORPHINE 4 MG/ML SYR IV PRN (03:35)
[2020-01-29] MEDS ORDERED: ACETAMINOPHEN 500 MG TAB PO PRN (03:35)
--- NOTE | 2020-01-29 03:46 | ER ---
Nurse's Notes [facility] Name: Matt Izquierdo Age: 69 yrs Sex: Male : 1950 Arrival Date: 01/29/2020 Time: 02:19 Bed 5 Private MD: Diagnosis: ACUTE CORONARY SYNDROME Presentation: 01/28 02:21 Chief complaint: Patient states: Chest pain that began about 30-45 min prior to lp1 arrival; Patient given Nitro x1 by [facility] staff; Patient rated 9/10 on pain scale, given 324 ASA, no pain relief. 02:25 Coronavirus screen: Proceed with normal triage. Ebola Screen: No symptoms or risks lp1 identified at this time. Initial Sepsis Screen: Does the patient meet any 2 criteria? No. Patient's initial sepsis screen is negative. Does the patient have a suspected source of infection? No. Patient's initial sepsis screen is negative. Risk Assessment: Do you want to hurt yourself or someone else? Patient reports no desire to harm self or others. Onset of symptoms was January 29, 2020 at 01:45. 02:25 Method Of Arrival: EMS: [facility] lp1 02:25 Acuity: KIRSTY 3 lp1 Historical: - Allergies: 02:33 No Known Allergies; lp1 - Home Meds: 02:33 acetaminophen 325 mg Oral tab 2 tabs every 4 hours for Fever [Active]; acetaminophen lp1 325 mg Oral tab 2 tabs every 6 hours for Pain [Active]; acetaminophen-codeine 300-30 mg Oral tab 1 tab every 6 hours for Pain [Active]; amlodipine 10 mg tab 1 tab once daily [Active]; aspirin 81 mg Oral TbEC 1 tab once daily [Active]; hydrochlorothiazide 12.5 mg Oral tab 1 tab once daily [Active]; Insulin Glargine 10 units Sub-Q daily [Active]; metoprolol tartrate 25 mg Oral tab 1 tab 2 times per day [Active]; nitroglycerin 0.4 mg SL subl 1 tab every 5 minutes [Active]; Novolin 70/30 Innolet 8 units Sub-Q twice a day [Active]; ondansetron HCl 4 mg Oral tab every 8 hours [Active]; Santyl 250 unit/gram Topical oint twice a day for Skin Ulcer [Active]; - PMHx: 02:33 Anxiety; Diabetes - IDDM; Hypertension; Myocardial infarction; Pancreatitis; lp1 - PSHx: 02:33 Heart stents; Appendectomy; lp1 - Immunization history:: Adult Immunizations up to date. - Social history:: Smoking status: Patient denies any tobacco usage or history of. Screenin:33 Abuse screen: Denies threats or abuse. Denies injuries from another. Nutritional lp1 screening: No deficits noted. Tuberculosis screening: No symptoms or risk factors identified. 02:39 Fall Risk None identified. rv Assessment: 02:38 General: Appears uncomfortable, Behavior is calm, cooperative. Pain: Complains of pain rv in chest Pain does not radiate. Pain began suddenly. Neuro: Level of Consciousness is awake, alert, obeys commands, Oriented to person, place, time, situation. Cardiovascular: Patient's skin is warm and dry. Rhythm is sinus rhythm. Respiratory: Airway is patent. Derm: Skin with poor turgor. 05:23 Reassessment: Patient and/or family updated on plan of care and expected duration. Pain rv level reassessed. Patient is alert, oriented x 3, equal unlabored respirations, skin warm/dry/pink. 07:30 General: Appears in no apparent distress. comfortable, Behavior is calm, cooperative, sv appropriate for age. Pain: Denies pain. Neuro: Level of Consciousness is awake, alert, obeys commands, Oriented to person, place, time, situation. Cardiovascular: Rhythm is sinus rhythm. Respiratory: Airway is patent Respiratory effort is even, unlabored, Respiratory pattern is regular, symmetrical. Derm: Skin is normal. 09:08 Reassessment: Pt c/o chest pain, like he was earlier. pt has morphine 4 mg IV ordered sv and will be given. Left voicemail for Dr Luther, Dr Kolb to call us regarding pt. Vital Signs: 02:25 BP 158 / 86; Pulse 64; Resp 18; Temp 98; Pulse Ox 99% on R/A; Weight 86.18 kg (R); lp1 Height 5 ft. 11 in. (180.34 cm); Pain 8/10; 03:00 BP 142 / 79; Pulse 58; Resp 17; Pulse Ox 100% on R/A; rv 04:00 BP 145 / 80; Pulse 58; Resp 17; Pulse Ox 96% on R/A; rv 05:00 BP 132 / 68; Pulse 60; Resp 14; Pulse Ox 97% ; rv 06:18 BP 149 / 79; Pulse 63; Resp 13; Pulse Ox 97% on R/A; Pain 2/10; rv 07:00 BP 132 / 69; Pulse 63; Resp 11; Pulse Ox 97% ; sv 08:00 BP 134 / 70; Pulse 63; Resp 16; Pulse Ox 98% ; sv 08:49 BP 153 / 90; Pulse 73; Resp 16; Pulse Ox 98% ; sv 09:00 BP 153 / 89; Pulse 77; Resp 20; Pulse Ox 97% ; sv 02:25 Body Mass Index 26.50 (86.18 kg, 180.34 cm) lp1 ED Course: 02:19 Patient arrived in ED. cl3 02:20 Escobar Gee, RN is Primary Nurse. rv 02:23 William Rodríguez MD is Attending Physician. tw4 02:26 Triage completed. lp1 02:26 Arm band placed on. lp1 02:33 Patient has correct armband on for positive identification. Placed in gown. Bed in low lp1 position. reheater on. Pulse ox on. NIBP on. 02:38 No provider procedures requiring assistance completed. Initial lab(s) drawn, by me, rv sent to lab. Inserted saline lock: 20 gauge in right antecubital area, using aseptic technique. Blood collected. Patient maintains SpO2 saturation greater than 95% on room air. 02:45 XRAY Chest (1 view) In Process Unspecified. EDMS 03:46 Binh Do MD is Hospitalizing Provider. tw4 10:03 Patient admitted, IV remains in place. intact. sv 10:04 Primary Nurse role handed off by Escobar Gee, RADHA sv 10:04 Orquidea Diggs, RADHA is Primary Nurse. sv Administered Medications: 02:45 Drug: morphine 4 mg Route: IVP; Site: right antecubital; rv 05:11 Follow up: Response: No adverse reaction; Marked relief of symptoms; Pain is decreased; rv RASS: Alert and Calm (0) Outcome: 03:46 Decision to Hospitalize by Provider. tw4 06:19 Condition: good rv 06:19 Instructed on the need for admit, Demonstrated understanding of instructions. rv 10:03 Admitted to ER Hold. Please see [facility] for further documentation. sv 12:41 Patient left the ED. sv Signatures: Dispatcher [employer] Orquidea Spaulding RN RN sv Stefanie Hollis RN RN lp1 William Rodríguez MD MD tw4 Escobar Gee RN RN Giulia Hurd cl3 Corrections: (The following items were deleted from the chart) 02:26 02:21 Chief complaint: Patient states: Chest pain that began about 30-45 min prior to lp1 arrival; Patient given Nitro x1 by [facility] staff; Patient rated 9/10 on pain scale, given 324 ASA lp1
--- NOTE | 2020-01-29 03:47 | EDPHYS ---
Physician Documentation [facility] Name: Matt Izquierdo Age: 69 yrs Sex: Male : 1950 Arrival Date: 01/29/2020 Time: 02:19 Bed 5 Private MD: ED Physician William Rodríguez HPI: 01/28 02:32 This 69 yrs old Male presents to ER via EMS with complaints of Chest Pain. tw4 02:32 The patient or guardian reports chest pain that is located primarily in the anterior tw4 chest wall, left. Onset: just prior to arrival, 1 hour(s) ago. The pain does not radiate. Associated signs and symptoms: The patient has no apparent associated signs or symptoms. The chest pain is described as dull. Duration: The patient or guardian reports a single episode. Severity of pain: At its worst the pain was moderate. Historical: - Allergies: 02:33 No Known Allergies; lp1 - Home Meds: 02:33 acetaminophen 325 mg Oral tab 2 tabs every 4 hours for Fever [Active]; acetaminophen lp1 325 mg Oral tab 2 tabs every 6 hours for Pain [Active]; acetaminophen-codeine 300-30 mg Oral tab 1 tab every 6 hours for Pain [Active]; amlodipine 10 mg tab 1 tab once daily [Active]; aspirin 81 mg Oral TbEC 1 tab once daily [Active]; hydrochlorothiazide 12.5 mg Oral tab 1 tab once daily [Active]; Insulin Glargine 10 units Sub-Q daily [Active]; metoprolol tartrate 25 mg Oral tab 1 tab 2 times per day [Active]; nitroglycerin 0.4 mg SL subl 1 tab every 5 minutes [Active]; Novolin 70/30 Innolet 8 units Sub-Q twice a day [Active]; ondansetron HCl 4 mg Oral tab every 8 hours [Active]; Santyl 250 unit/gram Topical oint twice a day for Skin Ulcer [Active]; - PMHx: 02:33 Anxiety; Diabetes - IDDM; Hypertension; Myocardial infarction; Pancreatitis; lp1 - PSHx: 02:33 Heart stents; Appendectomy; lp1 - Immunization history:: Adult Immunizations up to date. - Social history:: Smoking status: Patient denies any tobacco usage or history of. ROS: 02:32 Constitutional: Negative for fever, chills, and weight loss, Eyes: Negative for injury, tw4 pain, redness, and discharge, Respiratory: Negative for shortness of breath, cough, wheezing, and pleuritic chest pain, Abdomen/GI: Negative for abdominal pain, nausea, vomiting, diarrhea, and constipation, Back: Negative for injury and pain, MS/Extremity: Negative for injury and deformity, Skin: Negative for injury, rash, and discoloration, Neuro: Negative for headache, weakness, numbness, tingling, and seizure. 02:32 Cardiovascular: Positive for chest pain, Negative for edema, orthopnea, palpitations, paroxysmal nocturnal dyspnea. Exam: 02:32 Constitutional: This is a well developed, well nourished patient who is awake, alert, tw4 and in no acute distress. Head/Face: Normocephalic, atraumatic. Chest/axilla: Normal chest wall appearance and motion. Nontender with no deformity. No lesions are appreciated. Cardiovascular: Regular rate and rhythm with a normal S1 and S2. No gallops, murmurs, or rubs. Normal PMI, no JVD. No pulse deficits. Respiratory: Lungs have equal breath sounds bilaterally, clear to auscultation and percussion. No rales, rhonchi or wheezes noted. No increased work of breathing, no retractions or nasal flaring. Abdomen/GI: Soft, non-tender, with normal bowel sounds. No distension or tympany. No guarding or rebound. No evidence of tenderness throughout. Back: No spinal tenderness. No costovertebral tenderness. Full range of motion. MS/ Extremity: Pulses equal, no cyanosis. Neurovascular intact. Full, normal range of motion. Neuro: Awake and alert, GCS 15, oriented to person, place, time, and situation. Cranial nerves II-XII grossly intact. Motor strength 5/5 in all extremities. Sensory grossly intact. Cerebellar exam normal. Normal gait. Vital Signs: 02:25 BP 158 / 86; Pulse 64; Resp 18; Temp 98; Pulse Ox 99% on R/A; Weight 86.18 kg (R); lp1 Height 5 ft. 11 in. (180.34 cm); Pain 8/10; 03:00 BP 142 / 79; Pulse 58; Resp 17; Pulse Ox 100% on R/A; rv 04:00 BP 145 / 80; Pulse 58; Resp 17; Pulse Ox 96% on R/A; rv 05:00 BP 132 / 68; Pulse 60; Resp 14; Pulse Ox 97% ; rv 06:18 BP 149 / 79; Pulse 63; Resp 13; Pulse Ox 97% on R/A; Pain 2/10; rv 07:00 BP 132 / 69; Pulse 63; Resp 11; Pulse Ox 97% ; sv 08:00 BP 134 / 70; Pulse 63; Resp 16; Pulse Ox 98% ; sv 08:49 BP 153 / 90; Pulse 73; Resp 16; Pulse Ox 98% ; sv 09:00 BP 153 / 89; Pulse 77; Resp 20; Pulse Ox 97% ; sv 02:25 Body Mass Index 26.50 (86.18 kg, 180.34 cm) lp1 MDM: 03:02 Patient medically screened. tw4 06:18 Differential diagnosis: acute myocardial infarction, acute pericarditis, coronary tw4 artery disease myocarditis, pericarditis, pulmonary embolus, stable angina, thoracic aortic disection. HEART Score: History: Moderately Suspicious (1), ECG: Non specific repolarization disturbance / LBTB / PM (1), Age: > or = 65 years (2), Risk Factors: 1 or 2 risk factors (1), [Hypertension] [DM] Troponin: < or = 1 x Normal Limit (0), Total Score = 5. The patient was given aspirin in the Emergency Department. Data reviewed: vital signs, nurses notes, lab test result(s), cardiac enzymes, CBC, hepatic panel, EKG, radiologic studies, plain films. Data interpreted: monitoring manager: rhythm is normal sinus rhythm, Pulse oximetry: Interpretation: normal. Counseling: I had a detailed discussion with the patient and/or guardian regarding: the historical points, exam findings, and any diagnostic results supporting the discharge/admit diagnosis, lab results, radiology results. Medication response: Nitro x 1 partially relieved pain, morphine markedly relieved the patient's pain. Symptoms have improved. Response to treatment: and as a result, I will admit patient, NITRATES AND LOVENONX. Physician consultation: Binh Do MD regarding admission, to the telemetry unit. patient's condition, and will see patient in ED. 01/28 02:28 Order name: Basic Metabolic Panel; Complete Time: 03:22 tw4 01/28 03:23 Interpretation: Normal except: CRE 3.69; GFR 16; BUN 52; GLUC 156; CL 108. 01/28 02:28 Order name: CBC with Diff; Complete Time: 03:[address] [facility] 01/28 03:23 Interpretation: Normal except: RBC 4.05; HGB 11.9; HCT 35.7; LYM% 9.3; JUAN J% 79.8; NEUT tw4 A 8.7. 01/28 02:28 Order name: LFT's; Complete Time: 03:[address] [facility] 01/28 03:23 Interpretation: Normal except: AST 11; ALT 11; TP 8.3; GLOB 4.9; A/G 0.7. 01/28 02:28 Order name: Magnesium; Complete Time: 03:[address] [facility] 01/28 03:23 Interpretation: Normal except: MG 1.7. 01/28 02:28 Order name: NT PRO-BNP; Complete Time: 03:[address] [facility] 01/28 03:23 Interpretation: Normal except: NT PRO-BNP 37615. 01/28 02:28 Order name: PT-INR; Complete Time: 03:[address] [facility] 01/28 03:23 Interpretation: Abnormal: PT 13.0. 01/28 02:28 Order name: Troponin (emerg Dept Use Only); Complete Time: 03:[address] [facility] 01/28 03:24 Interpretation: Abnormal: TROPED 0.08. 01/28 02:28 Order name: XRAY Chest (1 view) [facility] 01/28 03:39 Order name: Echo with Doppler [facility] 01/28 03:40 Order name: Lipid Profile [facility] 01/28 03:40 Order name: Lipid Profile [facility] 01/28 03:40 Order name: Troponin I [facility] 01/28 03:40 Order name: Troponin I [facility] 01/28 03:40 Order name: Troponin I [facility] 01/28 02:28 Order name: EKG; Complete Time: 02:29 01/28 02:28 Order name: Cardiac monitoring; Complete Time: 05:10 01/28 02:28 Order name: EKG - Nurse/Tech; Complete Time: 02:34 01/28 02:28 Order name: IV Saline Lock; Complete Time: 05:10 01/28 02:28 Order name: Labs collected and sent; Complete Time: 05:10 4 01/28 02:28 Order name: O2 Per Protocol; Complete Time: 02:57 4 01/28 02:28 Order name: O2 Sat Monitoring; Complete Time: 02:57 4 01/28 03:39 Order name: CONS Physician Consult [facility] 01/28 03:39 Order name: CONS Physician Consult [facility] 01/28 03:39 Order name: Heart Healthy [facility] 01/28 03:40 Order name: EKG Electrocardiogram [facility] 01/28 03:40 Order name: EKG Electrocardiogram [facility] 01/28 10:19 Order name: US EDIA EC:32 Rate is 63 beats/min. Rhythm is regular, Normal Sinus Rhythm. QRS [place] is Normal. TN tw4 interval is normal. QT interval is normal. No Q waves. T waves are Inverted in leads II, III, aVF, V5, V6. No ST changes noted. Clinical impression: NSR w/ Non-specific ST/T Changes. Interpreted by me. Reviewed by me. Administered Medications: 02:45 Drug: morphine 4 mg Route: IVP; Site: right antecubital; rv 05:11 Follow up: Response: No adverse reaction; Marked relief of symptoms; Pain is decreased; rv RASS: Alert and Calm (0) Disposition: 01/29/20 03:46 Hospitalization ordered by Binh Do for Inpatient Admission. Preliminary diagnosis is ACUTE CORONARY SYNDROME. - Bed requested for [facility] ER HOLD. - Status is Inpatient Admission. sv - Condition is Fair. - Problem is new. - Symptoms have improved. Signatures: Dispatcher [employer] [facility] Solange Silva Orquidea Diggs, RN RN sv Stefanie Hollis, RN RN lp1 William Rodríguez MD MD tw4 Escobar Gee, RN RN rv Corrections: (The following items were deleted from the chart) 09:51 03:46 Hospitalization Ordered by Binh Do MD for Inpatient Admission. Preliminary bd diagnosis is ACUTE CORONARY SYNDROME. Bed requested for Telemetry/MedSurg (Inpatient). Status is Inpatient Admission. Condition is Fair. Problem is new. Symptoms have improved. tw4 12:41 09:51 01/29/2020 03:46 Hospitalization Ordered by Binh Do MD for Inpatient sv Admission. Preliminary diagnosis is ACUTE CORONARY SYNDROME. Bed requested for [facility] ER HOLD. Status is Inpatient Admission. Condition is Fair. Problem is new. Symptoms have improved. bd
[2020-01-29] MEDS: METOPROLOL TAR 50 MG TAB PO SCH ×2 (06:00→09:00)
[2020-01-29 06:19] LABS: Troponin I 0.07 ng/mL (0.0-0.045)
--- NOTE | 2020-01-29 07:00 | EKG ---
Test Date: 2020-01-29 Test Time: 02:22:00 Net Software Architect: RV MEASUREMENT RESULTS: Intervals: Rate: 63 WV: 170 QRSD: 104 QT: 438 QTc: 448 Hayes: P: WV: 170 QRS: -11 T: -51 INTERPRETIVE STATEMENTS: Normal sinus rhythm Septal infarct, age undetermined Inferior infarct, age undetermined Abnormal ECG Compared to ECG 11/19/2019 16:34:19 Left ventricular hypertrophy no longer present Myocardial infarct finding still present Electronically Signed On 01-29-20 06:59:58 CDT by Tobin Kolb
--- NOTE | 2020-01-29 07:53 | RAD REPORT ---
EXAM DESCRIPTION: Korey Single View01/29/2020 2:45 am CLINICAL HISTORY: Chest pain COMPARISON: November FINDINGS: Mild left basilar opacity The right lung appears clear of acute infiltrate. The heart is normal size IMPRESSION: Mild left basilar opacity probably mild atelectasis or scarring
[2020-01-29] MEDS ORDERED: REGADENOSON 0.4 MG/5 ML SYR IV ONE (08:19)
--- NOTE | 2020-01-29 08:57 | P.HP ---
Certification for Inpatient Patient admitted to: Observation With expected LOS: <2 Midnights Patient will require the following post-hospital care: None Practitioner: I am a practitioner with admitting privileges, knowledge of patient current condition, hospital course, and medical plan of care. Services: Services provided to patient in accordance with Admission requirements found in Title 42 Section 412.3 of the Code of Federal Regulations Patient History Date of Service: 01/29/20 Reason for admission: Chest pain rule out acute coronary syndrome History of Present Illness: Patient is a 69-year-old gentleman who lives at [facility] who comes into the hospital with chest discomfort. Pain was mainly in the sternal region and was persistent and not getting better. Patient's history of Coronary artery disease with stent placement. Since patient's symptoms were not improving he 1 to get evaluated at the hospital. In the emergency room patient was found have acute on chronic renal insufficiency along with elevated troponin. Patient has not seen a roll forger in quite a while. Will order an echocardiogram along with stress testing. Cardiology consultation will be ordered as well. Will also get Nephrology consultation along with renal ultrasound. If patient's workup is unremarkable then we can discharge him home. Otherwise he may need further intervention per Cardiology or Nephrology. Allergies No Known Allergies Allergy (Unverified 12/18/15 19:47) Home Medications: Amlodipine [Norvasc*] 10 mg PO DAILY 11/26/19 Amlodipine [Norvasc*] 10 mg PO DAILY #30 tab 11/26/19 Ampicillin Trihydrate 250 mg PO BID #84 capsule 11/26/19 Aspirin 81 mg PO DAILY 11/26/19 Insulin 70/30 NPH/Reg Human [Novolin 70/30*] 8 unit SQ BID 11/26/19 Insulin Glargine,Hum.rec.anlog [Lantus] 10 unit SQ DAILY #1 bottle 11/26/19 Metoprolol Tartrate [Lopressor*] 25 mg PO BID 6AM 6PM #60 tab 11/26/19 Na Bicarb Tab [Sodium Bicarb 325 MG Tab*] 650 mg PO BID #120 tab 11/26/19 Nitroglycerin [Nitrostat*] 0.4 mg SL PRN PRN MDD X 3 within 15 min 11/26/19 hydroCHLOROthiazide [Hydrochlorothiazide*] 25 mg PO DAILY 11/26/19 - Past Medical/Surgical History Diabetic: Yes -: Hypertension -: DM -: Anxiety -: [place] x3 -: Pancreatitis -: Cardiac Stents -: Appy Rt middle toe amputated - Family History Father Family History: Reviewed- Non-Contributory - Social History Smoking Status: Never smoker Alcohol use: No CD- Drugs: No Caffeine use: Yes Review of Systems 10-point ROS is otherwise unremarkable Physical Examination - Vital Signs Temperature: 98 F Blood Pressure: 140/70 Pulse: 80 Respirations: 18 Pulse Ox (%): 98 - Physical Exam General: Alert, In no apparent distress, Oriented x3 HEENT: Atraumatic, PERRLA, Mucous membr. moist/pink, EOMI, Sclerae nonicteric Neck: Supple, 2+ carotid pulse no bruit, No LAD, Without JVD or thyroid abnormality Respiratory: Clear to auscultation bilaterally, Normal air movement Cardiovascular: Regular rate/rhythm, Normal S1 S2, Systolic murmur Gastrointestinal: Normal bowel sounds, Soft and benign, Non-distended, No tenderness Musculoskeletal: No clubbing, No swelling, No tenderness Integumentary: No rashes Neurological: Normal gait, Normal speech, Normal strength at 5/5 x4 extr, Normal tone, Sensation intact, Cranial nerves 3-12 intact, Normal affect Lymphatics: No axilla or inguinal lymphadenopathy - Studies Laboratory Data (last 24 hrs) 01/29/20 02:30: PT 13.0 H, INR 1.10 01/29/20 02:30: WBC 10.9, Hgb 11.9 L, Hct 35.7 L, Plt Count 224 01/29/20 02:30: Sodium 139, Potassium 4.8, BUN 52 H, Creatinine 3.69 H, Glucose 156 H, Magnesium 1.7 L, Total Bilirubin 0.4, AST 11 L, ALT 11 L, Alkaline Phosphatase 51 Assessment & Plan - Problems (Diagnosis) (1) Chest pain, rule out acute myocardial infarction Current Visit: Yes Status: Acute (2) Acute on chronic kidney failure Current Visit: Yes Status: Acute (3) Diabetes mellitus Current Visit: No Status: Chronic Qualifiers: (4) Hypertension Current Visit: No Status: Chronic Qualifiers: - Plan 1. Serial troponins and EKG 2. Cardiology consultation 3. Echocardiogram and stress testing 4. Anti-platelet therapy, anti coagulation, beta-liban, statin, and O2 as needed 5. IV morphine for pain 6. Nitro p.r.n. 7. Renal ultrasound 8. Nephrology consultation 9. Monitor renal function closely 10. GI and DVT prophylaxis Discharge Plan: Custodial Plan to discharge in: 48 Hours - Advance Directives Does patient have a Living Will: No Does patient have a Durable POA for Healthcare: No - Code Status/Comfort Care Code Status Assessed: Yes Code Status: Full Code Critical Care: No Time Spent Managing PTS Care (In Minutes): 45
[2020-01-29] MEDS ORDERED: ASPIRIN 325 MG TAB PO SCH (09:00)
[2020-01-29] MEDS ORDERED: ASPIRIN EC 81 MG TAB PO SCH (09:00)
[2020-01-29] MEDS ORDERED: HEPARIN 5000 UNIT/ML 1 ML VIAL SQ SCH (09:00)
[2020-01-29] MEDS ORDERED: HEPARIN 5000 UNIT/ML 1 ML VIAL ONE (09:01)
[2020-01-29] MEDS ORDERED: ASPIRIN EC 325 MG TABLET PO ONE (09:01)
[2020-01-29] MEDS ORDERED: HYDROMORPHONE HCL 1 MG/ML INJ IV ONE (09:13)
[2020-01-29] MEDS ORDERED: ASPIRIN 325 MG TAB ONE (09:30)
[2020-01-29] MEDS ORDERED: METOPROLOL TAR 25 MG TAB ONE (09:31)
[2020-01-29] MEDS ORDERED: HYDROMORPHONE HCL 1 MG/ML INJ ONE (09:40)
[2020-01-29 09:55] VITALS: BMI 26.4
[2020-01-29] MEDS ORDERED: NA CHLORIDE 0.9% 1,000 ML IV SCH (10:00)
--- NOTE | 2020-01-29 10:13 | P.CNS ---
Date of Consult: 01/29/20 Reason for Consult: CKD Chief Complaint: Chest pain rule out acute coronary syndrome History of Present Illness: HPI 69-year-old male with PMHx of DM, HTN , CKD IV baseline Cr 3.1-3.4 , CAD, and poor compliance with meds pt presented for chest pain pt sudden in onset sharp , retrosternal , non radiating , associated with nausea and SOB , didnt respond to morphine pt Cr was 3.7 in ER , Trop X 1 wnl pt denied vomiting, diarrhea, chnge in urinary frequency or urinary urgency or hematuria No Known Allergies Allergy - Past Medical/Surgical History Diabetic: Yes -: Hypertension -: DM -: Anxiety -: LA x3 -: Pancreatitis -: Cardiac Stents -: Appy Rt middle toe amputated - Social History Smoking Status: Unknown if ever smoked Alcohol use: No CD- Drugs: No Caffeine use: Yes Place of Residence: Home Physical exam general: AAOX3, in moderate to sever distress obese Neck; Supple, No elevated JVD hear: RRR, normal S1,2 no murmur or rub Chest: CTAB, no rales or wheezes Abdomen: Soft , Nt Extremities no edema A/P NOHELIA on CKD IV vs progressive CKD possibly progressive CKD vs dehydration will order US if pt requires HD , then he is as high risk for contrast nephropathy ,will need to start on IVF , and pt might need to initiate HD , risks and benifits explained and pt comprehend understanding renal dose meds chest pain pain control if pt requires HD , then he is as high risk for contrast nephropathy ,will need to start on IVF , and pt might need to initiate HD , risks and benifits explained and pt comprehend understanding HAGMA due to CKD cont sodium bicarb DM as per primary HTN resume home meds total time spent 45min Allergies No Known Allergies Allergy (Unverified 12/18/15 19:47) Home Medications: Amlodipine [Norvasc*] 10 mg PO DAILY 11/26/19 Amlodipine [Norvasc*] 10 mg PO DAILY #30 tab 11/26/19 Ampicillin Trihydrate 250 mg PO BID #84 capsule 11/26/19 Aspirin 81 mg PO DAILY 11/26/19 Insulin 70/30 NPH/Reg Human [Novolin 70/30*] 8 unit SQ BID 11/26/19 Insulin Glargine,Hum.rec.anlog [Lantus] 10 unit SQ DAILY #1 bottle 11/26/19 Metoprolol Tartrate [Lopressor*] 25 mg PO BID 6AM 6PM #60 tab 11/26/19 Na Bicarb Tab [Sodium Bicarb 325 MG Tab*] 650 mg PO BID #120 tab 11/26/19 Nitroglycerin [Nitrostat*] 0.4 mg SL PRN PRN MDD X 3 within 15 min 11/26/19 hydroCHLOROthiazide [Hydrochlorothiazide*] 25 mg PO DAILY 11/26/19 - Past Medical/Surgical History Diabetic: Yes -: Hypertension -: DM -: Anxiety -: LA x3 -: Pancreatitis -: Cardiac Stents -: Appy Rt middle toe amputated - Family History Father Family History: Reviewed- Non-Contributory - Social History Smoking Status: Unknown if ever smoked Alcohol use: No CD- Drugs: No Caffeine use: Yes Place of Residence: [place] Physical Examination Temp Pulse Resp BP Pulse Ox 98 F 75 18 152/86 H 98 01/29/20 08:57 01/29/20 09:00 01/29/20 08:57 01/29/20 09:00 01/29/20 08:57 Laboratory Data (last 24 hrs) 01/29/20 02:30: PT 13.0 H, INR 1.10 01/29/20 02:30: WBC 10.9, Hgb 11.9 L, Hct 35.7 L, Plt Count 224 01/29/20 02:30: Sodium 139, Potassium 4.8, BUN 52 H, Creatinine 3.69 H, Glucose 156 H, Magnesium 1.7 L, Total Bilirubin 0.4, AST 11 L, ALT 11 L, Alkaline Phosphatase 51
--- NOTE | 2020-01-29 10:18 | RAD REPORT ---
EXAM DESCRIPTION: US - Renal Ultrasound-Complete - 01/29/2020 10:08 am CLINICAL HISTORY: Acute renal insufficiency. Chronic renal disease COMPARISON: 2019 FINDINGS: The right kidney measures 10 cm with an increased echotexture. The left kidney measures 9 cm with an increased echotexture. Hydronephrosis is not seen. No gross abnormality of bladder is seen IMPRESSION: Mildly increased renal echotexture consistent with parenchymal disease
--- NOTE | 2020-01-29 10:47 | EKG ---
Test Date: 2020-01-29 Test Time: 09:16:23 Bisque Tile Burner: ANGELA MEASUREMENT RESULTS: Intervals: Rate: 74 MN: 174 QRSD: 90 QT: 402 QTc: 446 [place]: P: MN: 174 QRS: 0 T: -20 INTERPRETIVE STATEMENTS: Normal sinus rhythm T wave abnormality, consider inferior ischemia Abnormal ECG Compared to ECG 01/29/2020 02:22:00 T-wave abnormality now present Possible ischemia now present Myocardial infarct finding no longer present Electronically Signed On 01-29-20 10:47:01 CDT by Tobin Kolb
[2020-01-29] MEDS ORDERED: PNEUMOCOCCAL VACCINE 0.5 ML IMVAC ONE (11:00)
[2020-01-29] MEDS ORDERED: NA CHLORIDE 0.9% 500 ML ONE (12:12)
[2020-01-29] MEDS ORDERED: FENTANYL CITR 100 MCG/2 ML ONE (12:38)
[2020-01-29] MEDS ORDERED: ATROPINE SULF 1 MG/10 ML SYR IV ONE (12:38)
[2020-01-29] MEDS ORDERED: LIDOCAINE 1% MPF 30 ML VIAL ONE (12:38)
[2020-01-29] MEDS ORDERED: MIDAZOLAM HCL 5 MG/5 ML INJ ONE (12:38)
[2020-01-29] MEDS ORDERED: NA CHLORIDE 0.9% 0 ML ONE (12:38)
[2020-01-29] MEDS ORDERED: HEPA 1000U/500MLS 1,000 UNIT/500 ML BAG IV ONE (12:38)
[2020-01-29] MEDS ORDERED: ONDANSETRON 4 MG/2 ML VIAL ONE (12:42)
[2020-01-29] MEDS ORDERED: ACETYLCYST 20% 4 ML VIAL IH ONE (12:48)
[2020-01-29 14:58] VITALS: O2SAT 98
--- NOTE | 2020-01-29 15:51 | P.PN ---
Subjective Date of Service: 01/29/20 Chief Complaint: Chest pain rule out acute coronary syndrome Physical Examination - Vital Signs Temperature: 98 F Blood Pressure: 128/63 Pulse: 61 Respirations: 18 Pulse Ox (%): 98 - Studies Laboratory Data (last 24 hrs) 01/29/20 02:30: PT 13.0 H, INR 1.10 01/29/20 02:30: WBC 10.9, Hgb 11.9 L, Hct 35.7 L, Plt Count 224 01/29/20 02:30: Sodium 139, Potassium 4.8, BUN 52 H, Creatinine 3.69 H, Glucose 156 H, Magnesium 1.7 L, Total Bilirubin 0.4, AST 11 L, ALT 11 L, Alkaline Phosphatase 51 Assessment & Plan Physician Review Additional Text: Spoke with Cardiology after heart catheterization. Patient has extensive cardiac disease. Cardiology plans to transfer patient to [facility] for CABG. Arrangements will be made. Cardiology has spoken to cardiovascular surgery. Surgery is planned within the next 48 hr. His worsening renal function will be further addressed after CABG. Patient will likely require hemodialysis in the near future. Will update music typographer.
--- NOTE | 2020-01-29 16:01 | P.DS ---
Admission Date: 01/29/20 Discharge Date: 01/29/20 Primary Care Provider: unknown Disposition: TRANSFER TO [facility] Discharge Condition: GOOD Reason for Admission: Chest pain rule out acute coronary syndrome Consultations: Cardiology-Dr. Kolb Nephrology-Dr. Freitas Procedures: Heart catheterization showing extensive cardiac disease. Medical problem list: Chest pain secondary to NSTEMI status post heart catheterization showing extensive cardiac disease requiring CABG Hypertension Acute on chronic renal disease stage 4 Diabetes mellitus type 2 insulin dependent Hyperlipidemia Brief History of Present Illness: 69-year-old male presented to the emergency room with chest pain. Patient found to have elevated troponin. Patient with history of CAD, hypertension, diabetes mellitus type 2 in chronic renal disease. Hospital Course: Patient presented with chest pain. Patient with underlying CAD, hypertension, chronic renal disease stage IV, diabetes mellitus type 2 insulin dependent, and hyperlipidemia. Patient found to have elevated troponin with suspicious of NSTEMI. Cardiology and nephrology were consulted. Patient had heart catheterization showing extensive cardiac disease. Cardiology recommends CABG. Cardiology spoke to cardiovascular surgery. Patient will be transferred to [facility] for CABG. His acute on chronic renal disease stage IV will be further addressed after CABG. Patient will likely require hemodialysis and likely end up end-stage renal disease on hemodialysis. This will be further addressed and monitored at [facility]. Case discussed in detail. Patient has been accepted to transfer. Patient stable for transfer. Vital Signs/Physical Exam: Temp Pulse Resp BP Pulse Ox 98 F 61 18 128/63 98 01/29/20 15:51 01/29/20 15:51 01/29/20 15:51 01/29/20 15:51 01/29/20 15:51 General: Alert, In no apparent distress, Oriented x3, Cooperative HEENT: Atraumatic Neck: Supple Respiratory: Clear to auscultation bilaterally, Normal air movement Cardiovascular: Normal pulses, Regular rate/rhythm Gastrointestinal: Normal bowel sounds, Soft and benign, Non-distended Laboratory Data at Discharge: WBC 10.9 K/uL (4.3-10.9) 01/29/20 02:30 Hgb 11.9 g/dL (13.6-17.9) L 01/29/20 02:30 Hct 35.7 % (39.6-49.0) L 01/29/20 02:30 Plt Count 224 K/uL (152-406) 01/29/20 02:30 PT 13.0 SECONDS (9.5-12.5) H 01/29/20 02:30 INR 1.10 01/29/20 02:30 Sodium 139 mmol/L (136-145) 01/29/20 02:30 Potassium 4.8 mmol/L (3.5-5.1) 01/29/20 02:30 BUN 52 mg/dL (7-18) H 01/29/20 02:30 Creatinine 3.69 mg/dL (0.55-1.3) H 01/29/20 02:30 Glucose 156 mg/dL (74-106) H 01/29/20 02:30 Magnesium 1.7 mg/dL (1.8-2.4) L 01/29/20 02:30 Total Bilirubin 0.4 mg/dL (0.2-1.0) 01/29/20 02:30 AST 11 U/L (15-37) L 01/29/20 02:30 ALT 11 U/L (12-78) L 01/29/20 02:30 Alkaline Phosphatase 51 U/L (45-117) 01/29/20 02:30 Troponin I 0.07 ng/mL (0.0-0.045) H 01/29/20 05:45 Triglycerides 106 mg/dL (<150) 01/29/20 05:45 Cholesterol 168 mg/dL (<200) 01/29/20 05:45 HDL Cholesterol 43 mg/dL (40-60) 01/29/20 05:45 Cholesterol/HDL Ratio 3.91 01/29/20 05:45 Home Medications: Amlodipine [Norvasc*] 10 mg PO DAILY #30 tab 11/26/19 Aspirin 81 mg PO DAILY 11/26/19 Insulin 70/30 NPH/Reg Human [Novolin 70/30*] 8 unit SQ BID 11/26/19 Insulin Glargine,Hum.rec.anlog [Lantus] 10 unit SQ DAILY #1 bottle 11/26/19 Metoprolol Tartrate [Lopressor*] 25 mg PO BID 6AM 6PM #60 tab 11/26/19 Nitroglycerin [Nitrostat*] 0.4 mg SL PRN PRN MDD X 3 within 15 min 11/26/19 hydroCHLOROthiazide [Hydrochlorothiazide*] 12.5 mg PO DAILY 11/26/19 Patient Discharge Instructions: Patient be transferred to [facility] for cardiovascular surgery Diet: Renal Activity: Fall precautions Time spent managing pt's care (in minutes): 55
[2020-01-29 17:09] VITALS: BP 148/82; TEMP 97.5
[2020-01-29] MEDS ORDERED: ACETYLCYST 20% 800 MG/4 ML VIAL PO ONE (21:00)
--- NOTE | 2020-01-29 21:09 | OP ---
Date of Procedure: 01/29/2020 Surgeon: Tobin Kolb MD Human Service Worker: Maddie Wall. Admitted to Dr. Do on 01/29/2020. Procedure: Left heart catheterization, selective coronary arteriogram. Indication: Non-ST elevation myocardial infarction. History Of Present Illness: Mr. Izquierdo is a 69-year-old man has chronic renal disease stage IV, hype rtension, diabetes, coronary artery disease status post multiple stents, anxiety, and pancreatitis. Came in with chest pain, positive troponin, positive BNP, continued chest pain despite morphine and D emerol. Procedure In Detail: They brought to the dairy lab technician rather acutely because of his continued chest pain for catheterization. He was prepped and draped in the routine sterile fashion. Given Versed for se dation. A 6-Turkmen sheath introduced in the right common femoral artery successfully. Angiography t here was normal. StarClose was used to close the procedure. Mony catheter left and right were us ed to do the diagnostic catheterization. He was found to have a completely occluded RCA approximatel y with collaterals to the PDA from the left system. He had a 70% left main. He had a 99% proximal L AD in-stent restenosis with KAYLEI 2 flow. He had a 100% diagonal. He had a 90% obtuse marginal 1 and 2. A 6-Turkmen sheath and catheters were used. No complications. Blood Loss: 5 mL. Postoperative Diagnosis: Severe coronary artery disease, 3-vessel plus left main disease. Plan: To send patient to [facility] to Dr. Jameel Cole for rather urgent coronary a rtery bypass surgery. He has a creatinine of 3.69. Dr. Cole, and his staff is aware of that. ey will deal with that after his surgery. He is pain free now after the procedure, and I feel comfor table with him going to telemetry. Anesthesia: Total conscious sedation was 45 minutes. NB/MODL Voice ID: [id number] Report ID: [id number]
--- NOTE | 2020-01-30 00:42 | CON ---
Date of Consultation: 01/29/2020 The patient admitted to Dr. Do's service on 01/29/2020. Reason For Consultation: Non-ST elevation myocardial infarction. History Of Present Illness: Mr. Izquierdo is a 69-year-old male, kind of lost to follow up in general, but he has a history of chronic renal disease stage IV, hypertension, diabetes, coronary artery disea se, anxiety, and pancreatitis. The patient came into the emergency room with chest pain that has bee n going on for about 2-3 hours. His troponin was 0.08. His BNP was 17,128. His glucose was 156, cr eatinine is 3.69. EKG showed LVH. Chest x-ray was negative. Patient continued to have severe chest pain, substernal, radiating to the arms and the back with some nausea and diaphoresis, shortness of breath, kept getting morphine and Demerol without any relief. The patient was taken to the rn labor delivery emergently because of his symptoms despite his creatinine. Allergies: NONE. Review of Systems: Negative. Social History: Negative. Family History: Negative. Medications: At home include, 1.Norvasc. 2.Aspirin. 3.Insulin. 4.Metoprolol. 5.Hydrochlorothiazide. Physical Examination: General: He was in moderate distress from pain. Vital Signs: Stable, afebrile. He was in sinus rhythm. HEENT: Negative. Neck: Supple with no bruit. Chest: Clear. Cardiac: Revealed a regular rhythm and rate with an S4 gallops. No murmurs or rubs. Abdomen: Benign. Extremities: Revealed no clubbing, cyanosis, or edema. Diagnostic Data: Listed earlier. Impression And Plan: Acute coronary syndrome with non-ST elevation into the rn labor delivery. Th e patient does understand that he is at risk for kidney failure from the contrast. He understand the risk and the benefits of the procedure and he agrees to proceed. Nephrology is following. Echocard iogram is pending. We will continue his present regimen, see what the catheterization shows before m aking any final decisions. NB/MODL Voice ID: [id number] Report ID: [id number]
--- NOTE | 2020-01-30 07:13 | ECHO ---
HEIGHT: 5 ft 11 in WEIGHT: 189 lb 9.561 oz DATE OF STUDY: 01/29/[address]: Binh Do MD 2-DIMENSIONAL: YES M.MODE: YES DOPPLER: YES COLOR FLOW: YES TDS: PORTABLE: DEFINITY: BUBBLE STUDY: DIAGNOSIS: CHEST PAIN CARDIAC HISTORY: CATHERIZATION: SURGERY: PROSTHETIC VALVE: PACEMAKER: MEASUREMENTS (cm) DIASTOLIC (NORMALS) SYSTOLIC (NORMALS) IVSd 1.2 (0.6-1.2) LA Diam 4.2 (1.9-4.0) LVEF 42% LVIDd 5.0 (3.5-5.7) LVIDs 3.9 (2.0-3.5) %FS 21% LVPWd 1.2 (0.6-1.2) Ao Diam 2.5 (2.0-3.7) 2 DIMENSIONAL ASSESSMENT: RIGHT ATRIUM: NORMAL LEFT ATRIUM: DILATED RIGHT VENTRICLE: NORMAL LEFT VENTRICLE: NORMAL SIZE TRICUSPID VALVE: NORMAL MITRAL VALVE: MITRAL ANNULAR CALCIFICATION PULMONIC VALVE: NORMAL AORTIC VALVE: SCLEROSIS PERICARDIAL EFFUSION: NONE AORTIC ROOT: NORMAL LEFT VENTRICULAR WALL MOTION: MILD GLOBAL HYPOKINESIS. DOPPLER/COLOR FLOW: NORMAL COMMENTS: MILD GLOBAL HYPOKINESIS. EJECTION FRACTION 42%. LEFT ATRIAL ENLARGEMENT. MITRAL ANNULAR CALCIFICATION. AORTIC SCLEROSIS, NO STENOSIS. TECHNOLOGIST: JARETT ALCOCER
== END 2020-01-29 18:24 | disposition short-term general hospital (02) ==
LOC: ER 02:17 → ERHOLD 03:42 → 2ND 13:14
PROVIDERS: ADMIT Hospitalist; ATTEND Hospitalist
PROC: B201YZZ Plain Radiography of Multiple Coronary Arteries using Other Contrast (ICD-10-PCS; principal; 2020-01-29)
DX: I21.4 Non-ST elevation (NSTEMI) myocardial infarction (principal); I25.10 Atherosclerotic heart disease of native coronary artery without angina pectoris; N17.9 Acute kidney failure, unspecified; I12.9 Hypertensive chronic kidney disease with stage 1 through stage 4 chronic kidney disease, or unspecified chronic kidney disease; N18.4 Chronic kidney disease, stage 4 (severe); E78.5 Hyperlipidemia, unspecified; I10 Essential (primary) hypertension; E11.22 Type 2 diabetes mellitus with diabetic chronic kidney disease; F41.9 Anxiety disorder, unspecified; I25.2 Old myocardial infarction
CPT/HCPCS: 93454 ×2; 93005; 93306; 85025; 80048; 36415; 83735; 85610; 80061; 82947; 80076; 84484 ×3; 83880; 71045; 76770; 96374; 99285; C1893; J1644; J2250; J3010; J3475; J1170; G0378 ×3; J7040; J7030; J2405; J0583; J2785